=== PATIENT | female | born 1945 | race Caucasian/White ===

== ENCOUNTER 2017-12-10 19:38 | Inpatient (IN) | payer MEDICARE, MEDICAID ==
[2017-12-10 20:00] LABS: Actual Bicarbonate (HCO3a) 19.2 mEq/L (22-26); Base Excess (BEa) -7.6 mEq/L (0 (+/-) 2.5); CO2 Tension 44.3 mmHg (35.0-45.0); Hematocrit-ABG 28.6 % (36.0-47.0); Hemoglobin (Hb) 10.7 g/dL (12.0-16.0); O2 Tension (PaO2) 83.3 mmHg (80.0-100.0); pH, Arterial 7.26 (7.35-7.45)
[2017-12-10 20:02] LABS: Analyzer IN Cardio ER; Calcium, Ionized 1.2 mmol/L (1.12-1.30); Puncture Site RR
[2017-12-10 20:03] LABS: Hemoglobin 9.8 g/dL (12.0-16.0); Mean Corpuscular HGB CONC 32.4 g/dL (32.0-36.0); Mean Corpuscular Volume 92.6 fl (81.0-99.0); Mean Platelet Volume 8.2 fL (7.4-10.4); Platelet Count 136 thou/uL (130-400); Red Blood Cell (RBC) Count 3.25 mill/uL (4.20-5.40); White Blood Cell (WBC) Count 4.6 thou/uL (4.8-10.8)
[2017-12-10 20:04] LABS: Bilirubin Negative (Negative); Blood, Urine Large (Negative); Clarity TURBID (Clear); Glucose, Urine (Dipstick) Negative (Negative); Leukocyte Large (Negative); Nitrite Negative (Negative); Protein, Urine (Dipstick) 100 mg/dL (Neg-Trace); Specific Gravity, Urine 1.013 (1.002-1.036); pH, Urine 7.5 (5.0-9.0)
[2017-12-10 20:06] LABS: Bacteria/HPF 4+ HPF (None Seen)
[2017-12-10 20:08] LABS: Pathc Cast-AUWi Flag 37.29 (0-2.49); Yeast-AUWi Flag 1635.3 (0-25.0)
[2017-12-10 20:08] LABS: INR-International Normal Ratio 1.4; PTT 30.8 SEC (22.9-36.1); Prothrombin Time 17.9 SEC (12.0-14.7)
[2017-12-10 20:14] LABS: Amphetamine Not Detected (NotDetected); Barbiturates Screen Detected (NotDetected); Benzodiazepine Screen Not Detected (NotDetected); Cocaine Metabolite Screen Not Detected (NotDetected); Medtox Control Line Valid? VALID (VALID); Medtox Reader # READER 4; Methadone Not Detected (NotDetected); Methamphetamine Not Detected (NotDetected); Opiate Screen Not Detected (NotDetected); Oxycodone Screen Not Detected (NotDetected); Phencyclidine (PCP) Not Detected (NotDetected); THC/Cannabinoid Screen Not Detected (NotDetected); Tricyclic Screen Not Detected (NotDetected)
[2017-12-10 20:16] LABS: Yeast-All Forms 2+ HPF (None Seen)
[2017-12-10 20:17] LABS: Hyaline Casts/LPF NONE SEEN LPF (0-3 Hyaline); Manual Microscopic Reviewed? No Path Casts Seen; Transitional Epithelial NONE SEEN HPF (0-3)
[2017-12-10 20:20] LABS: Band 18 % (5-11); Hypochromia SLIGHT = 6-15 cells (100X) (0-5/hpf); Lymphocytes 11 % (21-51); MDiff Complete? YES; Metamyelocyte 2 % (0-0); Monocytes 4 % (0-10); Myelocyte 1 % (0-0); Neutrophil 64 % (42-75); PLT Morphology Comment Appears Adequate
[2017-12-10 20:23] LABS: ALT (SGPT) 13 U/L (8-55); AST (SGOT) 42 U/L (5-34); Albumin 2.4 g/dL (3.4-4.8); Alkaline Phosphatase 37 U/L (40-150); Anion Gap 14 mmol/L (10-20); BUN (Urea Nitrogen) 42 mg/dL (9.8-20.1); Bilirubin, Total 0.4 mg/dL (0.2-1.2); Calc. Creatinine Clearance 0 mL/min (70-130); Calcium 7.8 mg/dL (7.8-10.44); Carbon Dioxide 18 mmol/L (23-31); Chloride 116 mmol/L (98-107); Estimated GFR-MDRD 32; Globulin 2.8 g/dL (2.4-3.5); Glucose 90 mg/dL (83-110); Protein, Total 5.2 g/dL (6.0-8.3); Sodium 145 mmol/L (136-145)
[2017-12-10 20:25] LABS: CKMB 6.6 ng/mL (0-6.6)
[2017-12-10 21:09] LABS: Troponin I 0.024 ng/mL (< 0.028)
[2017-12-10] MEDS ORDERED: Cefepime 2 GM/10 ML SYR ONE ×2 (21:16→21:39)
--- NOTE | 2017-12-10 21:32 | CT ---
HEAD CT WITHOUT CONTRAST 12/10/17 COMPARISON: 12/10/17 HISTORY: Altered mental status. TECHNIQUE: Serial axial CT imaging obtained at 5 mm intervals from vertex through skull base without contrast. FINDINGS: There is cerebral volume loss and cerebellar volume loss, stable. Periventricular hypodensity noted, evidence of small vessel disease. No intracranial hemorrhage, midline shift or mass effect. IMPRESSION: Stable volume loss. No intracranial hemorrhage. If there is concern for acute infarction, brain MRI i s recommended. POS: [facility]
--- NOTE | 2017-12-10 21:35 | RAD ---
PORTABLE FRONTAL CHEST RADIOGRAPH 12/10/17 COMPARISON: Prior study on same day. HISTORY: Urosepsis, intubated patient. FINDINGS: Supine imaging limits assessment for pneumothorax and pleural fluid. There is a right sided vascular catheter, distal tip overlying the region of the cavoatrial junction. There is a round calcified lesi on in the left upper quadrant, correlating with a calcified splenic lesion noted on a CT examination of the abdomen performed 12/18/12. Endotracheal tube terminating at the level of the clavicles. There is diffuse increased interstitial density in the perihilar regions and lung bases with dense op acity in the left base and blunting of the left costophrenic angles suggesting left pleural fluid, st able. IMPRESSION: Stable endotracheal tube. New right sided vascular catheter. Increased density in the perihilar regio n and lung bases suggests pulmonary edema, infectious pneumonitis or aspiration. POS: [facility]
--- NOTE | 2017-12-10 22:05 | RAD ---
PORTABLE SUPINE FRONTAL CHEST RADIOGRAPH 12/10/17 at 9:25 p.m. COMPARISON: 12/10/17 at 8:36 p.m. HISTORY: Emergency examination. FINDINGS: Stable endotracheal tube and right sided vascular catheter. Stable nonspecific pleural and parenchyma l opacity in the left lung base. Aeration is improved in the medial right lung base with mild residua l patchy nonspecific parenchymal opacity. IMPRESSION: Mild interval improvement in right basilar aeration. Study appears grossly unchanged otherwise. POS: [facility]
[2017-12-10] MEDS ORDERED: Ondansetron HCl/PF 4 MG/2 ML Vial IVP PRN (23:06)
[2017-12-10 23:08] LABS: Troponin I 0.037 ng/mL (< 0.028)
[2017-12-10] MEDS ORDERED: VANCOMYCIN IVPB SCH (23:28)
[2017-12-10 23:57] VITALS: BMI 22.6
[2017-12-10] MEDS ORDERED: Potassium Chloride 40 MEQ in Sodium Chloride 0.9% 250 ML 250 ML IVPB SCH (23:59)
[2017-12-11] MEDS: Sodium Chloride 0.9% 1,000 ML IV SCH ×2 (00:13→09:58)
--- NOTE | 2017-12-11 00:42 | HP ---
DATE OF ADMISSION: 12/10/2017 CHIEF COMPLAINT: 1. Acute respiratory failure. 2. Acute respiratory failure with low blood pressures. HISTORY OF PRESENT ILLNESS: This is a 72-year-old female. She is a resident of a long-term. The patient had a sudden drop in her blood pressures in 50s/30s and saturations went down and was noted to have urosepsis so long-term called the EMS and when the EMS arrived, the patient was completely hypoxic with saturations of 50%. The patient was intubated by EMS personnel and was started on IV f luids en route to [facility] When patient arrived here, she already received 4 liters of f luids and her blood pressures were 95/57 with a heart rate of 107. The patient was immediately start ed on Levophed drip in this hospital and she is completely intubated and unresponsive and she was sta rted on propofol sedation. The patient had a urinary tract infection with a normal white count, with clear signs of sepsis. She also had a chest x-ray here which was suspicious for a right lower lobe pneumonia, but otherwise no other source of infection could be noted. There is no family member acco mpanying the patient, so I called the number provided, Any Reddoch, the person to be notified, but th ere was no response and the phone was disconnected, the phone number was not valid, so unable to get any history from any of the family members nor any previous records. The patient has been assumed as a full code and been admitted to the ICU at this time. PAST MEDICAL HISTORY: 1. Patient has a history of seizures in the past. 2. Type 2 diabetes mellitus. 3. History of chronic hyponatremia. 4. History of depression. 5. History of recurrent infections. 6. She has contractures, possibly has a history of stroke in the past. 7. History of hypertension. 8. History of dyslipidemia. 9. She has a history of developmental delay and mental retardation. PAST SURGICAL HISTORY: Appendectomy. SOCIAL HISTORY: The patient lives in [facility]. She has a sister, Any Reddoch whom I tried to reach with no response at this time. The patient has otherwise no history of smoking. No history of alcohol, no history of illicit drug use. FAMILY HISTORY: No significant family history could be found on the previous charts and unable to ge t this history at this time because of the mental status. REVIEW OF SYSTEMS: Unable to get any review of systems because the patient is intubated. ALLERGIES: NITROFURANTOIN, SULFA ANTIBIOTICS. HOME MEDICATIONS: No home medications could be found at this time. We will talk to the long-term facility and get home medication list reconciled. PHYSICAL EXAMINATION: VITAL SIGNS: Blood pressures on Levophed drip overnight is 87/58 with a MAP of 70-75. Pulse ox 98% on 100% oxygen on 100% FiO2. Respiratory rate is 18. GENERAL: The patient is intubated currently and sedated. HEENT: Atraumatic, normocephalic. PERRLA. Extraocular movements could not be assessed as the patie nt is sedated. CARDIOVASCULAR: S1, S2 normal. No murmurs, rubs or gallops. LUNGS: Bilateral air entry was equal. Mild crackles were noted in the lower bases. ABDOMEN: Soft, nontender, no guarding, no rebound tenderness. Bowel sounds are normal. MUSCULOSKELETAL: No cough tenderness. No pedal edema. Patient has contractures of all 4 extremitie s. SKIN: No cyanosis, no erythema, no rash, no pallor. NEUROLOGIC: Cranial examination could not be done as the patient is intubated and sedated. PSYCHIATRIC: Cannot be done as the patient is intubated. NECK: Showing no evidence of any JVD. No thyromegaly. LABORATORY DATA: WBC is 4.6, hemoglobin is 9.8, hematocrit is 30.1, platelets are 136. Sodium is 14 5, potassium 3.0, chloride is 116, bicarbonate is 18, BUN is 42, creatinine is 1.58, AST 42, ALT 13. Troponin 0.037. ASSESSMENT AND PLAN: 1. Septic shock. 2. Acute urinary tract infection. 3. Possible right lower lobe pneumonia. 4. Acute hypokalemia. 5. Vgx-QG-vwzxawgtd myocardial infarction. 6. Acute hypoxic respiratory failure. 7. Type 2 diabetes mellitus. 8. Acute kidney injury, on chronic kidney disease stage 4. 9. Anemia of chronic disease. 10. History of previous strokes. PLAN: 1. Plan is to admit this patient to the ICU and continue with the mechanical ventilation at this mundo e. Pulmonary has been consulted from the ER. We will closely follow up with their recommendations. Currently, the plan is to continue the patient on Levophed drip to keep them between 65-70. We will continue with IV fluids at this time at 100 mL an hour. Patient already got 3.5 liters in the ER an d we will continue with the fluid resuscitation and closely monitor the urine output. 2. Patient has evidence of urinary tract infection with the possible pneumonia in the right lung. W e will start with cefepime 2 grams IV b.i.d. with vancomycin 1 gram b.i.d. and along with levofloxaci n to cover pseudomonal infection. We will continue with the blood cultures evaluation and we will re peat blood culture evaluation. 3. Patient has a history of acute kidney injury. We will closely monitor. We will continue the pat ient on IV fluids at this time. Patient has low potassium. We will replace the potassium with potas sium protocol. 4. The patient has type 2 diabetes mellitus. Her blood sugars are well controlled at this time and we will closely monitor. We will get hemoglobin A1c. 5. Patient has history of stroke and has contractures. We will closely monitor. Possibly, this cou ld be another major stroke, but the CT of brain was negative. We will consult Neurology in the [facility]. 6. The patient has elevated troponins, most likely this could be a demand ischemia or possible MS as the patient's troponins were trending up. We will closely monitor and we will get a 2D echo in the morning. At that point, we will consult Cardiology. 7. We will continue with aspirin. We will do a perirectal aspirin today as a CT head was negative. 8. Cannot give beta blockers because of low heart rate. 9. CODE STATUS: FULL CODE as there is no family member available at this time and tried to reach al l the family members and none of the phone numbers on the chart are working at this time. May need t o reconnect with her long-term in the morning to get the code status corrected. 10. DVT prophylaxis with Lovenox 40 mg subcu daily. I spent 75 minutes with this patient of this one hour is the critical care time.
[2017-12-11] MEDS ORDERED: Norepinephrine 8 MG in Sodium Chloride 0.9% 250 ML 250 ML IVPB PRN (00:46)
[2017-12-11] MEDS ORDERED: Dextrose 50% Abboject 50 ML SYRINGE IVP PRN (00:46)
[2017-12-11] MEDS ORDERED: Dextrose 5% in Water 1,000 ML IV PRN (00:46)
[2017-12-11] MEDS: Insulin Regular 300 UNITS/3 ML VIAL SC PRN ×3 (02:36→22:08)
[2017-12-11 02:44] LABS: Troponin I 0.043 ng/mL (< 0.028)
[2017-12-11 06:48] LABS: ALT (SGPT) 13 U/L (8-55); AST (SGOT) 41 U/L (5-34); Albumin 2.3 g/dL (3.4-4.8); Alkaline Phosphatase 40 U/L (40-150); Anion Gap 10 mmol/L (10-20); BUN (Urea Nitrogen) 34 mg/dL (9.8-20.1); Bilirubin, Total 0.3 mg/dL (0.2-1.2); CRP (Inflammatory) 31.72 mg/dL (= or < 0.5); Calc. Creatinine Clearance 42 mL/min (70-130); Calcium 7.8 mg/dL (7.8-10.44); Carbon Dioxide 19 mmol/L (23-31); Chloride 119 mmol/L (98-107); Estimated GFR-MDRD 46; Glucose 88 mg/dL (83-110); Protein, Total 5.3 g/dL (6.0-8.3); Sodium 144 mmol/L (136-145)
[2017-12-11 06:52] LABS: Band 53 % (5-11); Hemoglobin 9.6 g/dL (12.0-16.0); Lymphocytes 13 % (21-51); MDiff Complete? YES; Mean Corpuscular HGB CONC 32.9 g/dL (32.0-36.0); Mean Corpuscular Hemoglobin 29.3 pg (27.0-31.0); Mean Corpuscular Volume 89.1 fl (81.0-99.0); Mean Platelet Volume 7.4 fL (7.4-10.4); Metamyelocyte 2 % (0-0); Monocytes 5 % (0-10); Neutrophil 27 % (42-75); PLT Morphology Comment Appears Adequate; Platelet Count 205 thou/uL (130-400); Red Blood Cell (RBC) Count 3.27 mill/uL (4.20-5.40); Vacuoles SLIGHT; White Blood Cell (WBC) Count 8.7 thou/uL (4.8-10.8)
[2017-12-11 08:02] LABS: Actual Bicarbonate (HCO3a) 18.1 mEq/L (22-26); Base Excess (BEa) -5.7 mEq/L (0 (+/-) 2.5); CO2 Tension 29.6 mmHg (35.0-45.0); O2 Tension (PaO2) 157.2 mmHg (80.0-100.0); pH, Arterial 7.41 (7.35-7.45)
[2017-12-11 08:03] LABS: Calcium, Ionized 1.2 mmol/L (1.12-1.30); Hematocrit-ABG 29.2 % (36.0-47.0); Hemoglobin (Hb) 9.7 g/dL (12.0-16.0); Puncture Site RRA
[2017-12-11] MEDS ORDERED: Prevnar 13-Val Conj/PF 0.5 ML SYRINGE IM ONE (09:00)
[2017-12-11] MEDS ORDERED: FLU VACC TS2017-18 (>65YR) 0.5 ML SYRINGE IM ONE (09:00)
[2017-12-11] MEDS ORDERED: Cefepime 2 GM in Sodium Chloride 0.9% 100 ML IVPB SCH ×2 (09:00→21:00)
[2017-12-11] MEDS ORDERED: Famotidine/PF 20 mg/2ml Vial SLOW IVP SCH (09:00)
[2017-12-11] MEDS ORDERED: Cefepime 2 GM, Syringe 2.5 ML in Sodium Chloride 0.9% 10 ML SLOW IVP SCH (09:00)
--- NOTE | 2017-12-11 09:11 | RAD ---
ABDOMEN 1 VIEW: HISTORY: A 72-year-old female with a history of NG tube placement for position check. FINDINGS: There is marked rotation to the left. There is a large stable intrasplenic calcification ossificatio n noted. NG tube is noted extending into the region of the distal antrum of the stomach. Minimal ga s in nondilated small bowel. IMPRESSION: Nasogastric tube in satisfactory location. Large stable ossification within the spleen. Scattered g as in essentially nondilated small bowel, nonspecific. POS: [facility]
[2017-12-11] MEDS: Aspirin 300 MG Suppository PR SCH (09:50)
[2017-12-11] MEDS: Enoxaparin Sodium 30 MG/0.3 ML SYRINGE SC SCH (09:52)
[2017-12-11] MEDS ORDERED: Famotidine 40 MG/4 ML VIAL SLOW IVP SCH (10:15)
--- NOTE | 2017-12-11 10:55 | PDOC.PN ---
- Subjective Encounter Start Date: 12/11/17 Encounter Start Time: 11:03 Subjective: Remains intubated 2/2 acute hypoxic respiratory failure. -: No acute events overngiht. - Objective Resuscitation Status: Resuscitation Status FULL:Full Resuscitation MAR Reviewed: Yes Vital Signs & Weight: Vital Signs (12 hours) Temp Pulse Resp BP 12/11/17 08:00 100.6 F H 102 H 22 H 12/11/17 07:52 102 H 107/72 12/11/17 07:00 100.6 F H 12/11/17 06:00 16 12/11/17 04:00 16 12/11/17 03:17 112 H 12/11/17 02:00 16 12/11/17 00:17 97 12/11/17 00:00 97.9 F 16 Most Recent Monitor Data Heart Rate from ECG 99 NIBP 122/62 NIBP BP-Mean 84 Respiration from ECG 16 SpO2 100 I&O: 12/10/17 12/11/17 12/12/17 06:59 06:59 06:59 Intake Total 270 250 Output Total 240 140 Balance 30 110 Result Diagrams: 12/11/17 06:10 12/11/17 06:10 Additional Labs: Accuchecks 12/11/17 12/11/17 12/11/17 09:14 06:11 01:59 POC Glucose 71 86 199 H Phys Exam - Physical Examination Constitutional: NAD HEENT: PERRLA, moist MMs, sclera anicteric Neck: no JVD, supple Respiratory: no wheezing, no rales, no rhonchi, clear to auscultation bilateral Cardiovascular: RRR, no significant murmur, no rub Gastrointestinal: soft, non-tender, no distention, positive bowel sounds Musculoskeletal: no edema, pulses present Intubated. Cannot cooperate with exam. Skin: no rash, normal turgor Dx/Plan (1) Septic shock Code(s): A41.9 - SEPSIS, UNSPECIFIED ORGANISM; R65.21 - SEVERE SEPSIS WITH SEPTIC SHOCK Status: Acute Comment: Improving. Remains on pressors. Will continue IV fluids, antibiotics and maintain a MAP >=65. f/u blood cultures ( negative so far). (2) Acute respiratory failure with hypoxia Code(s): J96.01 - ACUTE RESPIRATORY FAILURE WITH HYPOXIA Status: Acute Comment: Continue mechanical ventilation, VAP bundle. PUlmonary on board. Recs appreciated. Daily SBT, CXR and ABG. (3) UTI (urinary tract infection) Status: Acute Qualifiers: Urinary tract infection type: acute cystitis Hematuria presence: without hematuria Qualified Code(s): N30.00 - Acute cystitis without hematuria Comment: Continue broad spectrum antibiotics. f/u urine culture (4) Right lower lobe pneumonia Code(s): J18.1 - LOBAR PNEUMONIA, UNSPECIFIED ORGANISM Status: Acute Qualifiers: Pneumonia type: due to unspecified organism Qualified Code(s): J18.1 - Lobar pneumonia, unspecified organism Comment: continue broad spectrum antibiotics. f/u blood cultures. (5) Acute on chronic renal failure Code(s): N17.9 - ACUTE KIDNEY FAILURE, UNSPECIFIED; N18.9 - CHRONIC KIDNEY DISEASE, UNSPECIFIED Status: Acute Comment: Resolving with hydration. Likely 2/2 hypoperfusion from septic shock. (6) Anemia in chronic kidney disease (CKD) Code(s): N18.9 - CHRONIC KIDNEY DISEASE, UNSPECIFIED; D63.1 - ANEMIA IN CHRONIC KIDNEY DISEASE Status: Acute Qualifiers: Chronic kidney disease stage: stage 3 (moderate) Qualified Code(s): N18.3 - Chronic kidney disease, stage 3 (moderate); D63.1 - Anemia in chronic kidney disease; D63.1 - Anemia in chronic kidney disease Comment: Monitor. (7) Type [address] elevation Code(s): I21.A1 - MYOCARDIAL INFARCTION TYPE 2 Status: Acute Comment: 2/2 demand ischemia from sepsis. Monitor. (8) History of CVA (cerebrovascular accident) Code(s): Z86.73 - PRSNL HX OF TIA (TIA), AND CEREB INFRC W/O RESID DEFICITS Status: Chronic (9) T2DM (type 2 diabetes mellitus) Status: Acute Qualifiers: Diabetes mellitus watermelon harvesting supervisor insulin use: with watermelon harvesting supervisor use Diabetes mellitus complication detail: with chronic kidney disease Chronic kidney disease stage: stage 3 (moderate) Comment: Continue SSI, hypoglycemia protocol and tube feeds. Obtain HbA1c. Finger stick glucose Q6H. (10) Hypokalemia Code(s): E87.6 - HYPOKALEMIA Status: Resolved (11) Seizure disorder Code(s): G40.909 - EPILEPSY, UNSP, NOT INTRACTABLE, WITHOUT STATUS EPILEPTICUS Status: Acute Comment: Continue home medications. - Plan cont current plan of care, bundy catheter, continue antibiotics, PT/OT, respiratory therapy, DVT proph w/lovenox * . Review of Systems - Medications/Allergies Allergies/Adverse Reactions: Allergies Allergy/AdvReac Type Severity Reaction Status Date / Time nitrofurantoin Allergy Verified 12/11/17 00:12 [From Macrobid] Sulfa (Sulfonamide Allergy Verified 12/11/17 00:12 Antibiotics) sulfamethoxazole Allergy Verified 12/11/17 00:12 [From Bactrim] tramadol Allergy Verified 12/11/17 00:12 trimethoprim [From Bactrim] Allergy Verified 12/11/17 00:12 Medications: Current Medications Albuterol/Ipratropium (Duoneb) 3 ml NEB TID-RT [facility] Aspirin (Aspirin) 300 mg NE DAILY [facility] Last Admin: 12/11/17 09:50 Dose: 300 mg Dextrose/Water (Dextrose 50%) 25 gm IVP PRN PRN PRN Reason: HYPOGLYCEMIA PROTOCOL Enoxaparin Sodium (Lovenox) 30 mg SC 0900 [facility] Last Admin: 12/11/17 09:52 Dose: 30 mg Famotidine (Pepcid) 20 mg SLOW IVP Q24HR [facility] Famotidine (Pepcid) 20 mg SLOW IVP NOW [facility] Stop: 12/11/17 12:00 Glucagon (Glucagon) 1 mg IM PRN PRN PRN Reason: HYPOGLYCEMIA PROTOCOL Hydrocortisone Sodium Succinate (Solu-Cortef) 50 mg IVP Q6HR [facility] Stop: 12/18/17 12:01 Vancomycin HCl 1 gm/ Sodium (Chloride) 250 mls @ 166.67 mls/hr IVPB 2100 [facility] Cefepime HCl 2 gm/ Syringe 2.5 (ml/ Sodium Chloride) 12.5 mls @ 150 mls/hr SLOW IVP 2000 [facility] Levofloxacin 750 mg/ Device 150 mls @ 100 mls/hr IVPB Q2D@2300 [facility] Norepinephrine Bitartrate 8 mg (/ Sodium Chloride) 258 mls @ 0 mls/hr IVPB INF PRN; Protocol; Titrate PRN Reason: Blood Pressure Dextrose/Water (D5w) 1,000 mls @ 0 mls/hr IV INF PRN; As Directed PRN Reason: HYPOGLYCEMIA PROTOCOL Ascorbic Acid 1,500 mg/ Sodium (Chloride) 53 mls @ 70.667 mls/hr IVPB Q6HR [facility] Stop: 12/15/17 06:44 Piperacillin Sod/Tazobactam (Sod 3.375 gm/ Sodium Chloride) 100 mls @ 200 mls/ hr IVPB Q6HR [facility] Thiamine HCl 200 mg/ Sodium (Chloride) 52 mls @ 100 mls/hr IVPB Q12HR [facility] Stop: 12/14/17 21:32 Last Admin: 12/11/17 09:52 Dose: 52 mls Insulin Human Regular (Humulin R) 0 units SC .MILD SLIDING PRN; Protocol PRN Reason: MILD SLIDING SCALE Last Admin: 12/11/17 02:36 Dose: 2 units Miscellaneous Medication (Pharmacy To Dose) 1 each IVPB .VANCOMYCIN [facility] Ondansetron HCl (Zofran) 4 mg IVP Q6H PRN PRN Reason: Nausea/Vomiting
[2017-12-11] MEDS: Hydrocortisone Sod Succ/PF 100 mg/2 ml Vial IVP SCH ×3 (12:10→23:31)
[2017-12-11] MEDS: Piperacillin/Tazobactam 3.375 GM in Sodium Chloride 0.9% 100 ML IVPB SCH ×3 (12:16→23:37)
--- NOTE | 2017-12-11 19:31 | CON ---
DATE OF CONSULTATION: 12/11/2017 Maggie Willis is mentally challenged 72-year-old female from [place], who was transferred here w ith hypertension, shock with presumed urosepsis. Nurses have tried multiple times to contact family members, none available at this time. Once again, we will try to get additional information. She presented to [place] ER with urosepsis, hypertension, halfway patient found unresponsiv e. All information obtained from talking to the ER doctor last night. Blood pressure was low and sats were in the 70s. She was intubated, given 4 liters of fluid. PAST MEDICAL HISTORY: From the medical records includes a history of depression and history of menta l retardation. MEDICATIONS: List of medicines includes lisinopril, aspirin, BuSpar, phenobarbital, Depakote, Colace , trazodone, Lantus. The halfway records from [place] states that she has a diagnosis of moderate intelligent dis ability. Insomnia, seizures, muscle weakness, chronic renal failure, chronic pain, dysphagia, unsteady gait, m uscle wasting, cognitive-communication deficit. Diabetes, hyperlipidemia, hyponatremia, major depres milton. There is a list of medicine as outlined. We are unable to see any other information at this time. O nce again, we will notify and contact family members. ALLERGIES: She has allergy to SULFA, apparently MACROBID. REVIEW OF SYSTEMS: Unobtainable. PHYSICAL EXAMINATION: VITAL SIGNS: She is on Levophed 2 mcg, blood pressure 110/60, pulse 102, SATs 100%; temperature 100. GENERAL: She is clearly mentally challenged. CHEST: No wheezing, no crackle. CARDIAC: Normal S1 and S2. ABDOMEN: Soft. No masses. LABORATORY DATA: White count 8,000, H and H 9 and 20, platelet count 205, 53 segs, 27 bands. Electr olytes are normal. Creatinine is 1.6. TSH, cortisol level was 24, slightly decreased, may have rela tive adrenal insufficiency. Thyroid function was normal. Chest x-ray is clear. Blood gases obtained. She has adequate oxygenation. IMPRESSION: 1. Probably urosepsis, awaiting cultures. 2. Mental retardation. 3. Seizure disorders. 4. Apparently dysphagia. PLAN: Until we get additional information from family members, we are stuck with the problem per the records from [place] that reveal she has got a chronic dysphagia, chronic dementia, mental yovany rdation, lipidemia, diabetes, unsteady gait, recurrent urinary tract infection. We will cover for urosepsis, pressors, antibiotics, steroids. We will follow. Hopefully, try and wean as soon as possible. Await input from family as they arrive. This is a 45-minute critical care time exclusively spent at the bedside.
[2017-12-11] MEDS: Cefepime 2 GM, Syringe 2.5 ML in Sodium Chloride 0.9% 10 ML SLOW IVP SCH (20:29)
[2017-12-11] MEDS ORDERED: Vancomycin HCl 1 GM in Premix Bag 1 BAG IVPB SCH (21:00)
[2017-12-11] MEDS ORDERED: Vancomycin HCl 1 GM in Sodium Chloride 0.9% 250 ML 250 ML IVPB SCH (21:00)
[2017-12-12] MEDS: Insulin Regular 300 UNITS/3 ML VIAL SC PRN ×4 (05:07→22:12)
[2017-12-12] MEDS: Hydrocortisone Sod Succ/PF 100 mg/2 ml Vial IVP SCH ×3 (05:08→17:26)
[2017-12-12] MEDS: Piperacillin/Tazobactam 3.375 GM in Sodium Chloride 0.9% 100 ML IVPB SCH ×3 (05:58→17:26)
[2017-12-12 06:05] LABS: Anion Gap 10 mmol/L (10-20); BUN (Urea Nitrogen) 30 mg/dL (9.8-20.1); Calc. Creatinine Clearance 46 mL/min (70-130); Calcium 8.1 mg/dL (7.8-10.44); Carbon Dioxide 21 mmol/L (23-31); Chloride 118 mmol/L (98-107); Estimated GFR-MDRD 52; Glucose 218 mg/dL (83-110); Potassium 3.6 mmol/L (3.5-5.1); Sodium 145 mmol/L (136-145)
[2017-12-12 06:15] LABS: Hemoglobin A1c 5.3 % (4.0-6.0)
[2017-12-12 06:16] LABS: Band 30 % (5-11); Hemoglobin 8.7 g/dL (12.0-16.0); Lymphocytes 12 % (21-51); MDiff Complete? YES; Mean Corpuscular HGB CONC 33.6 g/dL (32.0-36.0); Mean Corpuscular Hemoglobin 30.4 pg (27.0-31.0); Mean Corpuscular Volume 90.6 fl (81.0-99.0); Mean Platelet Volume 8.3 fL (7.4-10.4); Monocytes 4 % (0-10); Myelocyte 2 % (0-0); Neutrophil 52 % (42-75); Platelet Count 172 thou/uL (130-400); Red Blood Cell (RBC) Count 2.87 mill/uL (4.20-5.40); White Blood Cell (WBC) Count 5.5 thou/uL (4.8-10.8)
[2017-12-12 07:21] LABS: ALV-art Gradient 90.475 (0-20); Actual Bicarbonate (HCO3a) 18.2 mEq/L (22-26); Base Excess (BEa) -5.1 mEq/L (0 (+/-) 2.5); CO2 Tension 27.3 mmHg (35.0-45.0); Calcium, Ionized 1.2 mmol/L (1.12-1.30); Hematocrit-ABG 22.1 % (36.0-47.0); Hemoglobin (Hb) 8.1 g/dL (12.0-16.0); O2 Tension (PaO2) 89.3 mmHg (80.0-100.0); Puncture Site RRA; pH, Arterial 7.44 (7.35-7.45)
--- NOTE | 2017-12-12 08:30 | PRG ---
DATE OF SERVICE: 12/12/2017 This morning the patient appears to be in no distress. PHYSICAL EXAMINATION: VITAL SIGNS: Blood pressure 132/75, sats 99, respiration is 18. I's and O's have been 4092 in, 109 out. GENERAL: She is mentally challenged. Unable to get any responsive though appears to be in no acute distress. CHEST: Chest reveals decreased breath sounds, minimal rhonchi. CARDIAC: Normal S1, S2, no gallops. ABDOMEN: Abdomen is soft. LABORATORY DATA: White count 5000, H&H 8 and 26, platelet count 72, pO2 is 89, pCO2 77.44, 16, 30%. Creatinine is normal. BUN is slightly elevated. Azotemia has improved. IMPRESSION: 1. Urinary tract infection, sepsis. 2. Hypertension. 3. Proteus resolved. PLAN: She is on Maxipime and Zosyn which are adequate. She is intubated on the vent. I am going to plan to wean and extubate. This is a one-half critical care time. I will follow.
[2017-12-12] MEDS ORDERED: Famotidine 40 MG/4 ML VIAL SLOW IVP SCH (09:00)
--- NOTE | 2017-12-12 09:13 | RAD ---
SINGLE VIEW OF THE CHEST: COMPARISON: 12/10/17. HISTORY: Ventilated patient with respiratory failure. FINDINGS: A single view of the chest shows a normal size cardiomediastinal silhouette. The lines and tubes are unchanged in position. There is no evidence of consolidation, mass, or pleural effusion. IMPRESSION: Stable exam. POS: [facility]
[2017-12-12] MEDS: Aspirin 300 MG Suppository PR SCH (09:54)
[2017-12-12] MEDS: Enoxaparin Sodium 30 MG/0.3 ML SYRINGE SC SCH (09:54)
--- NOTE | 2017-12-12 13:24 | PDOC.PN ---
- Subjective Encounter Start Date: 12/12/17 Encounter Start Time: 13:38 Subjective: Mostly non-verbal at baseline but seems to be back at reported baseline -: Extubated earlier today -: No acute events overnight. - Objective Resuscitation Status: Resuscitation Status FULL:Full Resuscitation MAR Reviewed: Yes Vital Signs & Weight: Vital Signs (12 hours) Temp Pulse Resp BP Pulse Ox 12/12/17 08:20 98.4 F 95 20 94 L 12/12/17 06:20 95 132/75 12/12/17 06:19 78 19 99 12/12/17 06:00 16 12/12/17 04:00 16 12/12/17 02:00 16 12/12/17 01:53 75 Weight Admit Weight 132 lb 4.438 oz Weight 132 lb 4.438 oz Most Recent Monitor Data Heart Rate from ECG 94 NIBP 140/77 NIBP BP-Mean 98 Respiration from ECG 31 SpO2 93 I&O: 12/11/17 12/12/17 12/13/17 06:59 06:59 06:59 Intake Total 270 4092.3 260 Output Total 240 1010 325 Balance 30 3082.3 -65 Result Diagrams: 12/12/17 05:00 12/12/17 05:00 Additional Labs: Accuchecks 12/12/17 12/12/17 12/11/17 11:14 05:08 22:09 POC Glucose 237 H 249 H 267 H 12/11/17 16:04 POC Glucose 192 H Phys Exam - Physical Examination Constitutional: NAD HEENT: PERRLA, moist MMs, sclera anicteric Neck: no JVD, supple, full ROM Respiratory: no wheezing, no rales, no rhonchi, clear to auscultation bilateral Cardiovascular: RRR, no significant murmur, no rub Gastrointestinal: soft, non-tender, no distention, positive bowel sounds Musculoskeletal: no edema, pulses present Neurological: moves all 4 limbs Unable to cooperate w exam 2/2 intellectual disabilities Deviation from normal: Alert. Able to say "yes, no" to some questions. Skin: no rash, normal turgor Dx/Plan (1) UTI (urinary tract infection) Status: Acute Qualifiers: Urinary tract infection type: acute cystitis Hematuria presence: without hematuria Qualified Code(s): N30.00 - Acute cystitis without hematuria Comment: Continue broad spectrum antibiotics w cepepime and Zosyn. Culture grew Proteus and E. Coli. (2) Septic shock Code(s): A41.9 - SEPSIS, UNSPECIFIED ORGANISM; R65.21 - SEVERE SEPSIS WITH SEPTIC SHOCK Status: Resolved Comment: Resolved. BP stable. (3) Acute respiratory failure with hypoxia Code(s): J96.01 - ACUTE RESPIRATORY FAILURE WITH HYPOXIA Status: Resolved Comment: Extubated. (4) Right lower lobe pneumonia Code(s): J18.1 - LOBAR PNEUMONIA, UNSPECIFIED ORGANISM Status: Acute Qualifiers: Pneumonia type: due to unspecified organism Qualified Code(s): J18.1 - Lobar pneumonia, unspecified organism Comment: continue broad spectrum antibiotics. f/u blood cultures. (5) Acute on chronic renal failure Code(s): N17.9 - ACUTE KIDNEY FAILURE, UNSPECIFIED; N18.9 - CHRONIC KIDNEY DISEASE, UNSPECIFIED Status: Acute Qualifiers: Chronic kidney disease stage: stage 3 (moderate) Comment: Resolving with hydration. Likely 2/2 hypoperfusion from septic shock. (6) Anemia in chronic kidney disease (CKD) Code(s): N18.9 - CHRONIC KIDNEY DISEASE, UNSPECIFIED; D63.1 - ANEMIA IN CHRONIC KIDNEY DISEASE Status: Acute Qualifiers: Chronic kidney disease stage: stage 3 (moderate) Qualified Code(s): N18.3 - Chronic kidney disease, stage 3 (moderate); D63.1 - Anemia in chronic kidney disease; D63.1 - Anemia in chronic kidney disease Comment: Monitor. (7) Type [address] elevation Code(s): I21.A1 - MYOCARDIAL INFARCTION TYPE 2 Status: Acute Comment: 2/2 demand ischemia from sepsis. Monitor. (8) History of CVA (cerebrovascular accident) Code(s): Z86.73 - PRSNL HX OF TIA (TIA), AND CEREB INFRC W/O RESID DEFICITS Status: Chronic (9) T2DM (type 2 diabetes mellitus) Status: Acute Qualifiers: Diabetes mellitus regional intermodal truck driver insulin use: with fdc use Diabetes mellitus complication detail: with chronic kidney disease Chronic kidney disease stage: stage 3 (moderate) Comment: Continue SSI, hypoglycemia protocol and tube feeds. Obtain HbA1c. Finger stick glucose Q6H. (10) Hypokalemia Code(s): E87.6 - HYPOKALEMIA Status: Resolved (11) Seizure disorder Code(s): G40.909 - EPILEPSY, UNSP, NOT INTRACTABLE, WITHOUT STATUS EPILEPTICUS Status: Acute Comment: Continue home medications. - Plan cont current plan of care, bundy catheter, continue antibiotics, DVT proph w/ lovenox * . Review of Systems - Medications/Allergies Allergies/Adverse Reactions: Allergies Allergy/AdvReac Type Severity Reaction Status Date / Time nitrofurantoin Allergy Verified 12/11/17 00:12 [From Macrobid] Sulfa (Sulfonamide Allergy Verified 12/11/17 00:12 Antibiotics) sulfamethoxazole Allergy Verified 12/11/17 00:12 [From Bactrim] tramadol Allergy Verified 12/11/17 00:12 trimethoprim [From Bactrim] Allergy Verified 12/11/17 00:12 Medications: Current Medications Albuterol/Ipratropium (Duoneb) 3 ml NEB TID-RT [facility] Last Admin: 12/12/17 06:19 Dose: 3 ml Aspirin (Aspirin) 300 mg ND DAILY [facility] Last Admin: 12/12/17 09:54 Dose: 300 mg Dextrose/Water (Dextrose 50%) 25 gm IVP PRN PRN PRN Reason: HYPOGLYCEMIA PROTOCOL Enoxaparin Sodium (Lovenox) 30 mg SC 0900 [facility] Last Admin: 12/12/17 09:54 Dose: 30 mg Famotidine (Pepcid) 20 mg SLOW IVP Q24HR [facility] Last Admin: 12/12/17 09:56 Dose: 20 mg Glucagon (Glucagon) 1 mg IM PRN PRN PRN Reason: HYPOGLYCEMIA PROTOCOL Hydrocortisone Sodium Succinate (Solu-Cortef) 50 mg IVP Q6HR [facility] Stop: 12/18/17 12:01 Last Admin: 12/12/17 11:01 Dose: 50 mg Cefepime HCl 2 gm/ Syringe 2.5 (ml/ Sodium Chloride) 12.5 mls @ 150 mls/hr SLOW IVP 2000 [facility] Last Admin: 12/11/17 20:29 Dose: 12.5 mls Levofloxacin 750 mg/ Device 150 mls @ 100 mls/hr IVPB Q2D@2300 [facility] Norepinephrine Bitartrate 8 mg (/ Sodium Chloride) 258 mls @ 0 mls/hr IVPB INF PRN; Protocol; Titrate PRN Reason: Blood Pressure Dextrose/Water (D5w) 1,000 mls @ 0 mls/hr IV INF PRN; As Directed PRN Reason: HYPOGLYCEMIA PROTOCOL Ascorbic Acid 1,500 mg/ Sodium (Chloride) 53 mls @ 70.667 mls/hr IVPB Q6HR [facility] Stop: 12/15/17 06:44 Last Admin: 12/12/17 11:00 Dose: 53 mls Piperacillin Sod/Tazobactam (Sod 3.375 gm/ Sodium Chloride) 100 mls @ 200 mls/ hr IVPB Q6HR [facility] Last Admin: 12/12/17 11:01 Dose: 100 mls Thiamine HCl 200 mg/ Sodium (Chloride) 52 mls @ 100 mls/hr IVPB Q12HR [facility] Stop: 12/14/17 21:32 Last Admin: 12/12/17 10:58 Dose: 52 mls Insulin Human Regular (Humulin R) 0 units SC .MILD SLIDING PRN; Protocol PRN Reason: MILD SLIDING SCALE Last Admin: 12/12/17 11:14 Dose: 3 units Ondansetron HCl (Zofran) 4 mg IVP Q6H PRN PRN Reason: Nausea/Vomiting
[2017-12-12] MEDS: Cefepime 2 GM, Syringe 2.5 ML in Sodium Chloride 0.9% 10 ML SLOW IVP SCH (19:46)
[2017-12-13] MEDS: Hydrocortisone Sod Succ/PF 100 mg/2 ml Vial IVP SCH ×2 (00:12→06:15)
[2017-12-13] MEDS: Piperacillin/Tazobactam 3.375 GM in Sodium Chloride 0.9% 100 ML IVPB SCH ×4 (00:12→18:25)
[2017-12-13 04:57] LABS: Anion Gap 10 mmol/L (10-20); BUN (Urea Nitrogen) 26 mg/dL (9.8-20.1); Calc. Creatinine Clearance 46 mL/min (70-130); Calcium 8.7 mg/dL (7.8-10.44); Carbon Dioxide 26 mmol/L (23-31); Chloride 114 mmol/L (98-107); Estimated GFR-MDRD 52; Glucose 219 mg/dL (83-110); Potassium 3.2 mmol/L (3.5-5.1); Sodium 147 mmol/L (136-145)
[2017-12-13 05:17] LABS: Band 5 % (5-11); Hemoglobin 8.7 g/dL (12.0-16.0); Lymphocytes 10 % (21-51); MDiff Complete? YES; Mean Corpuscular HGB CONC 33.8 g/dL (32.0-36.0); Mean Corpuscular Hemoglobin 30.1 pg (27.0-31.0); Mean Corpuscular Volume 89.1 fl (81.0-99.0); Mean Platelet Volume 7.9 fL (7.4-10.4); Monocytes 2 % (0-10); Myelocyte 3 % (0-0); Neutrophil 80 % (42-75); Platelet Count 245 thou/uL (130-400); Red Blood Cell (RBC) Count 2.89 mill/uL (4.20-5.40); White Blood Cell (WBC) Count 9.3 thou/uL (4.8-10.8)
[2017-12-13] MEDS: Enoxaparin Sodium 30 MG/0.3 ML SYRINGE SC SCH (08:38)
[2017-12-13] MEDS: Famotidine 20 MG TAB PER TUBE SCH (08:39)
[2017-12-13] MEDS ORDERED: Aspirin 325 MG TAB PER TUBE SCH (09:00)
--- NOTE | 2017-12-13 09:03 | RAD ---
PORTABLE AP CHEST RADIOGRAPH: Date: 12-13-17 History: On ventilator. Follow up evaluation. Comparison: 12-12-17 FINDINGS: The endotracheal tube has been removed. Nasogastric tube and right internal jugular vein central veno us catheter remain in place. There is increased interstitial and patchy parenchymal opacities at the medial right lung base which may be related to developing pneumonia or aspiration pneumonitis. Minima l patchy density is seen at the left lung base which could be related atelectasis or pneumonitis. Car diac silhouette and pulmonary vasculature are within normal limits. Stable rounded calcified lesion i n the left upper quadrant is again present. No other interval change. IMPRESSION: 1. Bibasilar parenchymal opacities which may be related to bibasilar pneumonia or aspiration pneumoni tis. This could be related to atelectasis. Follow up to resolution is recommended. 2. Interval removal of endotracheal tube. POS: MICHAEL
[2017-12-13] MEDS: Potassium Chloride 40 MEQ in Sodium Chloride 0.9% 250 ML 250 ML IVPB SCH ×2 (09:28→18:13)
[2017-12-13] MEDS: Insulin Regular 300 UNITS/3 ML VIAL SC PRN (11:35)
--- NOTE | 2017-12-13 13:19 | PDOC.PN ---
- Subjective Encounter Start Date: 12/13/17 Encounter Start Time: 13:22 Subjective: More alert today. Answering simple questions appropriately. -: No acte events overnight - Objective Resuscitation Status: Resuscitation Status FULL:Full Resuscitation MAR Reviewed: Yes Vital Signs & Weight: Vital Signs (12 hours) Temp Pulse Resp Pulse Ox 12/13/17 08:00 97.9 F 92 20 98 12/13/17 06:48 87 18 91 L 12/13/17 04:00 97.7 F Weight Admit Weight 132 lb 4.438 oz Weight 132 lb 4.438 oz Most Recent Monitor Data Heart Rate from ECG 90 NIBP 132/66 NIBP BP-Mean 109 Respiration from ECG 28 SpO2 92 I&O: 12/12/17 12/13/17 12/14/17 06:59 06:59 06:59 Intake Total 4092.3 1745 Output Total 1010 2285 325 Balance 3082.3 -540 -325 Result Diagrams: 12/13/17 04:29 12/13/17 04:29 Additional Labs: Accuchecks 12/13/17 12/13/17 12/12/17 11:18 04:24 22:12 POC Glucose 218 H 228 H 212 H 12/12/17 16:41 POC Glucose 258 H Phys Exam - Physical Examination Constitutional: NAD HEENT: PERRLA, moist MMs, sclera anicteric Neck: no JVD, supple, full ROM Respiratory: no wheezing, no rales, no rhonchi, clear to auscultation bilateral Cardiovascular: RRR, no significant murmur, no rub Gastrointestinal: soft, non-tender, no distention, positive bowel sounds Musculoskeletal: no edema, pulses present Awake, oriented to person only. Unable to cooperate w full neuro exam. Skin: no rash, normal turgor Dx/Plan (1) Right lower lobe pneumonia Code(s): J18.1 - LOBAR PNEUMONIA, UNSPECIFIED ORGANISM Status: Acute Qualifiers: Pneumonia type: due to unspecified organism Qualified Code(s): J18.1 - Lobar pneumonia, unspecified organism Comment: Patient continues to improve. Cultures negative to date. Will continue broad spectrum antibiotics. f/u final blood cultures. (2) UTI (urinary tract infection) Status: Acute Qualifiers: Urinary tract infection type: acute cystitis Hematuria presence: without hematuria Qualified Code(s): N30.00 - Acute cystitis without hematuria Comment: Continue broad spectrum antibiotics w cepepime and Zosyn. Culture grew Proteus and E. Coli. (3) Septic shock Code(s): A41.9 - SEPSIS, UNSPECIFIED ORGANISM; R65.21 - SEVERE SEPSIS WITH SEPTIC SHOCK Status: Resolved Comment: Resolved. BP stable. (4) Acute respiratory failure with hypoxia Code(s): J96.01 - ACUTE RESPIRATORY FAILURE WITH HYPOXIA Status: Resolved Comment: Extubated. (5) Acute on chronic renal failure Code(s): N17.9 - ACUTE KIDNEY FAILURE, UNSPECIFIED; N18.9 - CHRONIC KIDNEY DISEASE, UNSPECIFIED Status: Acute Qualifiers: Chronic kidney disease stage: stage 3 (moderate) Comment: Resolving with hydration. Likely 2/2 hypoperfusion from septic shock. (6) Anemia in chronic kidney disease (CKD) Code(s): N18.9 - CHRONIC KIDNEY DISEASE, UNSPECIFIED; D63.1 - ANEMIA IN CHRONIC KIDNEY DISEASE Status: Acute Qualifiers: Chronic kidney disease stage: stage 3 (moderate) Qualified Code(s): N18.3 - Chronic kidney disease, stage 3 (moderate); D63.1 - Anemia in chronic kidney disease; D63.1 - Anemia in chronic kidney disease Comment: Monitor. (7) Type [address] elevation Code(s): I21.A1 - MYOCARDIAL INFARCTION TYPE 2 Status: Resolved Comment: 2/ 2 demand ischemia from sepsis. Monitor. (8) History of CVA (cerebrovascular accident) Code(s): Z86.73 - PRSNL HX OF TIA (TIA), AND CEREB INFRC W/O RESID DEFICITS Status: Chronic (9) T2DM (type 2 diabetes mellitus) Status: Acute Qualifiers: Diabetes mellitus senior care insulin use: with pmo business analyst use Diabetes mellitus complication detail: with chronic kidney disease Chronic kidney disease stage: stage 3 (moderate) Comment: Continue SSI, hypoglycemia protocol and tube feeds. Obtain HbA1c. Finger stick glucose Q6H. (10) Hypokalemia Code(s): E87.6 - HYPOKALEMIA Status: Resolved (11) Seizure disorder Code(s): G40.909 - EPILEPSY, UNSP, NOT INTRACTABLE, WITHOUT STATUS EPILEPTICUS Status: Acute Comment: Continue home medications. (12) Dysphagia Code(s): R13.10 - DYSPHAGIA, UNSPECIFIED Status: Acute Comment: Likely from septic shock. More awake so STRUCTURAL DESIGN ENGINEER will re-evaluate. - Plan cont current plan of care, continue antibiotics, DVT proph w/lovenox * . Review of Systems - Medications/Allergies Allergies/Adverse Reactions: Allergies Allergy/AdvReac Type Severity Reaction Status Date / Time nitrofurantoin Allergy Verified 12/11/17 00:12 [From Macrobid] Sulfa (Sulfonamide Allergy Verified 12/11/17 00:12 Antibiotics) sulfamethoxazole Allergy Verified 12/11/17 00:12 [From Bactrim] tramadol Allergy Verified 12/11/17 00:12 trimethoprim [From Bactrim] Allergy Verified 12/11/17 00:12 Medications: Current Medications Albuterol/Ipratropium (Duoneb) 3 ml NEB TID-RT [facility] Last Admin: 12/13/17 06:48 Dose: 3 ml Aspirin (Aspirin) 325 mg PER TUBE DAILY [facility] Dextrose/Water (Dextrose 50%) 25 gm IVP PRN PRN PRN Reason: HYPOGLYCEMIA PROTOCOL Enoxaparin Sodium (Lovenox) 30 mg SC 0900 [facility] Last Admin: 12/13/17 08:38 Dose: 30 mg Famotidine (Pepcid) 20 mg PER TUBE 0900 [facility] Last Admin: 12/13/17 08:39 Dose: 20 mg Glucagon (Glucagon) 1 mg IM PRN PRN PRN Reason: HYPOGLYCEMIA PROTOCOL Cefepime HCl 2 gm/ Syringe 2.5 (ml/ Sodium Chloride) 12.5 mls @ 150 mls/hr SLOW IVP 2000 [facility] Last Admin: 12/12/17 19:46 Dose: 12.5 mls Dextrose/Water (D5w) 1,000 mls @ 0 mls/hr IV INF PRN; As Directed PRN Reason: HYPOGLYCEMIA PROTOCOL Piperacillin Sod/Tazobactam (Sod 3.375 gm/ Sodium Chloride) 100 mls @ 200 mls/ hr IVPB Q6HR [facility] Last Admin: 12/13/17 11:35 Dose: 100 mls Potassium Chloride 40 meq/ (Sodium Chloride) 270 mls @ 67.5 mls/hr IVPB 0900, 1700 [facility] Stop: 12/13/17 21:00 Last Admin: 12/13/17 09:28 Dose: 270 mls Insulin Human Regular (Humulin R) 0 units SC .MILD SLIDING PRN; Protocol PRN Reason: MILD SLIDING SCALE Last Admin: 12/13/17 11:35 Dose: 3 units Ondansetron HCl (Zofran) 4 mg IVP Q6H PRN PRN Reason: Nausea/Vomiting
--- NOTE | 2017-12-13 14:30 | PRG ---
DATE OF SERVICE: 12/13/2017 This morning she is moaning and groaning, but appears to be in no distress. PHYSICAL EXAMINATION: VITAL SIGNS: Sats are 91% on 2 liters, temperature 98, blood pressure of 108/ 75. I's and O's 1745 in, 2285 out. CHEST: Chest reveals bilateral rhonchi. CARDIAC: Normal S1, S2, no gallops. ABDOMEN: Soft. NEURO: Neurologically mentally retarded. LABORATORY: White count 9000, H&H 8 and 25, platelet count normal. Electrolytes are normal k is_ 3.2. Urine is growing Proteus and E. coli probably chronic colonization. IMPRESSION: 1. Respiratory failure. 2. Urosepsis, 3. Mental retardation. PLAN: I am going to deescalate antibiotics. She is going to be transferred out of the ICU. It is unclear whether she has any kind of physical therapy in the prison. She needs a swallow study to see if she can swallow. Otherwise, she may benefit from a PEG. REYNA
[2017-12-13] MEDS: Cefepime 2 GM, Syringe 2.5 ML in Sodium Chloride 0.9% 10 ML SLOW IVP SCH (19:43)
[2017-12-14] MEDS: Piperacillin/Tazobactam 3.375 GM in Sodium Chloride 0.9% 100 ML IVPB SCH ×2 (00:30→05:02)
[2017-12-14 05:33] LABS: Anion Gap 13 mmol/L (10-20); BUN (Urea Nitrogen) 23 mg/dL (9.8-20.1); Calc. Creatinine Clearance 46 mL/min (70-130); Calcium 8.7 mg/dL (7.8-10.44); Carbon Dioxide 25 mmol/L (23-31); Chloride 111 mmol/L (98-107); Estimated GFR-MDRD 52; Glucose 224 mg/dL (83-110); Potassium 3.7 mmol/L (3.5-5.1); Sodium 145 mmol/L (136-145)
[2017-12-14 05:53] LABS: Band 8 % (5-11); Eosinophils 1 % (0-10); Hemoglobin 9.2 g/dL (12.0-16.0); Lymphocytes 21 % (21-51); MDiff Complete? YES; Mean Corpuscular HGB CONC 33.9 g/dL (32.0-36.0); Mean Corpuscular Hemoglobin 29.2 pg (27.0-31.0); Mean Platelet Volume 7.2 fL (7.4-10.4); Monocytes 6 % (0-10); Myelocyte 2 % (0-0); Neutrophil 62 % (42-75); Platelet Count 312 thou/uL (130-400); RBC Distribution Width 13.3 % (11.5-14.5); Red Blood Cell (RBC) Count 3.15 mill/uL (4.20-5.40); White Blood Cell (WBC) Count 11.8 thou/uL (4.8-10.8)
[2017-12-14] MEDS: Famotidine 20 MG TAB PER TUBE SCH (09:10)
[2017-12-14] MEDS: Enoxaparin Sodium 30 MG/0.3 ML SYRINGE SC SCH (09:10)
[2017-12-14] MEDS: Aspirin 325 MG TAB PER TUBE SCH (09:10)
--- NOTE | 2017-12-14 10:36 | PDOC.PN ---
- Subjective Encounter Start Date: 12/14/17 Encounter Start Time: 10:41 Subjective: No new complaints -: No acute events overnight. - Objective Resuscitation Status: Resuscitation Status FULL:Full Resuscitation MAR Reviewed: Yes Vital Signs & Weight: Vital Signs (12 hours) Temp Pulse Resp BP Pulse Ox 12/14/17 07:44 99.7 F H 100 18 111/64 90 L 12/14/17 07:12 100 18 12/14/17 06:12 99.1 F 88 20 125/77 92 L 12/14/17 00:00 98.5 F 90 22 H 128/73 93 L Weight Admit Weight 132 lb 4.438 oz Weight 132 lb 4.438 oz Most Recent Monitor Data Heart Rate from ECG 90 NIBP 137/74 NIBP BP-Mean 111 Respiration from ECG 27 SpO2 96 I&O: 12/13/17 12/14/17 12/15/17 06:59 06:59 06:59 Intake Total 1745 1025 Output Total 2285 2760 Balance -540 -1736 Result Diagrams: 12/14/17 04:19 12/14/17 04:19 Additional Labs: Accuchecks 12/14/17 12/14/17 12/13/17 05:54 00:56 11:18 POC Glucose 214 H 222 H 218 H Phys Exam - Physical Examination Constitutional: NAD HEENT: PERRLA Neck: supple, full ROM Respiratory: no rales, clear to auscultation bilateral Cardiovascular: RRR, no significant murmur, no rub Gastrointestinal: soft, non-tender, no distention, positive bowel sounds Musculoskeletal: pulses present, edema present (minimal b/l lower extremities) Responds to simple questions. Unable to cooperate w full exam. Skin: no rash, normal turgor Dx/Plan (1) T2DM (type 2 diabetes mellitus) Status: Chronic Qualifiers: Diabetes mellitus superintendent terminal insulin use: with superintendent terminal use Diabetes mellitus complication detail: with chronic kidney disease Chronic kidney disease stage: stage 3 (moderate) Comment: Continue SSI, hypoglycemia protocol and tube feeds. HbA1c 5.3%. Finger stick glucose Q6H. (2) Right lower lobe pneumonia Code(s): J18.1 - LOBAR PNEUMONIA, UNSPECIFIED ORGANISM Status: Acute Qualifiers: Pneumonia type: due to unspecified organism Qualified Code(s): J18.1 - Lobar pneumonia, unspecified organism Comment: Patient continues to improve. Cultures negative to date. Will continue broad spectrum antibiotics and wean off oxygen. f/u final blood cultures. (3) UTI (urinary tract infection) Status: Acute Qualifiers: Urinary tract infection type: acute cystitis Hematuria presence: without hematuria Qualified Code(s): N30.00 - Acute cystitis without hematuria Comment: Continue broad spectrum antibiotics w cepepime and Zosyn. Culture grew Proteus and E. Coli. (4) Septic shock Code(s): A41.9 - SEPSIS, UNSPECIFIED ORGANISM; R65.21 - SEVERE SEPSIS WITH SEPTIC SHOCK Status: Resolved Comment: Resolved. BP stable. (5) Acute respiratory failure with hypoxia Code(s): J96.01 - ACUTE RESPIRATORY FAILURE WITH HYPOXIA Status: Resolved Comment: Extubated. (6) Acute on chronic renal failure Code(s): N17.9 - ACUTE KIDNEY FAILURE, UNSPECIFIED; N18.9 - CHRONIC KIDNEY DISEASE, UNSPECIFIED Status: Resolved Qualifiers: Chronic kidney disease stage: stage 3 (moderate) Comment: Resolved with hydration. Likely 2/2 hypoperfusion from septic shock. (7) Anemia in chronic kidney disease (CKD) Code(s): N18.9 - CHRONIC KIDNEY DISEASE, UNSPECIFIED; D63.1 - ANEMIA IN CHRONIC KIDNEY DISEASE Status: Acute Qualifiers: Chronic kidney disease stage: stage 3 (moderate) Qualified Code(s): N18.3 - Chronic kidney disease, stage 3 (moderate); D63.1 - Anemia in chronic kidney disease; D63.1 - Anemia in chronic kidney disease Comment: Monitor. (8) Type [address] elevation Code(s): I21.A1 - MYOCARDIAL INFARCTION TYPE 2 Status: Resolved Comment: 2/ 2 demand ischemia from sepsis. Monitor. (9) History of CVA (cerebrovascular accident) Code(s): Z86.73 - PRSNL HX OF TIA (TIA), AND CEREB INFRC W/O RESID DEFICITS Status: Chronic (10) Hypokalemia Code(s): E87.6 - HYPOKALEMIA Status: Resolved (11) Seizure disorder Code(s): G40.909 - EPILEPSY, UNSP, NOT INTRACTABLE, WITHOUT STATUS EPILEPTICUS Status: Chronic Comment: Continue home medications. (12) Dysphagia Code(s): R13.10 - DYSPHAGIA, UNSPECIFIED Status: Acute Comment: Likely from septic shock. 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 - Plan cont current plan of care, continue antibiotics, PT/OT, speech therapy, DVT proph w/lovenox Discharge pending speech pathology evaluation. * . Review of Systems - Medications/Allergies Allergies/Adverse Reactions: Allergies Allergy/AdvReac Type Severity Reaction Status Date / Time nitrofurantoin Allergy Verified 12/11/17 00:12 [From Macrobid] Sulfa (Sulfonamide Allergy Verified 12/11/17 00:12 Antibiotics) sulfamethoxazole Allergy Verified 12/11/17 00:12 [From Bactrim] tramadol Allergy Verified 12/11/17 00:12 trimethoprim [From Bactrim] Allergy Verified 12/11/17 00:12 Medications: Current Medications Albuterol/Ipratropium (Duoneb) 3 ml NEB TID-RT [facility] Last Admin: 12/14/17 07:12 Dose: 3 ml Aspirin (Aspirin) 325 mg PER TUBE DAILY [facility] Last Admin: 12/14/17 09:10 Dose: 325 mg Cefdinir (Omnicef) 300 mg PO BID [facility] Dextrose/Water (Dextrose 50%) 25 gm IVP PRN PRN PRN Reason: HYPOGLYCEMIA PROTOCOL Enoxaparin Sodium (Lovenox) 30 mg SC 0900 [facility] Last Admin: 12/14/17 09:10 Dose: 30 mg Famotidine (Pepcid) 20 mg PER TUBE 0900 [facility] Last Admin: 12/14/17 09:10 Dose: 20 mg Glucagon (Glucagon) 1 mg IM PRN PRN PRN Reason: HYPOGLYCEMIA PROTOCOL Dextrose/Water (D5w) 1,000 mls @ 0 mls/hr IV INF PRN; As Directed PRN Reason: HYPOGLYCEMIA PROTOCOL Insulin Human Regular (Humulin R) 0 units SC .MILD SLIDING PRN; Protocol PRN Reason: MILD SLIDING SCALE Last Admin: 12/13/17 11:35 Dose: 3 units Ondansetron HCl (Zofran) 4 mg IVP Q6H PRN PRN Reason: Nausea/Vomiting
--- NOTE | 2017-12-14 10:53 | PRG ---
DATE OF SERVICE: 12/14/2017 This morning still encephalopathic, mentally retarded patient. PHYSICAL EXAMINATION: VITAL SIGNS: Sats 90% on 2 liters, temperature is 99, blood pressure 140/64. CHEST: Chest revealed decreased breath sounds, no wheezing. CARDIAC: Normal S1, S2. ABDOMEN: Soft, no masses. LABORATORY: White count 11,000, H&H is 9 and 27, platelet count normal. Electrolytes are normal. IMPRESSION: 1. Urinary tract infection. 2. Sepsis. 3. Hypotension. 4. Respiratory failure, improved. 5. Severe mental retardation. PLAN: The patient continues to have a problem with dysphagia. I suggest getting a PEG. I will discuss with nurses or family members input. I will follow.
[2017-12-14] MEDS: Albuterol Sulfate 2.5 mg/3 ml Neb NEB SCH ×2 (12:55→19:58)
[2017-12-14] MEDS: Insulin Regular 300 UNITS/3 ML VIAL SC PRN ×2 (18:26→21:18)
[2017-12-14] MEDS: Cefdinir 300 MG CAP PO SCH (20:22)
[2017-12-15] MEDS: Insulin Regular 300 UNITS/3 ML VIAL SC PRN ×3 (05:32→21:03)
[2017-12-15] MEDS: Albuterol Sulfate 2.5 mg/3 ml Neb NEB SCH ×3 (07:01→19:58)
[2017-12-15] MEDS: Enoxaparin Sodium 30 MG/0.3 ML SYRINGE SC SCH (10:23)
[2017-12-15] MEDS: Aspirin 325 MG TAB PER TUBE SCH (10:23)
[2017-12-15] MEDS: Cefdinir 300 MG CAP PO SCH ×2 (10:23→21:03)
[2017-12-15] MEDS: Famotidine 20 MG TAB PER TUBE SCH (10:24)
[2017-12-15 11:10] LABS: Hemoglobin 8.4 g/dL (12.0-16.0); Mean Corpuscular HGB CONC 33.3 g/dL (32.0-36.0); Mean Corpuscular Volume 87.2 fl (81.0-99.0); Mean Platelet Volume 6.9 fL (7.4-10.4); Platelet Count 347 thou/uL (130-400); RBC Distribution Width 13.3 % (11.5-14.5); Red Blood Cell (RBC) Count 2.89 mill/uL (4.20-5.40); White Blood Cell (WBC) Count 15.5 thou/uL (4.8-10.8)
[2017-12-15 11:16] LABS: Anion Gap 10 mmol/L (10-20); BUN (Urea Nitrogen) 21 mg/dL (9.8-20.1); Calc. Creatinine Clearance 57 mL/min (70-130); Calcium 8.2 mg/dL (7.8-10.44); Carbon Dioxide 31 mmol/L (23-31); Chloride 104 mmol/L (98-107); Estimated GFR-MDRD 66; Glucose 343 mg/dL (83-110); Potassium 3.7 mmol/L (3.5-5.1); Sodium 141 mmol/L (136-145)
--- NOTE | 2017-12-15 11:20 | PDOC.PN ---
- Subjective Encounter Start Date: 12/15/17 Encounter Start Time: 11:27 Subjective: No new complaints -: No acute events overnight. - Objective Resuscitation Status: Resuscitation Status FULL:Full Resuscitation MAR Reviewed: Yes Vital Signs & Weight: Vital Signs (12 hours) Temp Pulse Resp BP Pulse Ox 12/15/17 07:25 98.4 F 97 20 135/79 99 12/15/17 07:00 80 16 12/15/17 04:39 99.2 F 92 20 150/90 H 97 12/15/17 04:00 99.2 F 89 20 150/90 H 99 Weight Admit Weight 132 lb 4.438 oz Weight 132 lb 4.438 oz Most Recent Monitor Data Heart Rate from ECG 90 NIBP 137/74 NIBP BP-Mean 111 Respiration from ECG 27 SpO2 96 I&O: 12/14/17 12/15/17 12/16/17 06:59 06:59 06:59 Intake Total 1025 80 Output Total 2760 1325 Balance -1735 -5504 Result Diagrams: 12/15/17 10:53 12/14/17 04:19 Additional Labs: Accuchecks 12/15/17 12/14/17 12/14/17 05:09 20:38 16:57 POC Glucose 265 H 287 H 308 H 12/14/17 11:20 POC Glucose 245 H Phys Exam - Physical Examination Constitutional: NAD HEENT: PERRLA, moist MMs, sclera anicteric Neck: no JVD, supple, full ROM Respiratory: no wheezing, no rales, no rhonchi, clear to auscultation bilateral Cardiovascular: RRR, no significant murmur, no rub Gastrointestinal: soft, non-tender, no distention, positive bowel sounds Musculoskeletal: no edema, pulses present Neurological: non-focal Psychiatric: normal affect Deviation from normal: Alert. Able to answer simple questions Skin: no rash, normal turgor Dx/Plan (1) Dysphagia Code(s): R13.10 - DYSPHAGIA, UNSPECIFIED Status: Acute Qualifiers: Dysphagia type: oropharyngeal phase Qualified Code(s): R13.12 - Dysphagia, oropharyngeal phase Comment: high risk for aspiration, per UX CONSULTANT. Palliative care spoje to family and PCP, Dr Orr- family still undecided if they would pursue PEG placement. Therefore, we will hold on for now. (2) T2DM (type 2 diabetes mellitus) Status: Chronic Qualifiers: Diabetes mellitus detention insulin use: with detention use Diabetes mellitus complication detail: with chronic kidney disease Chronic kidney disease stage: stage 3 (moderate) Comment: Not at goal. Will resume long acting insulin, continue SSI, hypoglycemia protocol and tube feeds. HbA1c 5.3%. Finger stick glucose Q6H. (3) Right lower lobe pneumonia Code(s): J18.1 - LOBAR PNEUMONIA, UNSPECIFIED ORGANISM Status: Acute Qualifiers: Pneumonia type: due to unspecified organism Qualified Code(s): J18.1 - Lobar pneumonia, unspecified organism Comment: Patient continues to improve. Cultures negative to date. (4) UTI (urinary tract infection) Status: Acute Qualifiers: Urinary tract infection type: acute cystitis Hematuria presence: without hematuria Qualified Code(s): N30.00 - Acute cystitis without hematuria Comment: Culture grew Proteus and E. Coli, sensitive to cefepime- will continue. (5) Septic shock Code(s): A41.9 - SEPSIS, UNSPECIFIED ORGANISM; R65.21 - SEVERE SEPSIS WITH SEPTIC SHOCK Status: Resolved Comment: Resolved. BP stable. (6) Acute respiratory failure with hypoxia Code(s): J96.01 - ACUTE RESPIRATORY FAILURE WITH HYPOXIA Status: Resolved Comment: Extubated. (7) Acute on chronic renal failure Code(s): N17.9 - ACUTE KIDNEY FAILURE, UNSPECIFIED; N18.9 - CHRONIC KIDNEY DISEASE, UNSPECIFIED Status: Resolved Qualifiers: Chronic kidney disease stage: stage 3 (moderate) Comment: Resolved with hydration. Likely 2/2 hypoperfusion from septic shock. (8) Anemia in chronic kidney disease (CKD) Code(s): N18.9 - CHRONIC KIDNEY DISEASE, UNSPECIFIED; D63.1 - ANEMIA IN CHRONIC KIDNEY DISEASE Status: Chronic Qualifiers: Chronic kidney disease stage: stage 3 (moderate) Qualified Code(s): N18.3 - Chronic kidney disease, stage 3 (moderate); D63.1 - Anemia in chronic kidney disease; D63.1 - Anemia in chronic kidney disease Comment: Monitor. (9) Type [address] elevation Code(s): I21.A1 - MYOCARDIAL INFARCTION TYPE 2 Status: Resolved Comment: 2/ 2 demand ischemia from sepsis. Monitor. (10) History of CVA (cerebrovascular accident) Code(s): Z86.73 - PRSNL HX OF TIA (TIA), AND CEREB INFRC W/O RESID DEFICITS Status: Chronic (11) Seizure disorder Code(s): G40.909 - EPILEPSY, UNSP, NOT INTRACTABLE, WITHOUT STATUS EPILEPTICUS Status: Chronic Comment: Continue home medications. - Plan cont current plan of care, plan discussed w/ family, social group worker, respiratory therapy, DVT proph w/lovenox F/u with family regarding PEG placement. * . Review of Systems - Medications/Allergies Allergies/Adverse Reactions: Allergies Allergy/AdvReac Type Severity Reaction Status Date / Time nitrofurantoin Allergy Verified 12/11/17 00:12 [From Macrobid] Sulfa (Sulfonamide Allergy Verified 12/11/17 00:12 Antibiotics) sulfamethoxazole Allergy Verified 12/11/17 00:12 [From Bactrim] tramadol Allergy Verified 12/11/17 00:12 trimethoprim [From Bactrim] Allergy Verified 12/11/17 00:12 Medications: Current Medications Albuterol Sulfate (Ventolin) 2.5 mg NEB [id number] [facility] Last Admin: 12/15/17 07:01 Dose: Not Given Albuterol/Ipratropium (Duoneb) 3 ml NEB TID-RT [facility] Last Admin: 12/15/17 07:00 Dose: 3 ml Aspirin (Aspirin) 325 mg PER TUBE DAILY [facility] Last Admin: 12/15/17 10:23 Dose: 325 mg Cefdinir (Omnicef) 300 mg PO BID [facility] Last Admin: 12/15/17 10:23 Dose: 300 mg Dextrose/Water (Dextrose 50%) 25 gm IVP PRN PRN PRN Reason: HYPOGLYCEMIA PROTOCOL Enoxaparin Sodium (Lovenox) 30 mg SC 0900 [facility] Last Admin: 12/15/17 10:23 Dose: 30 mg Famotidine (Pepcid) 20 mg PER TUBE 0900 [facility] Last Admin: 12/15/17 10:24 Dose: 20 mg Glucagon (Glucagon) 1 mg IM PRN PRN PRN Reason: HYPOGLYCEMIA PROTOCOL Dextrose/Water (D5w) 1,000 mls @ 0 mls/hr IV INF PRN; As Directed PRN Reason: HYPOGLYCEMIA PROTOCOL Insulin Human Regular (Humulin R) 0 units SC .MILD SLIDING PRN; Protocol PRN Reason: MILD SLIDING SCALE Last Admin: 12/15/17 05:32 Dose: 4 units Ondansetron HCl (Zofran) 4 mg IVP Q6H PRN PRN Reason: Nausea/Vomiting
[2017-12-15 11:36] LABS: Band 11 % (5-11); Eosinophils 1 % (0-10); Hypochromia SLIGHT = 6-15 cells (100X) (0-5/hpf); Lymphocytes 8 % (21-51); MDiff Complete? YES; Metamyelocyte 7 % (0-0); Monocytes 2 % (0-10); Myelocyte 4 % (0-0); Neutrophil 66 % (42-75); Polychromasia SLIGHT = 2-3 cells (100X) (0-2/hpf); Reactive Lymphocytes 1 % (0-10); Reflex for Review?? YES
--- NOTE | 2017-12-15 13:35 | PRG ---
DATE OF SERVICE: 12/14/2017 SUBJECTIVE: The patient this morning is awake, alert, and responsive. OBJECTIVE: VITAL SIGNS: Blood pressure 121/79, satting 97% on room air, respiratory rate 18. GENERAL: She appears to be in no respiratory distress. CHEST: Decreased breath sounds, no wheezing. CARDIAC: Normal S1, S2, no gallops. ABDOMEN: Soft. No masses. ASSESSMENT AND PLAN: 1. Urinary tract infection, gram negative. 2. Dysphagia with mental retardation. Suggest putting a PEG, transfer to the [facility] will follow at a distance. Call if needed.
[2017-12-16] MEDS: Insulin Regular 300 UNITS/3 ML VIAL SC PRN (05:19)
[2017-12-16 05:37] LABS: Anion Gap 12 mmol/L (10-20); BUN (Urea Nitrogen) 22 mg/dL (9.8-20.1); Calc. Creatinine Clearance 61 mL/min (70-130); Calcium 8.4 mg/dL (7.8-10.44); Carbon Dioxide 30 mmol/L (23-31); Chloride 104 mmol/L (98-107); Estimated GFR-MDRD 72; Glucose 274 mg/dL (83-110); Potassium 4.2 mmol/L (3.5-5.1); Sodium 142 mmol/L (136-145)
[2017-12-16 05:40] LABS: Band 12 % (5-11); Eosinophils 1 % (0-10); Hemoglobin 8.6 g/dL (12.0-16.0); Lymphocytes 19 % (21-51); MDiff Complete? YES; Mean Corpuscular HGB CONC 33.1 g/dL (32.0-36.0); Mean Corpuscular Hemoglobin 28.6 pg (27.0-31.0); Mean Corpuscular Volume 86.4 fl (81.0-99.0); Mean Platelet Volume 6.7 fL (7.4-10.4); Metamyelocyte 4 % (0-0); Monocytes 2 % (0-10); Myelocyte 4 % (0-0); Neutrophil 58 % (42-75); PLT Morphology Comment Appears Adequate; Platelet Count 374 thou/uL (130-400); RBC Distribution Width 13.3 % (11.5-14.5); Red Blood Cell (RBC) Count 2.99 mill/uL (4.20-5.40); White Blood Cell (WBC) Count 14.3 thou/uL (4.8-10.8)
[2017-12-16] MEDS: Albuterol Sulfate 2.5 mg/3 ml Neb NEB SCH ×3 (07:11→18:49)
[2017-12-16] MEDS: Aspirin 325 MG TAB PER TUBE SCH (08:27)
[2017-12-16] MEDS: Famotidine 20 MG TAB PER TUBE SCH (08:27)
[2017-12-16] MEDS: Cefdinir 300 MG CAP PO SCH ×2 (08:27→21:59)
[2017-12-16] MEDS: Enoxaparin Sodium 30 MG/0.3 ML SYRINGE SC SCH (08:27)
[2017-12-16] MEDS ORDERED: INSULIN GLARGINE HUM REC ANLOG 5 UNIT SQ SCH (09:00)
[2017-12-16] MEDS ORDERED: Insulin Detemir 100 UNITS/ML 5 UNITS in Pre-Filled Syringe 1 EACH SC SCH (09:00)
[2017-12-16] MEDS: Insulin Detemir 100 UNITS/ML 5 UNITS in Pre-Filled Syringe 1 EACH SC SCH ×2 (11:28→22:04)
--- NOTE | 2017-12-16 11:55 | PDOC.PN ---
- Subjective Encounter Start Date: 12/17/17 Encounter Start Time: 19:49 Subjective: No acute events overnight. - Objective Resuscitation Status: Resuscitation Status FULL:Full Resuscitation MAR Reviewed: Yes Vital Signs & Weight: Vital Signs (12 hours) Temp Pulse Resp BP Pulse Ox 12/16/17 08:16 99.2 F 97 16 118/53 L 98 12/16/17 08:00 99.2 F 97 16 99 12/16/17 07:11 88 16 97 12/16/17 04:00 98.2 F Weight Admit Weight 132 lb 4.438 oz Weight 132 lb 4.438 oz Most Recent Monitor Data Heart Rate from ECG 90 NIBP 137/74 NIBP BP-Mean 111 Respiration from ECG 27 SpO2 96 I&O: 12/15/17 12/16/17 12/17/17 06:59 06:59 06:59 Intake Total 80 120 40 Output Total 1325 250 Balance -1245 -130 40 Result Diagrams: 12/16/17 04:34 12/16/17 04:34 Additional Labs: Accuchecks 12/16/17 12/15/17 12/15/17 04:58 20:04 16:34 POC Glucose 273 H 283 H 286 H Dx/Plan (1) Dysphagia Code(s): R13.10 - DYSPHAGIA, UNSPECIFIED Status: Acute Qualifiers: Dysphagia type: oropharyngeal phase Qualified Code(s): R13.12 - Dysphagia, oropharyngeal phase Comment: High risk for aspiration. Palliative care spoke to family and PCP, Dr Orr- family undecided about PEG placement. Therefore, PEG on hold until family discussion held. Multiple attempts to reach family members unsuccessful. (2) Right lower lobe pneumonia Code(s): J18.1 - LOBAR PNEUMONIA, UNSPECIFIED ORGANISM Status: Acute Qualifiers: Pneumonia type: aspiration pneumonia Aspiration pneumonia type: due to regurgitated food Qualified Code(s): J69.0 - Pneumonitis due to inhalation of food and vomit Comment: Patient continues to improve. Cultures negative to date. Repeat CXR (3) T2DM (type 2 diabetes mellitus) Status: Chronic Qualifiers: Diabetes mellitus nursing home insulin use: with nursing home use Diabetes mellitus complication detail: with chronic kidney disease Chronic kidney disease stage: stage 3 (moderate) Comment: Improving. Continue long acting insulin, continue SSI, hypoglycemia protocol and tube feeds. HbA1c 5.3%. Finger stick glucose Q6H. (4) UTI (urinary tract infection) Status: Resolved Qualifiers: Urinary tract infection type: acute cystitis Hematuria presence: without hematuria Qualified Code(s): N30.00 - Acute cystitis without hematuria Comment: Culture grew Proteus and E. Coli, sensitive to cefepime- will continue. (5) Septic shock Code(s): A41.9 - SEPSIS, UNSPECIFIED ORGANISM; R65.21 - SEVERE SEPSIS WITH SEPTIC SHOCK Status: Resolved Comment: Resolved. BP stable. (6) Acute respiratory failure with hypoxia Code(s): J96.01 - ACUTE RESPIRATORY FAILURE WITH HYPOXIA Status: Resolved Comment: Extubated. (7) Acute on chronic renal failure Code(s): N17.9 - ACUTE KIDNEY FAILURE, UNSPECIFIED; N18.9 - CHRONIC KIDNEY DISEASE, UNSPECIFIED Status: Resolved Qualifiers: Chronic kidney disease stage: stage 3 (moderate) Comment: Resolved with hydration. Likely 2/2 hypoperfusion from septic shock. (8) Anemia in chronic kidney disease (CKD) Code(s): N18.9 - CHRONIC KIDNEY DISEASE, UNSPECIFIED; D63.1 - ANEMIA IN CHRONIC KIDNEY DISEASE Status: Chronic Qualifiers: Chronic kidney disease stage: stage 3 (moderate) Qualified Code(s): N18.3 - Chronic kidney disease, stage 3 (moderate); D63.1 - Anemia in chronic kidney disease; D63.1 - Anemia in chronic kidney disease Comment: Monitor. (9) Type [address] elevation Code(s): I21.A1 - MYOCARDIAL INFARCTION TYPE 2 Status: Resolved Comment: 2/ 2 demand ischemia from sepsis. Monitor. (10) History of CVA (cerebrovascular accident) Code(s): Z86.73 - PRSNL HX OF TIA (TIA), AND CEREB INFRC W/O RESID DEFICITS Status: Chronic (11) Seizure disorder Code(s): G40.909 - EPILEPSY, UNSP, NOT INTRACTABLE, WITHOUT STATUS EPILEPTICUS Status: Chronic Comment: Continue home medications. - Plan * . Review of Systems - Medications/Allergies Allergies/Adverse Reactions: Allergies Allergy/AdvReac Type Severity Reaction Status Date / Time nitrofurantoin Allergy Verified 12/11/17 00:12 [From Macrobid] Sulfa (Sulfonamide Allergy Verified 12/11/17 00:12 Antibiotics) sulfamethoxazole Allergy Verified 12/11/17 00:12 [From Bactrim] tramadol Allergy Verified 12/11/17 00:12 trimethoprim [From Bactrim] Allergy Verified 12/11/17 00:12 Medications: Current Medications Albuterol Sulfate (Ventolin) 2.5 mg NEB [id number] [facility] Last Admin: 12/16/17 07:11 Dose: 2.5 mg Aspirin (Aspirin) 325 mg PER TUBE DAILY [facility] Last Admin: 12/16/17 08:27 Dose: 325 mg Cefdinir (Omnicef) 300 mg PO BID [facility] Last Admin: 12/16/17 08:27 Dose: 300 mg Dextrose/Water (Dextrose 50%) 25 gm IVP PRN PRN PRN Reason: HYPOGLYCEMIA PROTOCOL Enoxaparin Sodium (Lovenox) 30 mg SC 0900 [facility] Last Admin: 12/16/17 08:27 Dose: 30 mg Famotidine (Pepcid) 20 mg PER TUBE 0900 [facility] Last Admin: 12/16/17 08:27 Dose: 20 mg Glucagon (Glucagon) 1 mg IM PRN PRN PRN Reason: HYPOGLYCEMIA PROTOCOL Dextrose/Water (D5w) 1,000 mls @ 0 mls/hr IV INF PRN; As Directed PRN Reason: HYPOGLYCEMIA PROTOCOL Insulin Detemir 5 units/ (Miscellaneous Medication) 0.05 mls @ 0 mls/hr SC Q12H [facility] PRN Reason: As Directed Last Admin: 12/16/17 11:28 Dose: 0.05 mls Insulin Human Regular (Humulin R) 0 units SC .MILD SLIDING PRN; Protocol PRN Reason: MILD SLIDING SCALE Last Admin: 12/16/17 05:19 Dose: 4 units Ondansetron HCl (Zofran) 4 mg IVP Q6H PRN PRN Reason: Nausea/Vomiting
[2017-12-17] MEDS: Albuterol Sulfate 2.5 mg/3 ml Neb NEB SCH ×3 (07:35→18:50)
[2017-12-17] MEDS: Enoxaparin Sodium 30 MG/0.3 ML SYRINGE SC SCH (08:11)
[2017-12-17] MEDS: Famotidine 20 MG TAB PER TUBE SCH (08:11)
[2017-12-17] MEDS: Aspirin 325 MG TAB PER TUBE SCH (08:11)
[2017-12-17] MEDS: Cefdinir 300 MG CAP PO SCH ×2 (08:11→22:01)
[2017-12-17] MEDS: Insulin Detemir 100 UNITS/ML 5 UNITS in Pre-Filled Syringe 1 EACH SC SCH ×2 (12:24→23:30)
[2017-12-17] MEDS: Insulin Regular 300 UNITS/3 ML VIAL SC PRN ×2 (12:25→17:17)
--- NOTE | 2017-12-17 15:20 | PDOC.PN ---
- Subjective Encounter Start Date: 12/17/17 Encounter Start Time: 15:22 Subjective: Stable. No complaints. No acute events overnight. - Objective Resuscitation Status: Resuscitation Status FULL:Full Resuscitation MAR Reviewed: Yes Vital Signs & Weight: Vital Signs (12 hours) Temp Pulse Resp BP Pulse Ox 12/17/17 13:54 88 16 93 L 12/17/17 08:19 99.0 F 82 20 162/82 H 100 12/17/17 08:00 99.0 F 82 20 100 12/17/17 07:35 82 15 99 Weight Admit Weight 132 lb 4.438 oz Weight 132 lb 4.438 oz Most Recent Monitor Data Heart Rate from ECG 90 NIBP 137/74 NIBP BP-Mean 111 Respiration from ECG 27 SpO2 96 I&O: 12/16/17 12/17/17 12/18/17 06:59 06:59 06:59 Intake Total 120 515 Output Total 250 1550 Balance -130 -1035 Result Diagrams: 12/16/17 04:34 12/16/17 04:34 Additional Labs: Accuchecks 12/17/17 12/17/17 12/16/17 11:15 05:13 19:54 POC Glucose 173 H 122 H 164 H 12/16/17 16:43 POC Glucose 171 H Phys Exam - Physical Examination Constitutional: NAD HEENT: PERRLA, moist MMs, sclera anicteric Neck: no JVD, supple, full ROM Respiratory: no wheezing, no rhonchi, clear to auscultation bilateral Cardiovascular: RRR, no significant murmur, no rub Gastrointestinal: soft, non-tender, no distention, positive bowel sounds Musculoskeletal: pulses present, edema present Unable to cooperate 2/2 intellectual disability. Answering simple questions Psychiatric: normal affect Dx/Plan (1) Dysphagia Code(s): R13.10 - DYSPHAGIA, UNSPECIFIED Status: Acute Qualifiers: Dysphagia type: oropharyngeal phase Qualified Code(s): R13.12 - Dysphagia, oropharyngeal phase Comment: High risk for aspiration. Palliative care spoke to family and PCP, Dr Orr- family undecided about PEG placement. Therefore, PEG on hold until family discussion held. Multiple attempts to reach family members unsuccessful. (2) Right lower lobe pneumonia Code(s): J18.1 - LOBAR PNEUMONIA, UNSPECIFIED ORGANISM Status: Acute Qualifiers: Pneumonia type: aspiration pneumonia Aspiration pneumonia type: due to regurgitated food Qualified Code(s): J69.0 - Pneumonitis due to inhalation of food and vomit Comment: Patient continues to improve. Cultures negative to date. Repeat CXR (3) T2DM (type 2 diabetes mellitus) Status: Chronic Qualifiers: Diabetes mellitus intermodal customer service insulin use: with long-term use Diabetes mellitus complication detail: with chronic kidney disease Chronic kidney disease stage: stage 3 (moderate) Comment: Improving. Continue long acting insulin, continue SSI, hypoglycemia protocol and tube feeds. HbA1c 5.3%. Finger stick glucose Q6H. (4) UTI (urinary tract infection) Status: Resolved Qualifiers: Urinary tract infection type: acute cystitis Hematuria presence: without hematuria Qualified Code(s): N30.00 - Acute cystitis without hematuria Comment: Culture grew Proteus and E. Coli, sensitive to cefepime- will continue. (5) Anemia in chronic kidney disease (CKD) Code(s): N18.9 - CHRONIC KIDNEY DISEASE, UNSPECIFIED; D63.1 - ANEMIA IN CHRONIC KIDNEY DISEASE Status: Chronic Qualifiers: Chronic kidney disease stage: stage 3 (moderate) Qualified Code(s): N18.3 - Chronic kidney disease, stage 3 (moderate); D63.1 - Anemia in chronic kidney disease; D63.1 - Anemia in chronic kidney disease Comment: Monitor. (6) Septic shock Code(s): A41.9 - SEPSIS, UNSPECIFIED ORGANISM; R65.21 - SEVERE SEPSIS WITH SEPTIC SHOCK Status: Resolved Comment: Resolved. BP stable. (7) Acute respiratory failure with hypoxia Code(s): J96.01 - ACUTE RESPIRATORY FAILURE WITH HYPOXIA Status: Resolved Comment: Extubated. (8) Acute on chronic renal failure Code(s): N17.9 - ACUTE KIDNEY FAILURE, UNSPECIFIED; N18.9 - CHRONIC KIDNEY DISEASE, UNSPECIFIED Status: Resolved Qualifiers: Chronic kidney disease stage: stage 3 (moderate) Comment: Resolved with hydration. Likely 2/2 hypoperfusion from septic shock. (9) Type [address] elevation Code(s): I21.A1 - MYOCARDIAL INFARCTION TYPE 2 Status: Resolved Comment: 2/ 2 demand ischemia from sepsis. Monitor. (10) History of CVA (cerebrovascular accident) Code(s): Z86.73 - PRSNL HX OF TIA (TIA), AND CEREB INFRC W/O RESID DEFICITS Status: Chronic (11) Seizure disorder Code(s): G40.909 - EPILEPSY, UNSP, NOT INTRACTABLE, WITHOUT STATUS EPILEPTICUS Status: Chronic Comment: Continue home medications. - Plan cont current plan of care, child protective services social worker, respiratory therapy, DVT proph w/ lovenox * . Review of Systems - Medications/Allergies Allergies/Adverse Reactions: Allergies Allergy/AdvReac Type Severity Reaction Status Date / Time nitrofurantoin Allergy Verified 12/11/17 00:12 [From Macrobid] Sulfa (Sulfonamide Allergy Verified 12/11/17 00:12 Antibiotics) sulfamethoxazole Allergy Verified 12/11/17 00:12 [From Bactrim] tramadol Allergy Verified 12/11/17 00:12 trimethoprim [From Bactrim] Allergy Verified 12/11/17 00:12 Medications: Current Medications Albuterol Sulfate (Ventolin) 2.5 mg NEB [id number] [facility] Last Admin: 12/17/17 13:54 Dose: 2.5 mg Aspirin (Aspirin) 325 mg PER TUBE DAILY [facility] Last Admin: 12/17/17 08:11 Dose: 325 mg Cefdinir (Omnicef) 300 mg PO BID [facility] Last Admin: 12/17/17 08:11 Dose: 300 mg Dextrose/Water (Dextrose 50%) 25 gm IVP PRN PRN PRN Reason: HYPOGLYCEMIA PROTOCOL Enoxaparin Sodium (Lovenox) 30 mg SC 0900 [facility] Last Admin: 12/17/17 08:11 Dose: 30 mg Famotidine (Pepcid) 20 mg PER TUBE 0900 [facility] Last Admin: 12/17/17 08:11 Dose: 20 mg Glucagon (Glucagon) 1 mg IM PRN PRN PRN Reason: HYPOGLYCEMIA PROTOCOL Dextrose/Water (D5w) 1,000 mls @ 0 mls/hr IV INF PRN; As Directed PRN Reason: HYPOGLYCEMIA PROTOCOL Insulin Detemir 5 units/ (Miscellaneous Medication) 0.05 mls @ 0 mls/hr SC Q12H [facility] PRN Reason: As Directed Last Admin: 12/17/17 12:24 Dose: 0.05 mls Insulin Human Regular (Humulin R) 0 units SC .MILD SLIDING PRN; Protocol PRN Reason: MILD SLIDING SCALE Last Admin: 12/17/17 12:25 Dose: 2 units Ondansetron HCl (Zofran) 4 mg IVP Q6H PRN PRN Reason: Nausea/Vomiting
[2017-12-17] MEDS ORDERED: Divalproex Sodium 125 mg Sprinkle Capsule PO SCH (16:45)
[2017-12-17] MEDS: Divalproex Sodium 125 mg Sprinkle Capsule PO SCH (22:02)
[2017-12-18] MEDS: Albuterol Sulfate 2.5 mg/3 ml Neb NEB SCH ×3 (05:49→19:12)
[2017-12-18 08:06] LABS: Hemoglobin 8.4 g/dL (12.0-16.0); Mean Corpuscular Hemoglobin 29.4 pg (27.0-31.0); Mean Corpuscular Volume 86.4 fl (81.0-99.0); Mean Platelet Volume 5.8 fL (7.4-10.4); Platelet Count 456 thou/uL (130-400); RBC Distribution Width 13.9 % (11.5-14.5); Red Blood Cell (RBC) Count 2.86 mill/uL (4.20-5.40); White Blood Cell (WBC) Count 10.2 thou/uL (4.8-10.8)
--- NOTE | 2017-12-18 08:15 | RAD ---
PORTABLE CHEST: Date: 12/18/17 PROVIDED CLINICAL HISTORY: Pneumonia. FINDINGS: Comparison with 12/13/17. Cardiac and mediastinal silhouette is unchanged in appearance. Right-sided central line and enteric c atheter are again noted in similar position. Prominence of the pulmonary vasculature is noted. There is persistent perihilar air space disease, more conspicuous right of midline. There is no pleural flu id or pneumothorax apparent. IMPRESSION: Persistent bilateral air space disease, which may reflect pneumonia or edema. Follow-up is eduardo d. POS: MICHAEL
[2017-12-18] MEDS: Aspirin 325 MG TAB PER TUBE SCH (08:18)
[2017-12-18] MEDS: Famotidine 20 MG TAB PER TUBE SCH (08:18)
[2017-12-18] MEDS: PHENobarbital 32.4 MG TAB PO SCH (08:18)
[2017-12-18] MEDS: Divalproex Sodium 125 mg Sprinkle Capsule PO SCH ×3 (08:18→21:55)
[2017-12-18] MEDS: Cefdinir 300 MG CAP PO SCH ×2 (08:18→21:55)
[2017-12-18] MEDS: Enoxaparin Sodium 30 MG/0.3 ML SYRINGE SC SCH (08:18)
[2017-12-18 08:23] LABS: Anion Gap 11 mmol/L (10-20); BUN (Urea Nitrogen) 21 mg/dL (9.8-20.1); Calc. Creatinine Clearance 59 mL/min (70-130); Calcium 8.6 mg/dL (7.8-10.44); Carbon Dioxide 29 mmol/L (23-31); Chloride 99 mmol/L (98-107); Estimated GFR-MDRD 70; Glucose 251 mg/dL (83-110); Potassium 4.7 mmol/L (3.5-5.1); Sodium 134 mmol/L (136-145)
[2017-12-18] MEDS: Insulin Detemir 100 UNITS/ML 5 UNITS in Pre-Filled Syringe 1 EACH SC SCH (09:47)
[2017-12-18] MEDS ORDERED: Sodium Bicarbonate Tab 325 MG TAB PER TUBE PRN (11:05)
[2017-12-18] MEDS ORDERED: Pancrelipase DR 12000 1 CAP FS PRN (11:05)
--- NOTE | 2017-12-18 12:35 | PDOC.PN ---
- Subjective Encounter Start Date: 12/18/17 Encounter Start Time: 12:45 Subjective: Responding to simple questions -: No acute events overnight. - Objective Resuscitation Status: Resuscitation Status FULL:Full Resuscitation MAR Reviewed: Yes Vital Signs & Weight: Vital Signs (12 hours) Temp Pulse Resp BP Pulse Ox 12/18/17 11:28 79 14 98 12/18/17 08:00 98.8 F 82 18 120/74 97 12/18/17 05:49 80 16 99 Weight Admit Weight 132 lb 4.438 oz Weight 132 lb 4.438 oz Most Recent Monitor Data Heart Rate from ECG 90 NIBP 137/74 NIBP BP-Mean 111 Respiration from ECG 27 SpO2 96 I&O: 12/17/17 12/18/17 12/19/17 06:59 06:59 06:59 Intake Total 515 80 80 Output Total 1550 250 Balance -1035 -170 80 Result Diagrams: 12/18/17 07:59 12/18/17 07:59 Additional Labs: Accuchecks 12/18/17 12/18/17 12/17/17 10:59 04:56 20:18 POC Glucose 241 H 249 H 175 H 12/17/17 17:07 POC Glucose 195 H Phys Exam - Physical Examination Constitutional: NAD HEENT: PERRLA, moist MMs, sclera anicteric Neck: no JVD, supple, full ROM Respiratory: no wheezing, no rales, no rhonchi, clear to auscultation bilateral Cardiovascular: RRR, no significant murmur, no rub Gastrointestinal: soft, non-tender, no distention, positive bowel sounds Musculoskeletal: no edema, pulses present Unable to cooperate Skin: no rash, normal turgor Dx/Plan (1) T2DM (type 2 diabetes mellitus) Status: Chronic Qualifiers: Diabetes mellitus termite control service representative insulin use: with assisted use Diabetes mellitus complication detail: with chronic kidney disease Chronic kidney disease stage: stage 3 (moderate) Comment: Fair control. Continue long acting insulin, SSI, hypoglycemia protocol and tube feeds. HbA1c 5.3%. Finger stick glucose Q6H. (2) Dysphagia Code(s): R13.10 - DYSPHAGIA, UNSPECIFIED Status: Acute Qualifiers: Dysphagia type: oropharyngeal phase Qualified Code(s): R13.12 - Dysphagia, oropharyngeal phase Comment: High risk for aspiration. Palliative care spoke to family and PCP, Dr Orr- family undecided about PEG placement. Therefore, PEG on hold until family discussion held. Multiple attempts to reach family members unsuccessful. (3) Right lower lobe pneumonia Code(s): J18.1 - LOBAR PNEUMONIA, UNSPECIFIED ORGANISM Status: Acute Qualifiers: Pneumonia type: aspiration pneumonia Aspiration pneumonia type: due to regurgitated food Qualified Code(s): J69.0 - Pneumonitis due to inhalation of food and vomit Comment: Stable. Doing well on room air. Cultures negative to date. (4) UTI (urinary tract infection) Status: Resolved Qualifiers: Urinary tract infection type: acute cystitis Hematuria presence: without hematuria Qualified Code(s): N30.00 - Acute cystitis without hematuria Comment: Culture grew Proteus and E. Coli, sensitive to cefepime- now on Omnicef. (5) Anemia in chronic kidney disease (CKD) Code(s): N18.9 - CHRONIC KIDNEY DISEASE, UNSPECIFIED; D63.1 - ANEMIA IN CHRONIC KIDNEY DISEASE Status: Chronic Qualifiers: Chronic kidney disease stage: stage 3 (moderate) Qualified Code(s): N18.3 - Chronic kidney disease, stage 3 (moderate); D63.1 - Anemia in chronic kidney disease; D63.1 - Anemia in chronic kidney disease Comment: Hemoglobin stable. Monitor. (6) Septic shock Code(s): A41.9 - SEPSIS, UNSPECIFIED ORGANISM; R65.21 - SEVERE SEPSIS WITH SEPTIC SHOCK Status: Resolved Comment: Resolved. BP stable. (7) Acute respiratory failure with hypoxia Code(s): J96.01 - ACUTE RESPIRATORY FAILURE WITH HYPOXIA Status: Resolved Comment: Extubated. (8) Acute on chronic renal failure Code(s): N17.9 - ACUTE KIDNEY FAILURE, UNSPECIFIED; N18.9 - CHRONIC KIDNEY DISEASE, UNSPECIFIED Status: Resolved Qualifiers: Chronic kidney disease stage: stage 3 (moderate) Comment: Resolved with hydration. Likely 2/2 hypoperfusion from septic shock. (9) Type [address] elevation Code(s): I21.A1 - MYOCARDIAL INFARCTION TYPE 2 Status: Resolved Comment: 2/ 2 demand ischemia from sepsis. Monitor. (10) History of CVA (cerebrovascular accident) Code(s): Z86.73 - PRSNL HX OF TIA (TIA), AND CEREB INFRC W/O RESID DEFICITS Status: Chronic (11) Seizure disorder Code(s): G40.909 - EPILEPSY, UNSP, NOT INTRACTABLE, WITHOUT STATUS EPILEPTICUS Status: Chronic Comment: Continue home medications. (12) Developmental delay, severe Code(s): R62.50 - UNSP LACK OF EXPECTED NORMAL PHYSIOL DEV IN CHILDHOOD Status : Acute - Plan * . Review of Systems - Medications/Allergies Allergies/Adverse Reactions: Allergies Allergy/AdvReac Type Severity Reaction Status Date / Time nitrofurantoin Allergy Verified 12/11/17 00:12 [From Macrobid] Sulfa (Sulfonamide Allergy Verified 12/11/17 00:12 Antibiotics) sulfamethoxazole Allergy Verified 12/11/17 00:12 [From Bactrim] tramadol Allergy Verified 12/11/17 00:12 trimethoprim [From Bactrim] Allergy Verified 12/11/17 00:12 Medications: Current Medications Albuterol Sulfate (Ventolin) 2.5 mg NEB [id number] [facility] Last Admin: 12/18/17 11:28 Dose: 2.5 mg Lipase/Protease/Amylase ([place] Smalls [id number]) 1 cap FS .PER PROTOCOL PRN PRN Reason: TUBE OCCLUSION PROTOCOL Aspirin (Aspirin) 325 mg PER TUBE DAILY [facility] Last Admin: 12/18/17 08:18 Dose: 325 mg Cefdinir (Omnicef) 300 mg PO BID [facility] Last Admin: 12/18/17 08:18 Dose: 300 mg Dextrose/Water (Dextrose 50%) 25 gm IVP PRN PRN PRN Reason: HYPOGLYCEMIA PROTOCOL Divalproex Sodium (Depakote Sprinkle) 500 mg PO 0900,1300 [facility] Last Admin: 12/18/17 08:18 Dose: 500 mg Divalproex Sodium (Depakote Sprinkle) 250 mg PO HS [facility] Last Admin: 12/17/17 22:02 Dose: 250 mg Enoxaparin Sodium (Lovenox) 30 mg SC 0900 [facility] Last Admin: 12/18/17 08:18 Dose: 30 mg Famotidine (Pepcid) 20 mg PER TUBE 0900 [facility] Last Admin: 12/18/17 08:18 Dose: 20 mg Glucagon (Glucagon) 1 mg IM PRN PRN PRN Reason: HYPOGLYCEMIA PROTOCOL Dextrose/Water (D5w) 1,000 mls @ 0 mls/hr IV INF PRN; As Directed PRN Reason: HYPOGLYCEMIA PROTOCOL Insulin Detemir 10 units/ (Miscellaneous Medication) 0.1 mls @ 0 mls/hr SC 1000 ,2200 [facility] PRN Reason: As Directed Insulin Human Regular (Humulin R) 0 units SC .MILD SLIDING PRN; Protocol PRN Reason: MILD SLIDING SCALE Last Admin: 12/17/17 17:17 Dose: 2 units Ondansetron HCl (Zofran) 4 mg IVP Q6H PRN PRN Reason: Nausea/Vomiting Phenobarbital (Phenobarbital) 97.2 mg PO DAILY [facility] Last Admin: 12/18/17 08:18 Dose: 97.2 mg Sodium Bicarbonate (Bicarbonate, Sodium) 650 mg PER TUBE .PER PROTOCOL PRN PRN Reason: ENTERAL TUBE OCCLUSION
[2017-12-18] MEDS: Insulin Regular 300 UNITS/3 ML VIAL SC PRN (12:36)
[2017-12-18] MEDS: Insulin Detemir 100 UNITS/ML 10 UNITS in Pre-Filled Syringe 1 EACH SC SCH (22:13)
[2017-12-19] MEDS: Albuterol Sulfate 2.5 mg/3 ml Neb NEB SCH ×2 (07:23→13:35)
[2017-12-19] MEDS: Famotidine 20 MG TAB PER TUBE SCH (09:12)
[2017-12-19] MEDS: Aspirin 325 MG TAB PER TUBE SCH (09:12)
[2017-12-19] MEDS: Cefdinir 300 MG CAP PO SCH (09:12)
[2017-12-19] MEDS: Divalproex Sodium 125 mg Sprinkle Capsule PO SCH ×2 (09:12→13:41)
[2017-12-19] MEDS: Enoxaparin Sodium 30 MG/0.3 ML SYRINGE SC SCH (09:14)
[2017-12-19] MEDS: PHENobarbital 32.4 MG TAB PO SCH (10:00)
[2017-12-19] MEDS: Insulin Detemir 100 UNITS/ML 10 UNITS in Pre-Filled Syringe 1 EACH SC SCH (10:02)
--- NOTE | 2017-12-19 11:10 | PDOC.PN ---
- Subjective Encounter Start Date: 12/19/17 Encounter Start Time: 11:16 Subjective: No acute events overnight. - Objective Resuscitation Status: Resuscitation Status FULL:Full Resuscitation MAR Reviewed: Yes Vital Signs & Weight: Vital Signs (12 hours) Temp Pulse Resp BP Pulse Ox 12/19/17 08:00 98.2 F 93 16 93 L 12/19/17 07:45 98.2 F 93 16 141/84 H 93 L 12/19/17 07:24 97 12/19/17 07:23 93 20 97 Weight Admit Weight 132 lb 4.438 oz Weight 132 lb 4.438 oz Most Recent Monitor Data Heart Rate from ECG 90 NIBP 137/74 NIBP BP-Mean 111 Respiration from ECG 27 SpO2 96 I&O: 12/18/17 12/19/17 12/20/17 06:59 06:59 06:59 Intake Total 80 160 40 Output Total 250 650 650 Balance -170 -490 -610 Result Diagrams: 12/18/17 07:59 12/18/17 07:59 Additional Labs: Accuchecks 12/19/17 12/19/17 12/18/17 04:09 00:08 20:51 POC Glucose 243 H 176 H 154 H 12/18/17 12/18/17 16:43 10:59 POC Glucose 111 H 241 H Phys Exam - Physical Examination Constitutional: NAD HEENT: PERRLA, moist MMs, sclera anicteric Neck: no JVD, supple, full ROM Respiratory: no wheezing, no rales, no rhonchi, clear to auscultation bilateral Cardiovascular: RRR, no significant murmur, no rub Gastrointestinal: soft, non-tender, no distention, positive bowel sounds Neurological: non-focal Unable to cooperate w exam Skin: no rash, normal turgor Dx/Plan (1) T2DM (type 2 diabetes mellitus) Status: Chronic Qualifiers: Diabetes mellitus group home insulin use: with watermaster use Diabetes mellitus complication detail: with chronic kidney disease Chronic kidney disease stage: stage 3 (moderate) Comment: Achieving fair control. Continue long acting insulin, SSI, hypoglycemia protocol and tube feeds. HbA1c 5.3%. Finger stick glucose checks Q6H. (2) Dysphagia Code(s): R13.10 - DYSPHAGIA, UNSPECIFIED Status: Acute Qualifiers: Dysphagia type: oropharyngeal phase Qualified Code(s): R13.12 - Dysphagia, oropharyngeal phase Comment: High risk for aspiration. Palliative care spoke to family and PCP, Dr Orr- family undecided about PEG placement. Therefore, PEG on hold until family discussion held. Multiple attempts to reach family members unsuccessful. (3) Right lower lobe pneumonia Code(s): J18.1 - LOBAR PNEUMONIA, UNSPECIFIED ORGANISM Status: Acute Qualifiers: Pneumonia type: aspiration pneumonia Aspiration pneumonia type: due to regurgitated food Qualified Code(s): J69.0 - Pneumonitis due to inhalation of food and vomit Comment: Resolved. Doing well on room air. Blood Cultures negative. On PO Omnicef. (4) UTI (urinary tract infection) Status: Resolved Qualifiers: Urinary tract infection type: acute cystitis Hematuria presence: without hematuria Qualified Code(s): N30.00 - Acute cystitis without hematuria Comment: Culture grew Proteus and E. Coli, sensitive to cefepime- now on Omnicef. (5) Anemia in chronic kidney disease (CKD) Code(s): N18.9 - CHRONIC KIDNEY DISEASE, UNSPECIFIED; D63.1 - ANEMIA IN CHRONIC KIDNEY DISEASE Status: Chronic Qualifiers: Chronic kidney disease stage: stage 3 (moderate) Qualified Code(s): N18.3 - Chronic kidney disease, stage 3 (moderate); D63.1 - Anemia in chronic kidney disease; D63.1 - Anemia in chronic kidney disease Comment: Hemoglobin stable. Monitor. (6) Septic shock Code(s): A41.9 - SEPSIS, UNSPECIFIED ORGANISM; R65.21 - SEVERE SEPSIS WITH SEPTIC SHOCK Status: Resolved Comment: Resolved. BP stable. (7) History of CVA (cerebrovascular accident) Code(s): Z86.73 - PRSNL HX OF TIA (TIA), AND CEREB INFRC W/O RESID DEFICITS Status: Chronic (8) Seizure disorder Code(s): G40.909 - EPILEPSY, UNSP, NOT INTRACTABLE, WITHOUT STATUS EPILEPTICUS Status: Chronic Comment: Continue home medications. (9) Developmental delay, severe Code(s): R62.50 - UNSP LACK OF EXPECTED NORMAL PHYSIOL DEV IN CHILDHOOD Status : Acute (10) Type [address] elevation Code(s): I21.A1 - MYOCARDIAL INFARCTION TYPE 2 Status: Resolved Comment: 2/ 2 demand ischemia from sepsis. Monitor. (11) Acute on chronic renal failure Code(s): N17.9 - ACUTE KIDNEY FAILURE, UNSPECIFIED; N18.9 - CHRONIC KIDNEY DISEASE, UNSPECIFIED Status: Resolved Qualifiers: Chronic kidney disease stage: stage 3 (moderate) Comment: Resolved with hydration. Likely 2/2 hypoperfusion from septic shock. (12) Acute respiratory failure with hypoxia Code(s): J96.01 - ACUTE RESPIRATORY FAILURE WITH HYPOXIA Status: Resolved Comment: Extubated. - Plan * . Review of Systems - Medications/Allergies Allergies/Adverse Reactions: Allergies Allergy/AdvReac Type Severity Reaction Status Date / Time nitrofurantoin Allergy Verified 12/11/17 00:12 [From Macrobid] Sulfa (Sulfonamide Allergy Verified 12/11/17 00:12 Antibiotics) sulfamethoxazole Allergy Verified 12/11/17 00:12 [From Bactrim] tramadol Allergy Verified 12/11/17 00:12 trimethoprim [From Bactrim] Allergy Verified 12/11/17 00:12 Medications: Current Medications Albuterol Sulfate (Ventolin) 2.5 mg NEB [id number] [facility] Last Admin: 12/19/17 07:23 Dose: 2.5 mg Lipase/Protease/Amylase ([place] Smalls [id number]) 1 cap FS .PER PROTOCOL PRN PRN Reason: TUBE OCCLUSION PROTOCOL Aspirin (Aspirin) 325 mg PER TUBE DAILY [facility] Last Admin: 12/19/17 09:12 Dose: 325 mg Cefdinir (Omnicef) 300 mg PO BID [facility] Last Admin: 12/19/17 09:12 Dose: 300 mg Dextrose/Water (Dextrose 50%) 25 gm IVP PRN PRN PRN Reason: HYPOGLYCEMIA PROTOCOL Divalproex Sodium (Depakote Sprinkle) 500 mg PO 0900,1300 [facility] Last Admin: 12/19/17 09:12 Dose: 500 mg Divalproex Sodium (Depakote Sprinkle) 250 mg PO HS [facility] Last Admin: 12/18/17 21:55 Dose: 250 mg Enoxaparin Sodium (Lovenox) 30 mg SC 0900 [facility] Last Admin: 12/19/17 09:14 Dose: 30 mg Famotidine (Pepcid) 20 mg PER TUBE 0900 [facility] Last Admin: 12/19/17 09:12 Dose: 20 mg Glucagon (Glucagon) 1 mg IM PRN PRN PRN Reason: HYPOGLYCEMIA PROTOCOL Dextrose/Water (D5w) 1,000 mls @ 0 mls/hr IV INF PRN; As Directed PRN Reason: HYPOGLYCEMIA PROTOCOL Insulin Detemir 10 units/ (Miscellaneous Medication) 0.1 mls @ 0 mls/hr SC 1000 ,2200 [facility] PRN Reason: As Directed Last Admin: 12/19/17 10:02 Dose: 0.1 mls Insulin Human Regular (Humulin R) 0 units SC .MILD SLIDING PRN; Protocol PRN Reason: MILD SLIDING SCALE Last Admin: 12/18/17 12:36 Dose: 3 units Ondansetron HCl (Zofran) 4 mg IVP Q6H PRN PRN Reason: Nausea/Vomiting Phenobarbital (Phenobarbital) 97.2 mg PO DAILY [facility] Last Admin: 12/19/17 10:00 Dose: 97.2 mg Sodium Bicarbonate (Bicarbonate, Sodium) 650 mg PER TUBE .PER PROTOCOL PRN PRN Reason: ENTERAL TUBE OCCLUSION
[2017-12-19] MEDS: Insulin Regular 300 UNITS/3 ML VIAL SC PRN (12:02)
[2017-12-19 18:25] VITALS: BP 96/60; TEMP 99.8
--- NOTE | 2017-12-20 10:47 | DIS ---
DATE OF ADMISSION: 12/10/2017 DATE OF DISCHARGE: 12/19/2017 DISCHARGE DIAGNOSES: Septic shock, right lower lobe pneumonia, urinary tract infection, hypokalemia, [id number] myocardial infarction, type 2 diabetes mellitus, acute on chronic kidney disease, a cute hypoxic respiratory failure, anemia of chronic disease, history of previous strokes, history of seizure disorder, developmental delay. HISTORY OF PRESENT ILLNESS/HOSPITAL COURSE: Ms. Maggie Willis is a 72-year-old female, who resides in a [facility] and was brought to the emergency room due to a sudden drop in her blood pressure to the 50s/30s and hypoxia. She was noted to have urosepsis and the [facility] called EMS. When EMS arrived, the patient was hypoxic with saturations to 50%. She was then intubated in the field and s tarted on IV fluids en route to [facility]. When she got to the emergency room, she had rec eived about 4 liters of fluid with blood pressure improving to 95/57 with heart rate of 107. She was immediately started on Levophed with improvement in her blood pressure. Urinalysis was abnormal. A chest x-ray also was suspicious for right lower lobe pneumonia, but no other source of infection was detected. Due to the non-availability of family members present, she was made FULL CODE and admitte d to the hospital where she received IV fluids, broad-spectrum antibiotics with subsequent improvemen t in her mental status and vital signs. She was eventually extubated and placed on nasal cannula oxy gen and eventually transitioned to room air. Her medical conditions managed. She was found to have dysphagia and failed speech language pathology evaluation. She was, therefore, made n.p.o. Multiple attempts were made to reach her family for several days regarding the possibility of the PEG tube pl acement in conjunction with her primary care physician, Dr. Jewell. Eventually, the family was r eached and they decided to not go ahead with a PEG tube placement and the patient was admitted to [facility]. Her pneumonia was completely treated and the patient remained asymptomatic and her mental stat us seemed to improve back to her baseline. She was able to answer simple questions. DISCHARGE MEDICATIONS: Trazodone 50 mg at bedtime, docusate 100 mg daily, Depakote 500 mg orally twi ce a day, phenobarbital 97.2 mg daily, multivitamin 1 tablet daily, lisinopril 25 mg daily, fenofibra te 145 mg daily, aspirin 81 mg daily, buspirone 5 mg 3 times a day, insulin glargine 5 units daily, i nsulin aspart as needed. PHYSICAL EXAMINATION: CONSTITUTIONAL/VITAL SIGNS: At discharge, temperature 98.2 degrees Fahrenheit, pulse 90, respiratory rate 16, oxygen saturation 93% on room air, blood pressure 141/81. GENERAL: Not in acute distress. HEENT: PERRLA. Moist mucous membranes, not pale, anicteric. NECK: No JVD, supple. RESPIRATORY: No wheezes, rales, or rhonchi. Clear breath sounds. CARDIOVASCULAR: Regular rate and rhythm. No murmurs, rubs, or gallops. S1, S2 only. GASTROINTESTINAL: Soft, nontender, nondistended, positive bowel sounds. NEUROLOGICAL: Nonfocal. She is unable to cooperate with exam. SKIN: No rash. Normal turgor. MUSCULOSKELETAL: No edema. LABORATORY DATA: WBC 10.2, hemoglobin 8.4, platelet count 456. Chemistry: Sodium 134, potassium 4. 7, chloride 99, carbon dioxide 29, anion gap 11, BUN 21, creatinine 0.8, glucose 251, calcium 8.6. IMAGING: Brain CT showed stable volume loss, no intracranial hemorrhage. Abdomen x-ray: Nasogastri c tube in satisfactory location, large stable ossification within the spleen, scattered gas in essent ially nondilated small bowel, nonspecific. Chest x-ray, last done on 12/18/2017, showed persistent b ilateral airspace disease, which may reflect pneumonia or edema. CONSULTATIONS: Pulmonology CONDITION AT DISCHARGE: Stable and improved. PROCEDURES: None. DIET: Diabetic. The patient is about to eat as she wants with the risk of aspiration accepted. CARE GOALS: The patient discharged to hospice. ACTIVITY: As tolerated. Discharge time 65 minutes including chart review and documentation.
== END 2017-12-19 18:00 | disposition hospice, inpatient (51) | DRG 871 ==
LOC: ERS 19:38 → CCU 21:53 → T4-A 12-13 17:39
PROVIDERS: ADMIT Family Medicine; ATTEND Family Medicine
PROC: 5A1945Z Respiratory Ventilation, 24-96 Consecutive Hours (ICD-10-PCS; principal; 2017-12-10)
PROC: 02HV33Z Insertion of Infusion Device into Superior Vena Cava, Percutaneous Approach (ICD-10-PCS; 2017-12-10)
DX: A41.9 Sepsis, unspecified organism (principal); R65.21 Severe sepsis with septic shock; J96.01 Acute respiratory failure with hypoxia; I21.A1 Myocardial infarction type 2; G93.41 Metabolic encephalopathy; J18.9 Pneumonia, unspecified organism; N17.9 Acute kidney failure, unspecified; N18.3 Chronic kidney disease, stage 3 (moderate); E87.2 Acidosis; N30.00 Acute cystitis without hematuria; R13.12 Dysphagia, oropharyngeal phase; E11.22 Type 2 diabetes mellitus with diabetic chronic kidney disease; E87.6 Hypokalemia; G40.909 Epilepsy, unspecified, not intractable, without status epilepticus; R62.50 Unspecified lack of expected normal physiological development in childhood; F32.9 Major depressive disorder, single episode, unspecified; F71 Moderate intellectual disabilities; E78.5 Hyperlipidemia, unspecified; Z51.5 Encounter for palliative care; D63.1 Anemia in chronic kidney disease; Z86.73 Personal history of transient ischemic attack (TIA), and cerebral infarction without residual deficits; Z79.4 Long term (current) use of insulin; I10 Essential (primary) hypertension; M24.50 Contracture, unspecified joint
CPT/HCPCS: 36415; 36416; 36556; 70450; 71045; 74018; 80048; 80053; 80306; 81015; 82140; 82533; 82805; 83036; 83605; 84443; 84484; 85025; 85027; 85060; 86140; 87077; 87086; 87186; 87804; 90471; 90670; 90682; 93005; 93306; 94002; 94003; 94640; 96365; 96366; 96368; 96375; G0008; G0009; G8996-GN-CM; G8997-GN-CL; J0692; J1650; J1720; J1815; J1956; J2543; J3370; J3411; J3480; J7050; J7611; J7620; P9045; Q2036; S0028

== ENCOUNTER 2018-01-21 09:38 | Inpatient (IN) | payer MEDICARE, MEDICAID ==
[2018-01-21] MEDS ORDERED: Sodium Chloride 0.9% 100 ML ONE (10:29)
[2018-01-21] MEDS ORDERED: cefTRIAXone\\ROCEPHIN 2 GM VIAL ONE (10:29)
[2018-01-21 10:44] LABS: #Eosinphils 0.3 thou/uL (0.0-0.7); #Lymphocytes 0.8 thou/uL (1.20-3.40); #Monocytes 0.1 thou/uL (0.11-0.59); #Neutrophils 7.3 thou/uL (1.40-6.50); %Basophils 0.2 % (0.0-1.0); %Eosinophils 3.7 % (0.0-10.0); %Lymphocytes 9.8 % (21.0-51.0); %Monocytes 0.5 % (0.0-10.0); %Neutrophils 85.8 % (42.0-75.0); Hemoglobin 10.2 g/dL (12.0-16.0); Mean Corpuscular HGB CONC 32.8 g/dL (32.0-36.0); Mean Corpuscular Hemoglobin 27.5 pg (27.0-31.0); Mean Corpuscular Volume 83.8 fl (81.0-99.0); Mean Platelet Volume 6.4 fL (7.4-10.4); Platelet Count 425 thou/uL (130-400); RBC Distribution Width 14.6 % (11.5-14.5); Red Blood Cell (RBC) Count 3.71 mill/uL (4.20-5.40); White Blood Cell (WBC) Count 8.5 thou/uL (4.8-10.8)
[2018-01-21 10:56] LABS: Lactic Acid 1.8 mmol/L (0.5-2.2)
[2018-01-21] MEDS ORDERED: Prevnar 13-Val Conj/PF 0.5 ML SYRINGE IM ONE (15:00)
[2018-01-21] MEDS ORDERED: Acetaminophen 325 MG TAB PO PRN (16:18)
[2018-01-21] MEDS ORDERED: Dextrose 50% Abboject 50 ML SYRINGE SLOW IVP PRN (16:18)
[2018-01-21] MEDS ORDERED: Dextrose 5% in Water 1,000 ML IV PRN (16:18)
[2018-01-21] MEDS ORDERED: HumaLOG 300 UNITS/3 ML VIAL SC PRN (16:18)
[2018-01-21] MEDS ORDERED: Enoxaparin Sodium 30 MG/0.3 ML SYRINGE SC SCH (16:30)
[2018-01-21] MEDS: Sodium Chloride 0.9% 1,000 ML IV SCH (16:44)
[2018-01-21] MEDS: Cefepime 1 GM, Admixture Fee 1 EACH in Sodium Chloride 0.9% 10 ML SLOW IVP SCH (20:44)
[2018-01-21] MEDS: Famotidine 40 MG/4 ML VIAL SLOW IVP SCH (20:44)
[2018-01-21] MEDS: Divalproex Sodium 125 mg Sprinkle Capsule PO SCH ×2 (20:56→21:02)
[2018-01-21] MEDS: busPIRone HCl 5 MG TAB PO SCH ×2 (20:57→21:01)
[2018-01-21] MEDS ORDERED: Cefepime 1 GM in Sodium Chloride 0.9% 100 ML IVPB SCH (21:00)
[2018-01-22] MEDS: Sodium Chloride 0.9% 1,000 ML IV SCH ×3 (02:31→20:27)
[2018-01-22 05:22] LABS: Hemoglobin 5.8 g/dL (12.0-16.0); Mean Corpuscular HGB CONC 33.4 g/dL (32.0-36.0); Mean Corpuscular Hemoglobin 27.9 pg (27.0-31.0); Mean Corpuscular Volume 83.3 fl (81.0-99.0); Mean Platelet Volume 5.9 fL (7.4-10.4); Platelet Count 404 thou/uL (130-400); RBC Distribution Width 14.7 % (11.5-14.5); Red Blood Cell (RBC) Count 2.09 mill/uL (4.20-5.40); White Blood Cell (WBC) Count 7.2 thou/uL (4.8-10.8)
[2018-01-22 05:28] LABS: Anion Gap 4 mmol/L (10-20); BUN (Urea Nitrogen) 40 mg/dL (9.8-20.1); Calc. Creatinine Clearance 56 mL/min (70-130); Calcium 7.7 mg/dL (7.8-10.44); Carbon Dioxide 27 mmol/L (23-31); Chloride 114 mmol/L (98-107); Estimated GFR-MDRD 76; Glucose 171 mg/dL (83-110); Magnesium 1.7 mg/dL (1.6-2.6); Potassium 4.1 mmol/L (3.5-5.1); Sodium 141 mmol/L (136-145)
[2018-01-22 05:41] LABS: #Eosinphils 0.1 thou/uL (0.0-0.7); #Lymphocytes 2.5 thou/uL (1.20-3.40); #Monocytes 0.7 thou/uL (0.11-0.59); #Neutrophils 3.9 thou/uL (1.40-6.50); %Basophils 0.4 % (0.0-1.0); %Eosinophils 1.8 % (0.0-10.0); %Monocytes 9.1 % (0.0-10.0); %Neutrophils 53.7 % (42.0-75.0); Band 7 % (5-11); Lymphocytes 30 % (21-51); MDiff Complete? YES; Monocytes 6 % (0-10); Neutrophil 57 % (42-75)
[2018-01-22 07:03] LABS: Hemoglobin 5.9 g/dL (12.0-16.0)
[2018-01-22 07:13] LABS: #Basophils 0.1 thou/uL (0.0-0.2); #Eosinphils 0.1 thou/uL (0.0-0.7); #Lymphocytes 2.4 thou/uL (1.20-3.40); #Monocytes 0.5 thou/uL (0.11-0.59); #Neutrophils 3.8 thou/uL (1.40-6.50); %Basophils 0.8 % (0.0-1.0); %Eosinophils 1.6 % (0.0-10.0); %Lymphocytes 34.3 % (21.0-51.0); %Monocytes 7.6 % (0.0-10.0); %Neutrophils 55.7 % (42.0-75.0); Mean Corpuscular HGB CONC 33.4 g/dL (32.0-36.0); Mean Platelet Volume 5.9 fL (7.4-10.4); Platelet Count 407 thou/uL (130-400); RBC Distribution Width 15.1 % (11.5-14.5); Red Blood Cell (RBC) Count 2.11 mill/uL (4.20-5.40); White Blood Cell (WBC) Count 6.9 thou/uL (4.8-10.8)
[2018-01-22] MEDS: busPIRone HCl 5 MG TAB PO SCH ×3 (08:06→20:29)
[2018-01-22] MEDS: Divalproex Sodium 125 mg Sprinkle Capsule PO SCH ×3 (08:06→20:29)
[2018-01-22] MEDS: Docusate 100 MG CAP PO SCH (08:06)
[2018-01-22] MEDS: PHENobarbital 32.4 MG TAB PO SCH (08:07)
[2018-01-22] MEDS ORDERED: Aspirin 81 mg Enteric Coated Tablet PO SCH (09:00)
[2018-01-22] MEDS: Cefepime 1 GM, Admixture Fee 1 EACH in Sodium Chloride 0.9% 10 ML SLOW IVP SCH ×2 (09:47→20:28)
[2018-01-22] MEDS: Famotidine 40 MG/4 ML VIAL SLOW IVP SCH (09:48)
[2018-01-22] MEDS: Pantoprazole 80 MG in Sodium Chloride 0.9% 100 ML IVPB SCH ×2 (12:15→20:27)
--- NOTE | 2018-01-22 14:13 | PDOC.PN ---
- Subjective Encounter Start Date: 01/22/18 Encounter Start Time: 10:40 Pt more awake, agitated, removes leads. Pt had hard BM on admit, today first thing and then again 2 hours later to large dark red bloody BMs. H/H this AM down form 10 to 6 again, 2 units ordered , GI consult requested,. Dr Lyons to do a rpid prep and colonoscopy today, will trnafuse and keep 2 units ahead crossmatched. No fevers, MS slightly better. fmaily contacted regarding blood consent, but have bene unable to reach regarding endoscopy. - Objective Resuscitation Status: Resuscitation Status FULL:Full Resuscitation MAR Reviewed: Yes Vital Signs & Weight: Vital Signs (12 hours) Temp Pulse Pulse Resp BP BP Pulse Ox 01/22/18 12:58 98.9 F 94 16 136/71 01/22/18 12:47 98.7 F 96 16 136/71 97 01/22/18 10:31 98.9 F 103 H 19 112/65 97 01/22/18 10:16 99 F 94 16 116/59 L 97 01/22/18 08:41 98.9 F 103 H 19 112/65 97 01/22/18 07:33 98.4 F 98 16 98 01/22/18 07:00 98.4 F 98 20 114/56 L 96 Weight Weight 116 lb 3.2 oz I&O: 01/21/18 01/22/18 01/23/18 06:59 06:59 06:59 Intake Total 1400 350 Output Total 1950 Balance -550 350 Result Diagrams: 01/22/18 06:42 01/22/18 04:47 Additional Labs: Accuchecks 01/22/18 01/21/18 01/21/18 10:49 20:58 16:45 POC Glucose 147 H 194 H 213 H EKG Reviewed by me: Yes Phys Exam - Physical Examination Constitutional: NAD HEENT: PERRLA, moist MMs, sclera anicteric, oral pharynx no lesions teeth in poor repair Neck: no nodes, no JVD, supple, full ROM Respiratory: no wheezing, no rales, no rhonchi, clear to auscultation bilateral Cardiovascular: RRR, no significant murmur, no rub Gastrointestinal: soft, non-tender, no distention, positive bowel sounds Musculoskeletal: no edema, pulses present Neurological: moves all 4 limbs Lymphatic: no nodes Deviation from normal: mentally handicapped, does not follow commands, does not answer questions Skin: no rash, normal turgor, cap refill <2 seconds Deviation from normal: pale Dx/Plan - Plan cont current plan of care, continue antibiotics, social media intern, DVT proph w/ SCDs * . follow up on GI findings
--- NOTE | 2018-01-22 14:44 | RAD ---
KUB: Date: 01-22-18 Provided Clinical History: Abdominal pain. FINDINGS: Comparison 12-11-17. The abdominal bowel gas pattern is nonspecific. Coarse calcification of the left upper quadrant is ag ain noted. Enteric catheter is seen, the tip of which projects in the left upper quadrant. IMPRESSION: As above. POS: MICHAEL
[2018-01-22] MEDS ORDERED: Succinylcholine Chloride 20 MG/ML 10 ml SYRINGE FS ONE (16:53)
[2018-01-22] MEDS ORDERED: Lidocaine 1% PF 5 ML VIAL ONE (16:53)
[2018-01-22] MEDS ORDERED: PROPOFOL 200 MG/20 ML VIAL ONE (16:53)
[2018-01-22] MEDS ORDERED: PHENYLEPHRINE-NS 100 MCG/ML 10 ML SYRINGE ONE (16:53)
[2018-01-22 17:04] LABS: Hemoglobin 11.9 g/dL (12.0-16.0)
[2018-01-22] MEDS ORDERED: Midazolam HCl 2 mg/2 ml Vial ONE (17:43)
[2018-01-22] MEDS ORDERED: Fentanyl 100 MCG/2 ML VIAL ONE (17:43)
[2018-01-22] MEDS ORDERED: GoLYTELY 4,000 ml Bottle PO SCH (18:00)
[2018-01-22] MEDS ORDERED: Promethazine HCl 25 MG/ML VIAL ONE (19:29)
--- NOTE | 2018-01-22 19:40 | OP ---
DATE OF PROCEDURE: 01/22/2018 PROCEDURE: Esophagogastroduodenoscopy with control of hemorrhage, colonoscopy (diagnostic). INDICATION FOR PROCEDURE: Hematochezia or anemia. DESCRIPTION OF PROCEDURE: After the risks and benefits were explained to the patient's surrogate inc luding risks of bleeding, infection, perforation, reactions to anesthesia and/or pain, informed conse nt was obtained. The patient was then taken to the endoscopy suite where general anesthesia was admi nistered via anesthesia support with endotracheal tube intubation. After adequate sedation was achie nino and patient was on mechanical ventilation, the standard gastroscope was then introduced into the mouth with intubation of the esophagus, stomach and proximal small intestine with the findings listed below. After completion of this particular portion of the procedure, the bed was rotated 180 degree s in preparation for colonoscopy. After external rectal examination, the standard colonoscope was in troduced into the rectum and advanced to the terminal ileum with careful examination of the mucosa up on withdrawal. The quality of the prep was excellent. The patient tolerated the procedure well with no immediate perioperative complications. EGD FINDINGS: Normal appearing mucosa was seen in the proximal, mid and distal esophagus. There was no evidence of erosions, ulcerations, mass lesions or active/recent bleeding. STOMACH: Normal appearing mucosa was seen in the gastric cardia, body, and incisura. A 2-3 mm red s pot was seen in the gastric fundus consistent with NG tube suction site; however, two ulcerations wer e seen in the gastric antrum measuring approximately 2-3 mm and 4-5 mm in diameter. The larger ulcer ation was clean based, but did have a red spot in the center of it with a possible visible vessel. G iven the high likelihood of this being a sign of GI bleeding, this ulceration was intervened upon wit h bipolar cautery with good hemostasis achieved afterwards. No bleeding was noted during this portio n of the examination. No further erosions, mass, lesions or active/recent bleeding was seen during t his portion of the examination. DUODENUM: Normal appearing mucosa was seen in both the duodenal bulb and second portion of the duode num. There was no evidence of erosions, ulcerations, mass lesions or active/recent bleeding. IMPRESSION: 1. Two ulcerations are seen in the gastric antrum with the larger being clean based, but with a visi ble vessel in the center of it intervened upon with bipolar cautery with good hemostasis achieved (th is is the most likely source of patient's recent gastrointestinal bleed: 2. Otherwise normal upper endoscopy. COLONOSCOPY FINDINGS: DIGITAL RECTAL EXAMINATION: External examination was normal. COLON FINDINGS: Normal appearing mucosa was seen in the terminal ileum and within the cecum and the appendiceal orifice. Normal appearing mucosa was also seen in the ascending, transverse, descending, sigmoid colon, and rectum. There was no evidence of erosions, ulcerations, mass, lesions or active/ recent bleeding seen within the colon except for a small amount of dark black-colored stool within th e rectum. There were no abnormalities seen on rectal retroflexion. IMPRESSION: Normal colonoscopy with no blood seen within the terminal ileum. RECOMMENDATIONS: 1. Would continue to trend hemoglobin and hematocrit and transfuse as necessary to maintain hemoglob in and hematocrit of 7/21. 2. Continue to monitor clinically for signs of active gastrointestinal bleeding. 3. Would continue the patient in Intermediate Care Unit for closer monitoring given active recent bl eeding. 4. Would keep patient on PPI drip for the next 24 hours, then transfer patient to PPI 40 mg twice da samson. 5. Patient will need to be monitored for at least the next 48 hours given increased risk of rebleedi ng during this time. 6. We would also place the patient on clear liquid diet. 7. Would avoid any NSAIDs.
--- NOTE | 2018-01-22 19:52 | RAD ---
ABDOMEN ONE VIEW: FINDINGS/IMPRESSION: Comparison is made with exam of 11:17 a.m. from the same date. The tip of the nasogastric tube is in the gastric fundus. Calcification in the left upper quadrant is again seen. The bowel gas pattern is unremarkable. POS: IGNACIO
[2018-01-22 20:13] LABS: Hemoglobin 12.4 g/dL (12.0-16.0); Platelet Count 356 thou/uL (130-400)
--- NOTE | 2018-01-22 22:52 | CON ---
DATE OF CONSULTATION: 01/22/2018 REASON FOR CONSULTATION: Hematochezia. CONSULTING PHYSICIAN: Dr. Levi King. HISTORY OF PRESENT ILLNESS: The patient is a 72-year-old female with past medical history of anemia of chronic kidney disease; chronic kidney disease, stage 3; cerebrovascular accident; diabetes; seizu res; anxiety; depression; and severe intellectual/developmental delay; presenting with complaints of hematochezia. The patient was noted to have decreased blood pressure and change in mental status per family and brought to the ER at an outside institution. Routine labs at that institution noted that she had a significant anemia and was transferred to [facility] for evaluation. Prior to tr elisabet, she was infused with approximately 2 units of PRBCs. Upon arriving at [facility], s he was noted to have mild hypotension and mild tachycardia that resolved during the initial hours. R epeat H&H revealed that her anemia had much improved when compared to the previous reported hemoglobi n and hematocrit from the outside ER. However, this morning, she had the occurrence of 2 large gross ly bloody bowel movements that were reflected in a significant drop in her hemoglobin and hematocrit. This was coupled with mild tachycardia, but no changes in blood pressure. After confirmation that the current hemoglobin and hematocrit were not part of lab error, she was transfused with approximate ly 2 additional units of PRBCs and consultation of GI for evaluation. Upon conversing with the patient, she has limited responses and understanding of her current clinical status. No meaningful answers regarding her clinical history were obtained. REVIEW OF SYSTEMS: Could not obtain a review of systems due to patient's severe intellectual disabil ity. PAST MEDICAL HISTORY: As per HPI. PAST SURGICAL HISTORY: Unknown. FAMILY HISTORY: Unknown. SOCIAL HISTORY: No evidence of tobacco, alcohol or illicit drug use in the chart. OUTPATIENT MEDICATIONS: Reviewed. ALLERGIES: NITROFURANTOIN, SULFA, SULFAMETHOXAZOLE, TRAMADOL, and TRIMETHOPRIM. PHYSICAL EXAMINATION: VITAL SIGNS: Temperature 98.9, pulse 96, blood pressure 136/71, respiratory rate 16, satting 100% on room air. GENERAL: The patient is lying in bed, in no acute distress, alert and oriented x0. NECK: Supple. No JVD noted. CARDIOVASCULAR: Regular rate and rhythm with slightly tachycardic rate. RESPIRATORY: Clear to auscultation bilaterally with no discernible wheezes or rales. ABDOMEN: Normoactive bowel sounds, soft, nontender, nondistended. EXTREMITIES: No cyanosis, clubbing or edema with mild cachexia in appearance. LABORATORY DATA: CBC with a white blood cell count of 6.9, hemoglobin 5.9, hematocrit 17.7, platelet s 407. Chemistry with a sodium of 141, potassium 4.1, chloride 114, CO2 of 27, BUN 40, creatinine 0. 75, glucose 171. IMAGING DATA: Abdominal x-ray obtained on 01/22/2018 shows placement of a NG tube with the enteric c atheter projecting in the left upper quadrant. ASSESSMENT AND PLAN: The patient is a 72-year-old female with past medical history of anemia; chroni c kidney disease, stage 3; cerebrovascular accident; diabetes; seizures; anxiety; depression; and sev ere intellectual disability; presenting with hypotension, tachycardia, and hematochezia, concerning f or overt GI bleeding. GI bleeding: The patient presented to the outside ER with hypotension and tachycardia and weakness, which was a change from her baseline with significant drop in her H&H noted on labs. She was transfu sed 2 units of PRBCs and transferred to [facility] for evaluation. While here, she had two grossly bloody bowel movements that were accompanied by a significant drop in her H&H, concerning for active gastrointestinal bleeding. At this point in time given the tachycardia and hypotension assoc iated with the decrease in her H&H, a brisk upper gastrointestinal bleed cannot be ruled out at this time. I would recommend endoscopic evaluation for GI bleeding. RECOMMENDATIONS: 1. Please make the patient n.p.o. in preparation for procedures. 2. We would place NG tube for the purposes of rapidly prepping the patient for colonoscopy. 3. We would plan for both EGD and colonoscopy given the possibility of both an upper and lower GI bl eeding source. 4. We would place patient on pantoprazole drip for possible upper gastrointestinal bleeding source. 5. Continue to trend H&H and transfuse as necessary to maintain an H&H of 7/21. 6. Continue to monitor clinically for any signs of active gastrointestinal bleeding. We will continue to monitor. Please call with any questions. The note was entered after the procedu re was performed due to the dictation system being down.
[2018-01-23 04:01] LABS: Hemoglobin 10.4 g/dL (12.0-16.0)
[2018-01-23 04:45] LABS: Anion Gap 10 mmol/L (10-20); BUN (Urea Nitrogen) 21 mg/dL (9.8-20.1); Calc. Creatinine Clearance 62 mL/min (70-130); Calcium 7.7 mg/dL (7.8-10.44); Carbon Dioxide 22 mmol/L (23-31); Chloride 109 mmol/L (98-107); Estimated GFR-MDRD 85; Glucose 98 mg/dL (83-110); Magnesium 1.5 mg/dL (1.6-2.6); Potassium 3.5 mmol/L (3.5-5.1); Sodium 137 mmol/L (136-145)
[2018-01-23 04:58] LABS: Phosphorus 1.9 mg/dL (2.3-4.7)
[2018-01-23] MEDS ORDERED: Potassium Phosphate 9 MMOL in Sodium Chloride 0.9% 100 ML IVPB PRN (05:38)
[2018-01-23] MEDS ORDERED: Potassium Chloride 40 MEQ in Sodium Chloride 0.9% 250 ML 250 ML IVPB PRN (05:38)
[2018-01-23] MEDS ORDERED: Potassium Chloride 20 MEQ TAB PO PRN (05:38)
[2018-01-23] MEDS ORDERED: Magnesium 2 GM/NS 0.9% 100 ML 2 GM in Premix Bag 1 BAG IVPB PRN (05:38)
[2018-01-23] MEDS ORDERED: CCU ELECTROLYTE REPLACEMENT PROTOCOL FS PRN (05:38)
[2018-01-23] MEDS ORDERED: Magnesium Oxide 400 MG TAB PO PRN ×2 (05:38)
[2018-01-23] MEDS ORDERED: Potassium Phosphate 15 MMOL in Sodium Chloride 0.9% 250 ML 250 ML IV PRN (05:38)
[2018-01-23] MEDS ORDERED: Potassium Phosphate 12 MMOL in Sodium Chloride 0.9% 250 ML 250 ML IV PRN (05:38)
[2018-01-23] MEDS ORDERED: Potassium Chloride 40 MEQ in Premix Bag 1 BAG IVPB PRN (05:38)
[2018-01-23] MEDS: Pantoprazole 80 MG in Sodium Chloride 0.9% 100 ML IVPB SCH (06:32)
--- NOTE | 2018-01-23 06:42 | HP ---
DATE OF ADMISSION: 01/21/2018 TIME OF SERVICE: 1500 hours. PRIMARY CARE PHYSICIAN: Rachana Fenton M.D. CHIEF COMPLAINT: Altered mental status. HISTORY OF PRESENT ILLNESS: Mr. Willis is a 72-year-old female with history of seizure disorder, mental handicap, CKD 3, hyperlipidemia, diabetes, hypertension, who is a resident of a long-term care facility in [place]. The patient was noted to not be acting like herself today, her blood pressure that was low and was sent to the emergency department for evaluation. In the [place] ER, she has been had a blood pressure of 83/56, pulse rate was 105 and lab workup showed abnormal urine and a hemoglobin of 6.1. She was typed and crossed 2 units of blood, she was given IV fluids, and initiated on dopamine drip and transferred here. Here on arrival, blood pressure was normalized, dopamine drip was tapered off. Labs showed her hemoglobin to be at 10.1. We were subsequently called for admission. The patient has been mentally handicapped and unable to give any history. The entire history is taken from the chart. She has a family member who came up when she first arrived, we gave her about 5 minutes the most and then very difficult to get hold of her telephone. She received a dose of vancomycin and ceftriaxone for abnormal urine and then placed in IMCU due to her sepsis. PAST MEDICAL HISTORY: 1. History of seizure disorder. 2. Chronic kidney disease stage 3. 3. Hyperlipidemia. 4. Diabetes mellitus type 2, insulin-dependent. 5. Hypertension. 6. Mental retardation. 7. Dysphagia. 8. Anxiety. 9. Depression. 10. Anemia of renal disease. PAST SURGICAL HISTORY: Unknown. HOME MEDICATIONS: 1. Lantus 5 units subcu daily. 2. Depakote 500 mg p.o. q.a.m. and q. noon and 250 mg p.o. at bedtime. 3. Colace 100 mg daily. 4. Aspirin 81 mg daily. 5. NovoLog sliding scale. 6. Lisinopril 5 mg daily. 7. Buspirone 5 mg p.o. t.i.d. 8. Multivitamin daily. 9. Fenofibrate 145 mg daily. 10. Phenobarbital 97.2 mg daily. 11. Trazodone 50 mg p.o. at bedtime. ALLERGIES: 1. NITROFURANTOIN. 2. SULFA. 3. TRIMETHOPRIM. 4. TRAMADOL. FAMILY HISTORY: Unknown. SOCIAL HISTORY: Negative for alcohol, tobacco or drugs. She is a long-term care facility and severe developmental delay. REVIEW OF SYSTEMS: Not obtainable due to patient's mental status. PHYSICAL EXAMINATION: VITAL SIGNS: Temperature 97.3, pulse 87, blood pressure 138/66, respiratory rate 16, and 98% on room air. GENERAL: The patient is awake and in no acute distress. She is barely communicative. She is somewhat agitated and messing with her telemetry monitoring device. HEENT: She is normocephalic. Pupils equal, round, and reactive to light bilaterally, there is no evidence of trauma. Teeth are in poor repair. Mucous membranes are dry. NECK: Supple. There is no lymphadenopathy, JVD or thyromegaly. She has normal carotid upstrokes. I do not appreciate bruits. LUNGS: Clear to auscultation. There is adequate air movement. Symmetric chest excursion. There are no wheezes, rales or rhonchi. There is no prolonged expiratory phase. CARDIOVASCULAR: She has normal cardiac and regular. Normal S1 and S2. She has a 2-3/6 holosystolic murmur best over the apex. ABDOMEN: Soft. It is diffusely tender mildly. There is no rebound, rigidity or guarding. She is not tympanitic and not distended. EXTREMITIES: No cyanosis, no clubbing, and no edema. SKIN: Pale. It is warm. Capillary refill is around 3-4 seconds. She has no other rashes or lesions. NEUROLOGIC: Not testable. She is moving all 4 of her extremities equally. Strength appears to be normal. MUSCULOSKELETAL: Normal to inspection. Large joints appear normal without any evidence of inflammation, no palpable effusions. LABORATORY EVALUATION: Sodium 141, potassium 4.5, chloride 106, bicarb 25, BUN 23, creatinine 0.85, calcium of 8.3, and glucose of 179. Liver functions are completely within normal limits. Albumin level was 2.6. Her CBC showed a white count of 8.5, hemoglobin is 10.2 up from 6.1 earlier today, hematocrit of 31.1. Platelets are 425,000. Her white count is in normal differential. Urinalysis showed a small leukocyte esterase, positive nitrite, greater than 50 white blood cells, 4+ bacteria, and 4-6 squamous epithelial cells. Her lactic acid initially was 1.9, repeat 1.8. BNP was 831. CK 12, CK-MB 0.7, troponin I undetectable less than 0.010. INR 1.2. RADIOGRAPHIC STUDIES: None. ASSESSMENT AND PLAN: 1. Urinary tract infection: The patient had a reactive urinalysis. We will start her on cefepime and follow up on the cultures. 2. Sepsis: The patient initially presented with altered mental status, hypotension, normal white blood cell count. She did not meet full criteria for sepsis, but more systemic inflammatory response syndrome. This is present on admission. She has been adequately fluid resuscitated. 3. Anemia: Cause unknown. Normally, she was around 8.0 to 8.5. She was 6.1 earlier, received 2 units, which should raise her hemoglobin to somewhere around 8 to 8.5. She is currently at 10.2. We will keep an eye on her blood count in the p.m. and the morning. She has no signs of active gastrointestinal blood loss. She had hard-formed stool on initial presentation. 4. Seizure disorder, on Depakote, we will continue. 5. Chronic kidney disease stage 3: Creatinine is stable. 6. Dyslipidemia. 7. Diabetes mellitus type 2. Hold her Lantus for the time being and continue NovoLog sliding scale. 8. Hypertension: Currently hypotensive. We will hold lisinopril for now. We will watch her creatinine. 9. Dysphagia. We will continue her home diet. REYNA
--- NOTE | 2018-01-23 09:18 | PRG ---
DATE OF SERVICE: 01/23/2018 This is a mentally challenged patient who was admitted for hypertension, anemia. Recurrent urinary tract infection. She was apparently placed on pressors. Clearly are unable to get any history at this stage from the patient. PHYSICAL EXAMINATION: VITAL SIGNS: This morning blood pressure is 108/49, sats 100% on room air, 16, temperature 98, pulse 75. CHEST: Chest reveals no wheezing or crackles. CARDIAC: Normal S1, S2, no gallops. ABDOMEN: Soft. No mass. LABORATORY: H&H is 10 and 30, platelet count 356. Electrolytes are normal. Urine is growing E. col i. IMPRESSION: 1. Recurrent urinary tract infection. 2. Gastrointestinal bleed. PLAN: Continue antibiotics. Endoscopy performed by GI. I will follow while in the [facility]. It appears her hypertension has improved.
[2018-01-23] MEDS: Cefepime 1 GM, Admixture Fee 1 EACH in Sodium Chloride 0.9% 10 ML SLOW IVP SCH ×2 (09:19→20:41)
[2018-01-23] MEDS: Sodium Chloride 0.9% 1,000 ML IV SCH ×2 (09:20→20:29)
[2018-01-23] MEDS: PHENobarbital 32.4 MG TAB PO SCH (09:22)
[2018-01-23] MEDS: busPIRone HCl 5 MG TAB PO SCH ×3 (09:22→20:29)
[2018-01-23] MEDS: Docusate 100 MG CAP PO SCH (09:22)
[2018-01-23] MEDS: Divalproex Sodium 125 mg Sprinkle Capsule PO SCH ×3 (09:22→20:30)
[2018-01-23 09:30] LABS: Hemoglobin 10.7 g/dL (12.0-16.0)
--- NOTE | 2018-01-23 12:20 | PQF ---
BENY KENNEYD JOSE [id number] [facility]-B04 [id number] CLINICAL DOCUMENTATION IMPROVEMENT CLARIFICATION FORM: ICD-10 Updated PLEASE DO AN ADDENDUM TO THE PROGRESS NOTE WITH ANY DOCUMENTATION UPDATES OR ADDITIONS AND CARRY THROUGH TO DC SUMMARY. THANK YOU. DATE: 01-23-18 ATTN: DR. SUNNY NEWBERRY Please exercise your independent, professional judgment in responding to the clarification form. Clinical indicators are provided on the bottom of this form for your review Please check appropriate box(s): [ ] Hemiplegia Specify: [ ] Non dominant side [ ] Dominant side Status: [ ] Complete [ ] Incomplete [ ] Functional Quadriplegia - Severe Mental Retardation [ ] Weakness (please specify anatomical area) Specify: [ ] Non dominant side [ ] Dominant side [ ] Other diagnosis [ ] Unable to determine CLINICAL INDICATORS - SIGNS / SYMPTOMS / LABS H&P: BARELY COMMUNICATIVE MOVES ALL 4 EXTREMITIES - STRENGTH APPEARS TO BE NORMAL NURSING ASSESSMENT 4-: AROUSABLE TO NAME; MUMBLING BEDBOUND PER SKILLED NURSING W/ MAXIMUM ASSISTANCE NURSING ASSESSMENT 4-: CONTRACTED - BED ALARM ACTIVATED INDWELLING MERIDA CATHETER - INCONTINENT TOTAL PU STAGE 1 SACROCOCCYGEAL ORIENTATION/ COGNITION - UNABLE TO COMPREHEND RISK FACTORS H&P: SEVERE MENTAL HANDICAP; LONG-TERM CARE FACILITIY SEIZURE DISORDER TREATMENT: NURSING ASSESSMENT: TOTAL CARE POSITION AND TURN Q2HRS FAILED BEDSIDE SWALLOW STUDY - PENDING ST CONSULT THANK YOU, MIYA (This form is maintained as a part of the permanent medical record) 2014 [employer], [employer]. All Rights Reserved Miya Wise RN, BS [email or web address] Cell [facility]
--- NOTE | 2018-01-23 12:22 | PQF ---
BENY KENNEDYSUNNY [id number] [facility]- B04 [id number] CLINICAL DOCUMENTATION IMPROVEMENT CLARIFICATION FORM: ICD-10 Updated PLEASE DO AN ADDENDUM TO THE PROGRESS NOTE WITH ANY DOCUMENTATION UPDATES OR ADDITIONS AND CARRY THROUGH TO DC SUMMARY. THANK YOU. DATE: 01-23-18 ATTN: DR. NEWBERRY Please exercise your independent, professional judgment in responding to the clarification form. Clinical indicators are provided on the bottom of this form for your review Please check appropriate box(s): [ ] Encephalopathy: Type: [ ] Acute [ ] Subacute [ ] Chronic Etiology: [ ] Metabolic [ ] Septic [ ] Transient Alteration of Awareness [ ] Other diagnosis [ ] Unable to determine For continuity of documentation, please document condition throughout progress notes and discharge summary. Thank You. CLINICAL INDICATORS - SIGNS / SYMPTOMS / LABS ER DX: ANEMIA; UTI; SEPSIS ER: PULSE 90 - 117; TEMP 100.2 RECTAL; CONFUSED - RESPONSIVE TO PAINFUL STIMULI ; GCS 11 (2/4/5); URINARY CATH PRESENT; H&P: PT WAS NOTED TO NOT BE ACTING LIKE HERSELF TODAY SEPSIS MENTAL HANDICAP; LONG-TERM CARE FACILITY BP [place]: 83/56; PULSE 105; RISK FACTORS H&P: SEPSIS / UTI HYPOTENSION 83/56 ANEMIA SEVERE MENTAL RETARDATION TREATMENTS: H&P: IMCU MONITORING 2 UNITS PRBC IN [place] ER IVF DOPAMINE DRIP TAPERED OFF AT [facility] 01-22 2 UNITS PRBC MAR: MAXIPIME 01-21 TO 01-23 NURSING ASSESSMENT: BED ALARM ACTIVATED THANK YOU, MIYA (This form is maintained as a part of the permanent medical record) 2015 [employer], [employer]. All Rights Reserved Miya Wise RN, BS [email or web address] Cell [facility]
--- NOTE | 2018-01-23 12:34 | PQF ---
BENY KENNEDYSUNNY [id number] [facility]- B04 [id number] CLINICAL DOCUMENTATION IMPROVEMENT CLARIFICATION FORM: ICD-10 Updated PLEASE DO AN ADDENDUM TO THE PROGRESS NOTE WITH ANY DOCUMENTATION UPDATES OR ADDITIONS AND CARRY THROUGH TO DC SUMMARY. THANK YOU. DATE: 01-23-18 ATTN: DR. NEWBERRY Please exercise your independent, professional judgment in responding to the clarification form. Clinical indicators are provided on the bottom of this form for your review Please check appropriate box(s): [ ] Acute blood loss anemia [ ] Anemia: [ ] Chronic Anemia: [ ] Blood loss [ ] Other [ ] Anemia of Chronic Disease (please specify) [ ] Other diagnosis [ ] Unable to determine In addition, please specify: Present on Admission (POA): [ ] Yes [ ] No [ ] Unable to determine For continuity of documentation, please document condition throughout progress notes and discharge summary. Thank You. CLINICAL INDICATORS - SIGNS / SYMPTOMS / LABS ER DX: ANEMIA; UTI; SEPSIS ER: PULSE 90-117 BP 135/84; 137/101; 110/98 TRANSFER FOR ANEMIA/HYPOTENSION - ON DOPAMINE DRIP H&P: [place] ER BP 83/56; PULSE 105; HEMOGLOBIN 6.1 -29 PN WALKER: LARGE DARK RED BLOODY BM LABS: Hgb Hct 01-21 10.2 31.1 01-22 5.8 17.4 01-22 5.9 17.7 RISK FACTORS H&P: SEPSIS / UTI HYPOTENSION 83/56 ANEMIA GI OP NOTE: EGD - TWO ULCERATION IN GASTRIC ANTRUM - LARGER ONE W/ RED SPOT IN CENTER W/ POSSIBLE VISIBLE VESSEL - BIPOLAR CAUTERY PERFORMED TREATMENTS: H&P: IMCU MONITORING 2 UNITS PRBC IN [facility] IVF DOPAMINE DRIP TAPERED OFF AT [facility] 01-22 2 UNITS PRBC MAR: MAXIPIME 01-21 TO 01-23 EGD/COLONOSCOPY: TWO ULCERATION IN GASTRIC ANTRUM - LARGER ONE W/ RED SPOT IN CNETER W/ POSSIBLE VISIBLE VESSEL - BIPOLAR CAUTERY PERFORMED THANK YOU, MIYA (This form is maintained as a part of the permanent medical record) 2015 [employer], [employer]. All Rights Reserved Miya Wise RN, BS [email or web address] Cell [facility]
--- NOTE | 2018-01-23 16:53 | PDOC.PN ---
- Subjective Encounter Start Date: 01/23/18 Encounter Start Time: 16:52 Limited subjective assessment due to severe intellectual retardation. Per nurse , no evidence of bleeding. - Objective Resuscitation Status: Resuscitation Status FULL:Full Resuscitation Vital Signs & Weight: Vital Signs (12 hours) Temp Pulse Pulse Resp BP BP BP 01/23/18 16:00 98.6 F 86 16 142/82 H 01/23/18 10:53 98.2 F 81 16 101/48 L 01/23/18 09:53 85 97/54 L 121/62 01/23/18 08:00 98.6 F 75 16 01/23/18 07:30 98.6 F 75 16 108/49 L 01/23/18 05:24 Pulse Ox 01/23/18 16:00 01/23/18 10:53 99 01/23/18 09:53 01/23/18 08:00 98 01/23/18 07:30 100 01/23/18 05:24 97 Weight Weight 118 lb 9 oz I&O: 01/22/18 01/23/18 01/24/18 06:59 06:59 06:59 Intake Total 1400 3720 Output Total 1950 2975 Balance -550 745 Result Diagrams: 01/23/18 09:18 01/23/18 03:15 Additional Labs: Accuchecks 01/23/18 01/23/18 01/22/18 10:27 06:52 21:51 POC Glucose 137 H 114 H 115 H Radiology Reviewed by me: Yes EKG Reviewed by me: Yes Phys Exam - Physical Examination Mild distress HEENT: PERRLA, moist MMs Poor dentition Neck: no nodes, no JVD, supple, full ROM Respiratory: no wheezing, no rales, no rhonchi, clear to auscultation bilateral Cardiovascular: RRR, no significant murmur, no rub Gastrointestinal: soft, non-tender, no distention, positive bowel sounds Musculoskeletal: no edema, pulses present General contracture of the limbs. Answers yes and no to my questions only. Deviation from normal: Intellectual retardation Skin: cap refill <2 seconds Deviation from normal: General pallor Dx/Plan (1) Upper GI bleed Code(s): K92.2 - GASTROINTESTINAL HEMORRHAGE, UNSPECIFIED Status: Acute Plan: Due to gastric ulcers (2) that were cauterized. No more evidence of bleeding. GI follows (2) Acute blood loss anemia Code(s): D62 - ACUTE POSTHEMORRHAGIC ANEMIA Status: Resolved (3) Sepsis Code(s): A41.9 - SEPSIS, UNSPECIFIED ORGANISM Status: Ruled-out Plan: No criteria for sepsis (4) Functional quadriplegia Code(s): R53.2 - FUNCTIONAL QUADRIPLEGIA Status: Chronic (5) Developmental delay, severe Code(s): R62.50 - UNSP LACK OF EXPECTED NORMAL PHYSIOL DEV IN CHILDHOOD Status : Chronic Plan: At baseline (6) UTI (urinary tract infection) Status: Acute Qualifiers: Urinary tract infection type: acute cystitis Hematuria presence: without hematuria Qualified Code(s): N30.00 - Acute cystitis without hematuria Plan: Continue current ABx Comment: Culture grew Proteus and E. Coli, sensitive to cefepime- now on Omnicef. (7) Encephalopathy Code(s): G93.40 - ENCEPHALOPATHY, UNSPECIFIED Status: Ruled-out Plan: Chronic severe intellectual retardation at baseline (8) Seizure disorder Code(s): G40.909 - EPILEPSY, UNSP, NOT INTRACTABLE, WITHOUT STATUS EPILEPTICUS Status: Chronic Comment: Continue home medications. - Plan cont current plan of care Code; full Core; PPI, SCDs Disp; telemetry prog; guarded clinical status; guarded Expected discharge; to be determined Total time spent; 34 minutes
--- NOTE | 2018-01-23 20:19 | CON ---
DATE OF CONSULTATION: 01/22/2018 SERVICE: Pulmonary Medicine. REASON FOR CONSULT: Acute blood loss anemia. HISTORY OF PRESENT ILLNESS: The patient is a 72-year-old white female, who is part of a retirement. She has got severe mental retardation. Either way, she started having bloody bowel movements. She was brought to the Emergency Department. Originally, her hemoglobin was initially stable and appropriate responded to the blood but then she started having perfuse bowel movements overnight. Her hemoglobin dropped off insignificant fashion down to 5 this morning. She cannot provide any additional elements of the history. So far, she has not had any hemodynamic instability. PAST MEDICAL HISTORY: 1. Seizure disorder. 2. Chronic kidney disease, stage III. 3. Dyslipidemia. 4. Type 2 diabetes mellitus. 5. Hypertension. 6. Mental retardation. 7. Oropharyngeal dysphagia. PAST SURGICAL HISTORY: Unknown. SOCIAL HISTORY: Unknown. She does live in a retirement. FAMILY HISTORY: Noncontributory. ALLERGIES: BACTRIM, MACROBID, SULFA, TRAMADOL. MEDICATIONS: List of her inpatient medications were reviewed. Multiple updates were made. REVIEW OF SYSTEMS: This cannot be obtained because of the patient's static encephalopathy. PHYSICAL EXAMINATION: VITAL SIGNS: Afebrile, pulse 103, blood pressure 140/80, respirations 16, saturation 100% on room air. GENERAL: The patient is awake and alert. She does not appear to be any distress. HEENT: Normocephalic, atraumatic. Sclerae white. Conjunctiva white. Oral and nasal mucosa is moist. LUNGS: Decent air entry without prolonged expiratory phase, wheezing, rhonchi, or crackles. HEART: Normal rate, regular. ABDOMEN: Soft, nontender, nondistended. Bowel sounds are positive. MUSCULOSKELETAL: No cyanosis or clubbing. There is no pitting in the bilateral lower extremities. NEUROLOGIC: Grossly nonfocal. LABORATORY DATA: WBC 6.9, hemoglobin 5.9, platelets 407,000. Creatinine 0.75. BUN is 40. Basic metabolic profile is otherwise unremarkable. Magnesium 1.7. IMAGING: KUB demonstrates nonspecific bowel gas pattern. Coarse calcification in the left upper quadrant is noted. Enteric catheter is in good location. ASSESSMENT: 1. Acute blood loss anemia. 2. Gastrointestinal bleed. 3. Mental retardation. PLAN: She has already gotten transfuse 2 units of blood. We will repeat hemoglobin. We will try to keep her above 7. She is being prepped for endoscopy this afternoon, will be under general anesthesia. Depending on what he finds, she may come out intubated. I will check a phosphorus and INR tomorrow morning. 70 minutes have been devoted to this patient in various activities. I personally reviewed all imaging studies and laboratory data noted within this document. For fifty percent of this time, I was interacting with the patient at the bedside or coordinating care with the care team. For the remainder of the time I was immediately available to the patient in the hospital unit. REYNA
--- NOTE | 2018-01-24 00:03 | PRG ---
DATE OF SERVICE: 01/23/2018 REASON FOR CONSULTATION: Hematochezia. SUBJECTIVE: The patient is doing well overnight with no acute events or problems per nursing staff. Per nursing staff, she also has not had any further bowel movements or bloody bowel movements for th at matter. With her current intellectual disability, she is unable to provide any meaningful respons es upon interview today, instead perseverating about how she would like a drink of water. OBJECTIVE: VITAL SIGNS: Temperature 97.9, pulse 92, blood pressure 129/64, respiratory rate 18, satting 95% on room air. GENERAL: The patient is lying in bed in no acute distress, only alert, but not oriented at all. CARDIOVASCULAR: Regular rate and rhythm. RESPIRATORY: Clear to auscultation bilaterally. ABDOMEN: Normoactive bowel sounds. Soft, nontender, nondistended. EXTREMITIES: No cyanosis, clubbing, or edema. LABORATORY DATA: Repeat CBC this morning with a hemoglobin of 10.4 and a hematocrit of 30. Chemistr y with a glucose of 114. IMAGING DATA: No current GI imaging is available for review. ASSESSMENT AND PLAN: The patient is a 72-year-old female with a past medical history of anemia; a p mechanic elizabeth kidney disease, stage 3; cerebrovascular accident; diabetes; seizures; anxiety; depression; and s evere intellectual disability presenting with hematochezia. Hematochezia. The patient initially presented to an outside ER with hypotension and tachycardia with a significant drop in her H&H from baseline. She was then transfused 2 units and transferred to [facility] for evaluation. While in the intermediate care unit, she was noted to have two larg e grossly bloody bowel movements, also with a concomitant drop in her H&H, concerning for active aramis rointestinal bleeding. She underwent both EGD and colonoscopy on 12/22/2017 with relatively normal c olonoscopic findings, but the finding of a small ulceration within the gastric antrum with a red spot /visible vessel seen concerning for possible GI bleeding source. This site was intervened upon with bipolar cautery with good hemostasis achieved. Post-procedure, she has not had any further episodes of hematochezia or melena with stabilization in her H&H, indicating probable response to treatment. However, risk of repeat bleed from this site remains highest within the first 48-72 hours after inter vention and will require a little bit more monitoring for now. RECOMMENDATIONS: 1. Can advance the patient's diet as tolerated. 2. We would continue to trend H&H and transfuse as necessary to maintain an H&H of 7/. 3. Continue to monitor for signs of active gastrointestinal bleeding. 4. Can transfer the patient to pantoprazole 40 mg twice daily from the pantoprazole drip. We will n eed continued monitoring in an inpatient setting for at least the next 24 hours. We will continue to monitor. Please call with any questions.
[2018-01-24 05:36] LABS: Hemoglobin 10.6 g/dL (12.0-16.0); Mean Corpuscular HGB CONC 33.2 g/dL (32.0-36.0); Mean Corpuscular Hemoglobin 28.2 pg (27.0-31.0); Mean Corpuscular Volume 84.9 fl (81.0-99.0); Platelet Count 347 thou/uL (130-400); RBC Distribution Width 15.3 % (11.5-14.5); Red Blood Cell (RBC) Count 3.75 mill/uL (4.20-5.40); White Blood Cell (WBC) Count 7.8 thou/uL (4.8-10.8)
[2018-01-24] MEDS: Sodium Chloride 0.9% 1,000 ML IV SCH ×3 (05:52→20:20)
[2018-01-24 06:18] LABS: Anion Gap 10 mmol/L (10-20); BUN (Urea Nitrogen) 14 mg/dL (9.8-20.1); Calc. Creatinine Clearance 66 mL/min (70-130); Calcium 7.9 mg/dL (7.8-10.44); Carbon Dioxide 22 mmol/L (23-31); Chloride 107 mmol/L (98-107); Estimated GFR-MDRD 88; Glucose 131 mg/dL (83-110); Magnesium 1.6 mg/dL (1.6-2.6); Phosphorus 2.5 mg/dL (2.3-4.7); Potassium 3.7 mmol/L (3.5-5.1); Sodium 135 mmol/L (136-145)
[2018-01-24] MEDS: Cefepime 1 GM, Admixture Fee 1 EACH in Sodium Chloride 0.9% 10 ML SLOW IVP SCH (09:28)
[2018-01-24] MEDS: PHENobarbital 32.4 MG TAB PO SCH (09:28)
[2018-01-24] MEDS: Pantoprazole 40 MG VIAL IVP SCH ×2 (09:28→20:17)
[2018-01-24] MEDS: busPIRone HCl 5 MG TAB PO SCH ×3 (09:29→20:16)
[2018-01-24] MEDS: Docusate 100 MG CAP PO SCH (09:29)
[2018-01-24] MEDS: Divalproex Sodium 125 mg Sprinkle Capsule PO SCH ×3 (09:30→20:21)
[2018-01-24 10:12] LABS: INR-International Normal Ratio 1.3; Prothrombin Time 15.9 SEC (12.0-14.7)
--- NOTE | 2018-01-24 15:15 | PDOC.PN ---
- Subjective Encounter Start Date: 01/24/18 Encounter Start Time: 15:18 Subjective: No acute events overnight -: EGD revealed 2 gastric ulcers. Have been cauterized. -: Hemoglobin has remained stable. - Objective Resuscitation Status: Resuscitation Status FULL:Full Resuscitation MAR Reviewed: Yes Vital Signs & Weight: Vital Signs (12 hours) Temp Pulse Resp BP BP BP Pulse Ox 01/24/18 15:07 97.0 F L 17 153/84 H 93 L 01/24/18 11:11 97.0 F L 80 16 131/64 98 01/24/18 08:45 154/69 H 159/87 H 01/24/18 08:00 97.0 F L 80 16 01/24/18 07:15 97.3 F L 88 18 136/78 93 L 01/24/18 04:00 98.9 F 86 16 109/84 Weight Weight 119 lb I&O: 01/23/18 01/24/18 01/25/18 06:59 06:59 06:59 Intake Total 3720 2670 Output Total 2975 2650 Balance 745 20 Result Diagrams: 01/24/18 04:53 01/24/18 04:53 Additional Labs: Accuchecks 01/24/18 01/23/18 01/23/18 06:01 20:52 17:38 POC Glucose 134 H 162 H 136 H Phys Exam - Physical Examination Constitutional: NAD HEENT: PERRLA, moist MMs, sclera anicteric, oral pharynx no lesions Neck: no JVD, supple, full ROM Respiratory: no wheezing, no rales, no rhonchi, clear to auscultation bilateral Cardiovascular: RRR, no significant murmur, no rub Gastrointestinal: soft, non-tender, no distention, positive bowel sounds Musculoskeletal: no edema, pulses present Unable to cooperate w exam 2/2 developmental delay Skin: no rash, normal turgor Dx/Plan (1) Upper GI bleed Code(s): K92.2 - GASTROINTESTINAL HEMORRHAGE, UNSPECIFIED Status: Acute Comment: 2/2 two Gastric Ulcers. Cauterized. Hb stable s/p transfusion w 2 units PRBC. (2) Functional quadriplegia Code(s): R53.2 - FUNCTIONAL QUADRIPLEGIA Status: Chronic (3) Developmental delay, severe Code(s): R62.50 - UNSP LACK OF EXPECTED NORMAL PHYSIOL DEV IN CHILDHOOD Status : Chronic (4) Seizure disorder Code(s): G40.909 - EPILEPSY, UNSP, NOT INTRACTABLE, WITHOUT STATUS EPILEPTICUS Status: Chronic Comment: Continue home medications. - Plan cont current plan of care, continue antibiotics, social media job titles, DVT proph w/ SCDs Transfer to medical floor -: Likely discharge tomorrow. * . Review of Systems - Medications/Allergies Allergies/Adverse Reactions: Allergies Allergy/AdvReac Type Severity Reaction Status Date / Time nitrofurantoin Allergy Verified 01/21/18 12:38 [From Macrobid] Sulfa (Sulfonamide Allergy Verified 01/21/18 12:38 Antibiotics) sulfamethoxazole Allergy Verified 01/21/18 12:38 [From Bactrim] tramadol Allergy Verified 01/21/18 12:38 trimethoprim [From Bactrim] Allergy Verified 01/21/18 12:38 Medications: Current Medications Acetaminophen (Tylenol) 650 mg PO Q4H PRN PRN Reason: Headache/Fever or Pain Buspirone HCl (Buspar) 5 mg PO TID [facility] Last Admin: 01/24/18 09:29 Dose: 5 mg Cefdinir (Omnicef) 300 mg PO BID [facility] Dextrose/Water (Dextrose 50%) 25 gm SLOW IVP PRN PRN PRN Reason: Hypoglycemia Divalproex Sodium (Depakote Sprinkle) 250 mg PO HS [facility] Last Admin: 01/23/18 20:30 Dose: 250 mg Divalproex Sodium (Depakote Sprinkle) 500 mg PO 09,13 [facility] Last Admin: 01/23/18 14:48 Dose: Not Given Docusate Sodium (Colace) 100 mg PO DAILY [facility] Last Admin: 01/24/18 09:29 Dose: 100 mg Glucagon (Glucagon) 1 mg IM PRN PRN PRN Reason: Hypoglycemia Dextrose/Water (D5w) 1,000 mls @ 0 mls/hr IV .Q0M PRN; As Directed PRN Reason: Hypoglycemia Sodium Chloride (Normal Saline 0.9%) 1,000 mls @ 100 mls/hr IV .Q10H [facility] Last Admin: 01/24/18 05:52 Dose: 1,000 mls Potassium Chloride 40 meq/ (Sodium Chloride) 270 mls @ 135 mls/hr IVPB ASDIR PRN PRN Reason: FOR SERUM K+ 2.5 - 3.5 Potassium Chloride 40 meq/ (Device) 100 mls @ 50 mls/hr IVPB ASDIR PRN PRN Reason: FOR SERUM K+ 2.5 - 3.5 Magnesium Sulfate 1 gm/ Sodium (Chloride) 102 mls @ 102 mls/hr IV PRN PRN PRN Reason: MAG LEVEL 1.4 - 2.0 Last Admin: 01/23/18 06:33 Dose: 102 mls Magnesium Sulfate 2 gm/ Device 100 mls @ 100 mls/hr IVPB ASDIR PRN PRN Reason: MAGNESIUM < 1.4 Potassium Phosphate 9 mmol/ (Sodium Chloride) 103 mls @ 25.75 mls/hr IVPB ASDIR PRN PRN Reason: Phosphate 1.0-1.8 Last Admin: 01/23/18 06:36 Dose: 103 mls Potassium Phosphate 12 mmol/ (Sodium Chloride) 254 mls @ 63.5 mls/hr IV ASDIR PRN PRN Reason: Serum phosphate 0.5-0.9 Potassium Phosphate 15 mmol/ (Sodium Chloride) 255 mls @ 63.75 mls/hr IV ASDIR PRN PRN Reason: Serum Phos < 0.5 Insulin Human Lispro (Humalog) 0 units SC .MILD SLIDING SCALE PRN PRN Reason: Mild Correctional Scale Magnesium Oxide (Magnesium Oxide) 400 mg PO BIDPRN PRN PRN Reason: FOR SERUM MAG 1.4 - 2.0 Magnesium Oxide (Magnesium Oxide) 800 mg PO PRN PRN PRN Reason: FOR SERUM MAG < 1.4 Miscellaneous Medication (Phos-Nak) 1 pkt PO TIDPRN PRN PRN Reason: FOR PHOS LEVEL 1.0 - 1.8 Miscellaneous Medication (Phos-Nak) 2 pkt PO TIDPRN PRN PRN Reason: FOR PHOS LEVEL 0.5 - 1.0 Ccu Electrolyte (Replacement Protocol) 0 each FS PRN PRN PRN Reason: FOR ELECTROLYTE REPLACEMENT Pantoprazole Sodium (Protonix) 40 mg IVP Q12HR [facility] Last Admin: 01/24/18 09:28 Dose: 40 mg Phenobarbital (Phenobarbital) 97.2 mg PO DAILY [facility] Last Admin: 01/24/18 09:28 Dose: 97.2 mg Potassium Chloride (K-Dur) 40 meq PO ASDIR PRN PRN Reason: FOR SERUM K+ 2.5 - 3.5 Potassium Chloride (Klor-Con) 40 meq PER TUBE ASDIR PRN PRN Reason: FOR SERUM K+ 2.5-3.5 Sodium Chloride (Flush - Normal Saline) 10 ml IVF PRN PRN PRN Reason: Saline Flush
--- NOTE | 2018-01-24 18:13 | PRG ---
DATE OF SERVICE: 01/24/2018 REASON FOR CONSULTATION: Hematochezia. SUBJECTIVE: The patient is doing well today with no acute events or problems overnight. Per nursing staff, she has not had any further bloody bowel movements and was tolerating solid foods for most of the day without difficulty. OBJECTIVE: VITAL SIGNS: Temperature 97, pulse 80, blood pressure 153/84, respiratory rate 17, and satting 93% o n room air. GENERAL: The patient is lying in bed in no acute distress. He is alert to person, currently eating dinner. CARDIOVASCULAR: Regular rate and rhythm. RESPIRATORY: Clear to auscultation bilaterally. ABDOMEN: Normoactive bowel sounds, soft, nontender, nondistended. EXTREMITIES: No cyanosis, clubbing or edema. LABORATORY DATA: CBC with a white blood cell count of 7.8, hemoglobin 10.6, hematocrit 31.8, platele ts 347. INR 1.3. Chemistry with sodium of 135, potassium 3.7, chloride 107, CO2 22, BUN 14, creatin ine 0.66, glucose 131. IMAGING DATA: No current GI imaging is available for review. ASSESSMENT: The patient is a 72-year-old female with past medical history of anemia of chronic disea se, renal disease, chronic kidney disease stage 3, cerebrovascular accident, diabetes, seizures, anxi ety, depression and severe intellectual disability, presenting with hematochezia. Hematochezia. Patient initially transferred from an outside hospital with complaints of hypotension and weakness. She was noted to have a significant decrease in H&H on admission which required blood infusion. The following day after her initial admission, she was noted to have two large bloody rubén l movements, concerning for GI bleed. She underwent both upper and lower endoscopy on 01/22/2018 wit h relatively normal colonic findings, but a small ulceration was seen within the gastric antrum with a visible vessel that was treated with electrocautery. Since at this point, she has had no further e pisodes of GI bleeding since intervention on this particular ulceration with stabilization of her H&H . 1. Continue to trend H&H and transfuse as necessary to maintain an H&H of 7/21. 2. Continue to monitor for signs of active gastrointestinal bleeding. 3. Continue patient on pantoprazole 40 mg twice daily for the next 30 days, then can transfer to [facility] e daily dosing. We will sign off at this time. Please call with any additional questions.
--- NOTE | 2018-01-24 18:26 | PRG ---
DATE OF SERVICE: 01/24/2018 SUBJECTIVE: Maggie Willis remains in MICU without any distress. OBJECTIVE: VITAL SIGNS: Sats are 90% room air, temperature 97, blood pressure 136/78. GENERAL: She is mentally challenged. We are unable to get any history. LABORATORY DATA: Electrolytes are normal. White count is 7000, H and H 10 and 30. IMPRESSION: 1. Gastrointestinal bleed, stable. 2. Presumed urinary tract infection. PLAN: She can transfer out of the MICU to regular unmonitored bed. Switch over to oral antibiotics. Pulmonary will follow at a distance. Call if needed.
[2018-01-24] MEDS ORDERED: Cefdinir 300 MG CAP PO SCH (21:00)
[2018-01-25 06:00] LABS: #Eosinphils 0.3 thou/uL (0.0-0.7); #Lymphocytes 1.8 thou/uL (1.20-3.40); #Monocytes 0.7 thou/uL (0.11-0.59); #Neutrophils 6.5 thou/uL (1.40-6.50); %Basophils 0.3 % (0.0-1.0); %Eosinophils 3.3 % (0.0-10.0); %Lymphocytes 19.7 % (21.0-51.0); %Monocytes 7.2 % (0.0-10.0); %Neutrophils 69.6 % (42.0-75.0); Hemoglobin 10.2 g/dL (12.0-16.0); Mean Corpuscular HGB CONC 32.9 g/dL (32.0-36.0); Mean Corpuscular Hemoglobin 27.9 pg (27.0-31.0); Mean Corpuscular Volume 84.7 fl (81.0-99.0); Mean Platelet Volume 5.9 fL (7.4-10.4); Platelet Count 353 thou/uL (130-400); RBC Distribution Width 15.4 % (11.5-14.5); Red Blood Cell (RBC) Count 3.67 mill/uL (4.20-5.40); White Blood Cell (WBC) Count 9.3 thou/uL (4.8-10.8)
[2018-01-25 06:09] LABS: Anion Gap 10 mmol/L (10-20); BUN (Urea Nitrogen) 10 mg/dL (9.8-20.1); Calc. Creatinine Clearance 66 mL/min (70-130); Calcium 7.8 mg/dL (7.8-10.44); Carbon Dioxide 25 mmol/L (23-31); Chloride 105 mmol/L (98-107); Estimated GFR-MDRD 88; Glucose 151 mg/dL (83-110); Phosphorus 2.2 mg/dL (2.3-4.7); Potassium 3.6 mmol/L (3.5-5.1); Sodium 136 mmol/L (136-145)
[2018-01-25] MEDS: Sodium Chloride 0.9% 1,000 ML IV SCH (07:09)
[2018-01-25] MEDS: Docusate 100 MG CAP PO SCH (07:58)
[2018-01-25] MEDS: Pantoprazole 40 MG VIAL IVP SCH (07:58)
[2018-01-25] MEDS: busPIRone HCl 5 MG TAB PO SCH ×2 (07:58→14:02)
[2018-01-25] MEDS: PHENobarbital 32.4 MG TAB PO SCH (11:14)
[2018-01-25] MEDS: Divalproex Sodium 125 mg Sprinkle Capsule PO SCH ×2 (11:15→14:02)
--- NOTE | 2018-01-25 12:18 | DIS ---
DISCHARGE DIAGNOSES: Upper GI bleed 2/2 gastric ulcer, quadriplegia, severe developmental delay and seizure disorder. HISTORY OF PRESENT ILLNESS/HOSPITAL COURSE: Ms. Maggie Willis is a 72-year- old female with a history of seizure disorder, mental handicap disease, hyperlipidemia, diabetes and hypertension who is a long-term resident at a facility in [place] who was noted not to be acting like herself on the day of admission. Her blood pressure noted to be low and she was sent to the emergency room for evaluation at the [facility]. She had a blood pressure of 83/56, pulse rate of 105 and lab work showed abnormal urine and hemoglobin of 6.1. She was typed and crossed with 2 units of blood, which was transfused. She was given IV fluid and she was placed on a dopamine drip before being transferred to [place]. On arrival, her blood pressure normalized and dopamine drip was tapered off. Hemoglobin was then found to be 10.1. She was admitted for further care. Of note, the patient has a diagnosis of severe developmental delay unable to give any history, so history was elicited from chart review. She was started on a dose of vancomycin and ceftriaxone for abnormal urinalysis and admitted to the [facility] for sepsis. She was reviewed by GI who conducted an endoscopy and found 2 gastric ulcers which were cauterized. She was started on IV Protonix 40 mg b.i.d. q.12h. Hemoglobin remained stable and she was deemed stable for discharge. She is to take PPI 40 mg twice a day for a month and continue with 40 mg daily thereafter. Her daily aspirin was also discontinued due to GI bleeds. Once this has resolved she should follow up with her primary care physician to restart this medication. DISCHARGE MEDICATIONS: Pantoprazole 40 mg twice a day, trazodone 50 mg at bedtime, docusate 100 mg daily. Divalproex sodium 500 mg twice a day, divalproex sodium 250 mg at bedtime, phenobarbital 7.2 mg daily, multivitamins 1 tablet daily, lisinopril 2.5 mg daily, fenofibrate, buspirone hydrochloride 5 mg 3 times a day, insulin Glargine 5 units subcutaneously daily, insulin aspart sliding scale. DISCONTINUED MEDICATIONS: Aspirin 81 mg daily. PHYSICAL EXAMINATION: She was examined on the day of discharge. VITAL SIGNS: Temperature 98.5 degrees Fahrenheit, pulse rate 61, respiratory rate 18, oxygen saturation 96% on room air, blood pressure 121/73. GENERAL: Not in acute distress, lying comfortably in bed. HEENT: PERRLA. Moist mucous membranes. Sclerae are anicteric. No oral lesions. NECK: No JVD, supple. Full range of movement. RESPIRATORY: Vesicular breath sounds bilaterally. No wheezes, rales or rhonchi. CARDIOVASCULAR: Regular rate and rhythm, S1 and S2 only. No murmurs, rubs or gallops. GASTROINTESTINAL: Soft, nontender, nondistended. Bowel sounds normoactive. No hepatosplenomegaly. MUSCULOSKELETAL: No edema. Pulses present. NEUROLOGIC: Unable to cooperate with exam, but alert and answering simple questions. SKIN: Warm and dry, no rashes. LABORATORY AND X-RAY FINDINGS: WBC 9.3, hemoglobin 10.2, platelet count 353, sodium 136, potassium 3.2, chloride 105, carbon dioxide 25, anion gap 10, BUN 10 , creatinine 0.66, glucose 151, calcium 7.8. IMAGING: Abdomen x-ray; NG tube in gastric fundus. CONSULTATIONS: Gastroenterology and Pulmonology CONDITION AT DISCHARGE: Stable and improved. PROCEDURES: EGD. DIET: Consistent carbohydrate/diabetic. CARE GOALS: To follow up with her primary care physician within 1 week about restarting aspirin. ACTIVITY: As tolerated. Discharge time 65 minutes including chart review and documentation. MTDD
[2018-01-25 14:46] VITALS: BP 130/79; TEMP 97.6
== END 2018-01-25 15:53 | DRG 377 ==
LOC: ERS 09:38 → IMCU/EMU 10:24 → T4-B 01-24 17:53
PROVIDERS: ADMIT Internal Medicine Infectious Disease; ATTEND Internal Medicine Infectious Disease
PROC: 30233N1 Transfusion of Nonautologous Red Blood Cells into Peripheral Vein, Percutaneous Approach (ICD-10-PCS; principal; 2018-01-21)
PROC: 0W3P8ZZ Control Bleeding in Gastrointestinal Tract, Via Natural or Artificial Opening Endoscopic (ICD-10-PCS; 2018-01-22)
PROC: 0DJD8ZZ Inspection of Lower Intestinal Tract, Via Natural or Artificial Opening Endoscopic (ICD-10-PCS; 2018-01-22)
DX: K25.4 Chronic or unspecified gastric ulcer with hemorrhage (principal); R53.2 Functional quadriplegia; F72 Severe intellectual disabilities; D62 Acute posthemorrhagic anemia; N30.00 Acute cystitis without hematuria; R62.50 Unspecified lack of expected normal physiological development in childhood; G40.909 Epilepsy, unspecified, not intractable, without status epilepticus; E78.5 Hyperlipidemia, unspecified; I12.9 Hypertensive chronic kidney disease with stage 1 through stage 4 chronic kidney disease, or unspecified chronic kidney disease; E11.22 Type 2 diabetes mellitus with diabetic chronic kidney disease; N18.3 Chronic kidney disease, stage 3 (moderate); D63.1 Anemia in chronic kidney disease; F41.9 Anxiety disorder, unspecified; F32.9 Major depressive disorder, single episode, unspecified; I95.9 Hypotension, unspecified; R13.10 Dysphagia, unspecified; Z86.73 Personal history of transient ischemic attack (TIA), and cerebral infarction without residual deficits
CPT/HCPCS: 36415; 36416; 36430; 74018; 80048; 83605; 83735; 84100; 85014; 85018; 85025; 85027; 85610; 86850; 86900; 86901; 96365; 96375; C9113; G8981-GP-CN; G8982-GP-CN; G8983-GP-CN; G8987-GO-CN; G8988-GO-CN; G8989-GO-CN; G8996-GN-CK; G8997-GN-CK; J0692; J0696; J2001; J2250; J2550; J2704; J3010; J3370; J3475; J3480; J7050; P9016

== ENCOUNTER 2019-11-18 14:45 | Inpatient (IN) | payer MEDICARE, MEDICAID ==
[2019-11-18 15:30] VITALS: BMI 23.1
[2019-11-18] MEDS ORDERED: Ondansetron ODT 4 MG TAB SL PRN (16:50)
[2019-11-18] MEDS ORDERED: Ondansetron PF 4 MG/2 ML Vial IVP PRN (16:50)
[2019-11-18] MEDS ORDERED: Acetaminophen 325 MG TAB PO PRN (17:18)
[2019-11-18] MEDS ORDERED: Ondansetron ODT 4 MG TAB PO PRN (17:18)
[2019-11-18] MEDS ORDERED: Senokot S 8.6-50 MG TAB PO PRN (17:18)
[2019-11-18 17:46] LABS: #Eosinphils 0.1 thou/uL (0.0-0.7); #Lymphocytes 1.7 thou/uL (1.20-3.40); #Monocytes 0.5 thou/uL (0.11-0.59); #Neutrophils 4.4 thou/uL (1.40-6.50); %Basophils 0.6 % (0.0-1.0); %Eosinophils 1.2 % (0.0-10.0); %Lymphocytes 25.3 % (21.0-51.0); %Monocytes 7.2 % (0.0-10.0); %Neutrophils 65.7 % (42.0-75.0); Hemoglobin 13.5 g/dL (12.0-16.0); Mean Corpuscular HGB CONC 35.6 g/dL (32.0-36.0); Mean Corpuscular Hemoglobin 30.3 pg (27.0-31.0); Mean Corpuscular Volume 85.2 fL (78.0-98.0); Platelet Count 223 thou/uL (130-400); RBC Distribution Width 13.3 % (11.5-14.5); Red Blood Cell (RBC) Count 4.45 mill/uL (4.20-5.40); White Blood Cell (WBC) Count 6.7 thou/uL (4.8-10.8)
[2019-11-18 18:06] LABS: Anion Gap 15 mmol/L (10-20); BUN (Urea Nitrogen) 21 mg/dL (9.8-20.1); Calc. Creatinine Clearance 63 mL/min (70-130); Calcium 8.5 mg/dL (7.8-10.44); Carbon Dioxide 23 mmol/L (23-31); Chloride 101 mmol/L (98-107); Estimated GFR-MDRD 77; Glucose 146 mg/dL (83-110); Potassium 4.1 mmol/L (3.5-5.1); Sodium 135 mmol/L (136-145)
[2019-11-18 18:09] LABS: Cardiac Risk 5.9 (Less than 4.5)
[2019-11-18] MEDS: PHENobarbital 32.4 MG TAB PO SCH (20:36)
[2019-11-18] MEDS: Divalproex Sodium 125 mg Sprinkle Capsule PO SCH (20:36)
[2019-11-18] MEDS: cefTRIAXone\\ROCEPHIN 1 GM in Sodium Chloride 0.9% 100 ML IVPB SCH (21:50)
[2019-11-18 22:03] LABS: Bacteria/HPF None Seen HPF (None Seen); Bilirubin Negative (Negative); Blood, Urine Negative (Negative); Clarity Clear (Clear); Glucose, Urine (Dipstick) Normal (Negative); Leukocyte 75 Leu/uL (Negative); Nitrite Negative (Negative); Protein, Urine (Dipstick) Negative (Neg-Trace); Squamous Epithelial 0-3 HPF (0-3); Urobilinogen Normal mg/dL (Less than 2)
[2019-11-18 22:04] LABS: Urine Culture Reflex Yes Yes
--- NOTE | 2019-11-19 01:08 | HP ---
CHIEF COMPLAINT: Left-sided weakness and altered mentation. HISTORY OF PRESENT ILLNESS: A 73-year-old female residing at the [facility] facility, noted to have severe left-sided weakness and evaluated at [facility]. Symptoms started roughly 1 week ago with mostly left side weakness. When she was evaluated at [facility]. The CT of the head showed low-density area in the right temporal lobe that may represent subacute chronic infarction and right anterior frontal lobe white matter changes related to remote ischemic event, chronic small-vessel changes. With this evaluation, patient is transferred to the [facility] for further care. During my evaluation, patient is moving her right upper extremity spontaneously. Both lower extremities have strength, but she is not following any commands. She has a right side facial droop as well as right upper extremity is flaccid. The chart came from [facility] has been reviewed and it appears that she presented with altered mentation as well as severe motor deficits on her left side upper and lower and decreased mental status since 9 a.m. REVIEW OF SYSTEMS: Not obtainable. ALLERGIES: NOT KNOWN. SOCIAL HISTORY: Not obtainable. FAMILY HISTORY: Not obtainable. IMAGING DATA: EKG done shows sinus tachycardia and nonspecific ST-T wave changes. Chest x-ray showed cardiac silhouette within normal limits, mild increase in the perihilar interstitial densities, and calcified lesion in the left upper quadrant seen in the previous abdomen done on December 2017. Again, it is questionable pulmonary edema versus infectious process. PHYSICAL EXAMINATION: GENERAL: Again, the patient is altered. She is not responding verbally for any commands, but she is hemodynamically stable. She is moving the right upper extremity spontaneously and she does not want any exam to be done, kind of physical response. HEENT: Pupils equal, round, and reactive to light. She has poor dentition. She has right facial droop. NEUROLOGIC: Left upper arm flaccid. A complete neuro exam is not performed. CARDIOVASCULAR: Regular rate and rhythm without murmurs, rubs, or gallops. LUNGS: Clear to auscultation bilaterally without wheezing, rales, or rhonchi. ABDOMEN: Soft, nontender, nondistended. Good bowel sounds. GENITOURINARY: She has a diaper. LABORATORY DATA: CBC with white count of 8.3, hemoglobin 14.3, platelets are 197. CPK is 85. Lactic acid is 3.9. UA shows cloudy and leukocytes as well as nitrite positive. Troponin is less than 0.01. IMPRESSION AND PLAN: This is a 73-year-old female, transferred from a [facility] with, 1. Subacute versus chronic infarction in right temporal lobe. 2. Left dense hemiparesis. 3. Dysphagia. 4. Metabolic encephalopathy. The patient is admitted in the telemetry monitoring, ischemic workup including MRI, MRA, as well as 2D echo. Physical therapy as well as speech therapy consultation. If stable, we will start her on aspirin and statin as well as JESSIE inhibitor. 5. Urinary tract infection. Follow the cultures. On ceftriaxone for now. 6. DVT prophylaxis - defer anticoagulation until MRI is completed and report reviewed. 7. The patient is currently full code. Job ID: [id number] [facility]
[2019-11-19 04:49] LABS: #Eosinphils 0.1 thou/uL (0.0-0.7); #Lymphocytes 1.5 thou/uL (1.20-3.40); #Monocytes 0.6 thou/uL (0.11-0.59); #Neutrophils 5.9 thou/uL (1.40-6.50); %Basophils 0.2 % (0.0-1.0); %Eosinophils 1.8 % (0.0-10.0); %Lymphocytes 18.1 % (21.0-51.0); %Monocytes 7.7 % (0.0-10.0); %Neutrophils 72.2 % (42.0-75.0); Hemoglobin 14.1 g/dL (12.0-16.0); Mean Corpuscular HGB CONC 33.8 g/dL (32.0-36.0); Mean Corpuscular Hemoglobin 28.8 pg (27.0-31.0); Platelet Count 231 thou/uL (130-400); RBC Distribution Width 13.3 % (11.5-14.5); White Blood Cell (WBC) Count 8.2 thou/uL (4.8-10.8)
[2019-11-19 04:58] LABS: Anion Gap 13 mmol/L (10-20); BUN (Urea Nitrogen) 16 mg/dL (9.8-20.1); Calc. Creatinine Clearance 63 mL/min (70-130); Calcium 8.7 mg/dL (7.8-10.44); Carbon Dioxide 21 mmol/L (23-31); Chloride 96 mmol/L (98-107); Estimated GFR-MDRD 77; Glucose 183 mg/dL (83-110); Potassium 4.1 mmol/L (3.5-5.1); Sodium 126 mmol/L (136-145)
[2019-11-19] MEDS ORDERED: Lorazepam 2 MG/ML VIAL SLOW IVP PRN (08:40)
[2019-11-19] MEDS: Ferrous Sulfate 325 MG TAB PO SCH ×2 (10:24→16:17)
[2019-11-19] MEDS: Docusate 100 MG CAP PO SCH (10:25)
[2019-11-19] MEDS: metFORMIN 500 MG TAB PO SCH ×2 (10:25→16:17)
[2019-11-19] MEDS: Divalproex Sodium 125 mg Sprinkle Capsule PO SCH ×4 (10:34→23:03)
--- NOTE | 2019-11-19 10:39 | MRI ---
EXAM: MRI of the brain without and with contrast HISTORY: Right-sided weakness and stroke COMPARISON: None TECHNIQUE: Multiplanar multisequence MR images were obtained of the brain without and with IV contras t. FINDINGS: There are 2 separate areas of confluent infarction. There is a large confluent area of restricted dif fusion and high FLAIR signal in the right MCA distribution. This predominantly involves the temporal lobe. There is also a fairly large white matter watershed area of restricted diffusion and h igh FLAIR signal in the right frontal lobe. There are scattered foci of high T2/FLAIR signal in the subcortical and periventricular white matter, likely secondary to small vessel ischemic disease. No hydronephrosis. No extra-axial fluid collection or intracranial hemorrhage. The expected flow voids are present. Corpus callosum, pituitary, and craniocervical junction are within normal limits. The calvarium and overlying soft tissues are unremarkable. Fluid is seen in the bilateral mastoid air cells. IMPRESSION: 1. Acute right MCA distribution infarction 2. Watershed infarction involving the white matter of the right frontal lobe.
[2019-11-19] MEDS: Sodium Chloride 0.9% 1,000 ML IV SCH ×2 (11:41→23:02)
--- NOTE | 2019-11-19 11:49 | MRI ---
MRA magnetic resonance angiogram head noncontrast: DATE: 11/19/2019 HISTORY: 73-year-old female with acute stroke. TECHNIQUE: 3-D srle-op-ofsens MRA acquired through [facility]. Source images and 3-D MIP reconstructions e valuated. FINDINGS: Patient was unable to remain motionless for the study, and there is significant motion artifact degra ding the images. This is especially severe from the superior portions of the carotid siphons through the level of the M1 segments of the middle cerebral arteries and their proximal branches. The re is also signal dropout involving the proximal portions of the intracranial vertebral arteries. There is no high-grade stenosis of the petrous carotid arteries, distal intracranial vertebral arteri es, or basilar artery. M1 segment of the right middle cerebral artery appears very attenuated. On the thin slice T1 MPR postcontrast images of the MRI, attenuation of the M1 segment of the right midd le cerebral artery and the right carotid terminus, are also noted, and therefore this is real rather than entirely due to motion artifact. Are fewer and more attenuated branches beyond the M2 lev el of the right middle cerebral artery, compared to the more normal-appearing distal branches of the contralateral left middle cerebral artery. There is very difficult to evaluate the bilateral distal A1 segments of the anterior cerebral arterie s and the proximal portions of the bilateral A2 segments on this MRA, but it is noted that on the postcontrast MRI, these segments are also very attenuated There is a moderately large contiguous region of cytotoxic edema involving the right temporal lobe an d adjacent portions of the right lower parietal lobe, encroaching upon the parieto-occipital junction. There is mild right to left midline shift of the septum pellucidum. The MRI also shows a moderate blank strip of cytotoxic edema in the right parasagittal upper frontal lobe, including superior frontal gyrus. In addition to the typical parenchymal volume loss of the supratentorial cerebral hemispheres, there is especially severe atrophy of the bilateral cerebellar hemispheres and the riki. IMPRESSION: 1. Suboptimal image quality due to significant patient motion. 2. Significantly diminished flow in the M1 segment of the right middle cerebral artery and its branch es, consistent with high-grade partial occlusion, presumably by thrombus. 3. Moderate-large acute infarction in the right middle cerebral artery territory. 4. Small to moderate-sized acute infarction in right anterior cerebral artery territory. 5. Severe Cerebellar atrophy. There are several possible causes, but the most common ones are chronic ethanol abuse and chronic Dilantin use.
[2019-11-19 11:51] LABS: Anion Gap 17 mmol/L (10-20); BUN (Urea Nitrogen) 15 mg/dL (9.8-20.1); Calc. Creatinine Clearance 63 mL/min (70-130); Calcium 9.1 mg/dL (7.8-10.44); Carbon Dioxide 20 mmol/L (23-31); Chloride 96 mmol/L (98-107); Estimated GFR-MDRD 77; Glucose 196 mg/dL (83-110); Potassium 4.4 mmol/L (3.5-5.1); Sodium 129 mmol/L (136-145)
--- NOTE | 2019-11-19 12:44 | PDOC.HOSPP ---
- Subjective Encounter Date: 11/19/19 Encounter Time: 11:55 Subjective: came back from MRI, had poss. seizure this am - dried blood in the mouth; fragile and somnolent. d/w RN; seen by . - Objective Vital Signs & Weight: Vital Signs (12 hours) Temp Pulse Resp BP Pulse Ox 11/19/19 11:54 98.1 F 76 18 156/76 H 99 11/19/19 07:30 97.3 F L 98 18 165/63 H 96 11/19/19 04:00 98.6 F 95 20 179/87 H 95 Weight Weight 130 lb 4 oz I&O: 11/18/19 11/19/19 11/20/19 06:59 06:59 06:59 Intake Total 120 Output Total 600 Balance -480 Result Diagrams: 11/19/19 04:31 11/19/19 11:02 Additional Labs: Accuchecks 11/19/19 11/19/19 11/18/19 10:27 05:43 21:07 POC Glucose 215 H 182 H 155 H Hospitalist ROS - Medication Medications: Active Medications Generic Name Dose Route Start Last Admin Trade Name Freq PRN Reason Stop Dose Admin Divalproex Sodium 250 mg 11/18/19 21:00 11/18/19 20:36 Depakote Sprinkle PO Not Given HS SHAWN Divalproex Sodium 500 mg 11/19/19 09:00 11/19/19 10:34 Depakote Sprinkle PO 500 mg 09,13 [facility] Administration Docusate Sodium 100 mg 11/19/19 09:00 11/19/19 10:25 Colace PO 100 mg DAILY [facility] Administration Ferrous Sulfate 325 mg 11/19/19 08:00 11/19/19 10:24 Feosol PO 325 mg BID-WM [facility] Administration Ceftriaxone Sodium 1 gm/ 100 mls @ 200 mls/hr 11/18/19 19:00 11/18/19 21:50 Sodium Chloride IVPB 100 mls Q24HR [facility] Administration Levetiracetam 500 mg/ Device 100 mls @ 200 mls/hr 11/19/19 09:00 11/19/19 10: 23 IVPB 100 mls BID [facility] Administration Sodium Chloride 1,000 mls @ 100 mls/hr 11/19/19 09:30 11/19/19 11:41 Normal Saline 0.9% IV 1,000 mls .Q10H [facility] Administration Metformin HCl 1,000 mg 11/19/19 08:00 11/19/19 10:25 Glucophage PO 1,000 mg BID-WM [facility] Administration Pantoprazole Sodium 40 mg 11/19/19 09:00 11/19/19 10:25 Protonix PO 40 mg DAILY [facility] Administration Phenobarbital 97.2 mg 11/18/19 21:00 11/18/19 20:36 Phenobarbital PO Not Given HS [facility] - Exam General Appearance: ill appearing Eye: PERRL ENT: normocephalic atraumatic ENT - other findings: dried blood in the mouth, no obvious lesions. Neck: supple, symmetric Heart: RRR Respiratory: CTAB, normal chest expansion, no tachypnea Gastrointestinal: normal bowel sounds Extremities: no cyanosis Skin: normal turgor Neurological: cranial nerve grossly intact Neurological - other findings: left hemiparesis Hosp A/P - Plan R. MCA infarct - moderate size R. ant cerebral A. Territory infarct Cerebellar atrophy Watershed white matter changes/infarct in R. frontal lobe. HTN urgency Dysphagia HLP with LDL of 170 --better BP control -Fw with Speech rec. -PT c/s placed -starting her on new BP meds, as she is not on any as home regimen -ASA and lipitor started -pending neuro c/s. -echo pending Metabolic encephalopathy -seems resolved -pt this am, able to say few words. Hx of seizure -on keppra IV for now and depakote. -not sure getting EEG at this time any utility, defer to neurologist. DVt ppx - scds full code.
[2019-11-19] MEDS ORDERED: hydrALAZINE 20 MG/ML VIAL SLOW IVP PRN (12:51)
[2019-11-19] MEDS ORDERED: Magnevist 469MG/ML 20 ML VIAL ONE (13:53)
[2019-11-19] MEDS: Aspirin 81 mg Enteric Coated Tablet PO SCH ×2 (14:37→14:51)
[2019-11-19] MEDS ORDERED: Aspirin 300 MG Suppository PR SCH (16:15)
[2019-11-19] MEDS: Carvedilol 6.25 MG TAB PO SCH (16:17)
[2019-11-19] MEDS: cefTRIAXone\\ROCEPHIN 1 GM in Sodium Chloride 0.9% 100 ML IVPB SCH (23:02)
[2019-11-19] MEDS: Atorvastatin Calcium 40 MG TAB PO SCH (23:03)
[2019-11-19] MEDS: Amlodipine 5 MG TAB PO SCH (23:03)
[2019-11-19] MEDS: PHENobarbital 32.4 MG TAB PO SCH (23:04)
[2019-11-20] MEDS ORDERED: Aspirin 81 mg Enteric Coated Tablet PO SCH (09:00)
[2019-11-20] MEDS ORDERED: Metoprolol Tartrate 5 MG/5 ML VIAL IVP PRN (09:00)
[2019-11-20] MEDS: hydrALAZINE 20 MG/ML VIAL SLOW IVP SCH ×3 (09:24→23:46)
[2019-11-20] MEDS: Carvedilol 6.25 MG TAB PO SCH ×2 (09:27→17:15)
[2019-11-20] MEDS: Ferrous Sulfate 325 MG TAB PO SCH ×2 (09:28→17:15)
[2019-11-20] MEDS: metFORMIN 500 MG TAB PO SCH ×2 (09:28→17:15)
[2019-11-20] MEDS: Amlodipine 5 MG TAB PO SCH ×2 (09:29→20:46)
[2019-11-20] MEDS: Aspirin 300 MG Suppository PR SCH (09:29)
[2019-11-20] MEDS: Docusate 100 MG CAP PO SCH (09:30)
[2019-11-20] MEDS: Divalproex Sodium 125 mg Sprinkle Capsule PO SCH ×3 (09:31→20:46)
--- NOTE | 2019-11-20 12:08 | PQF ---
DATE: 11-20-19 ATTN: DR. GRACE CROWE Please exercise your independent, professional judgment in responding to the clarification form. Clinical indicators are provided on the bottom of this form for your review Please check appropriate box(s) [ ] Hyponatremia please specify etiology, if known [ ] Insignificant Lab Values [ ] Other diagnosis [ x] Unable to determine In addition, please specify: Present on Admission (POA): [ ] Yes [ ] No [ ] Unable to determine CLINICAL INDICATORS - SIGNS / SYMPTOMS / LABS / RESULTS AND LOCATION IN EMR: SODIUM: 11-18-19: 135 11-19-19: 126 11-19-19: 129 H&P 11-18-19: SHE PRESENTED WITH ALTERED MENTATION RISK FACTORS / RESULTS AND LOCATION IN EMR: MAR: 11-19-19: COREG PO, ASA H&P 11-18-19: SUBACUTE VS CHRONIC INFARCTION IN R TEMPORAL LOBE, L DENSE HEMIPARESIS, DYSPHAGIA, METABOLIC ENCEPHALOPATHY, UTI TREATMENTS / RESULTS AND LOCATION IN EMR: MAR: 11-19-19: NS IVF (This form is maintained as a part of the permanent medical record) 2014 [employer] All Rights Reserved RAISSA [email or web address] Office: [phone] REYNA
--- NOTE | 2019-11-20 12:48 | PDOC.HOSPP ---
- Subjective Encounter Date: 11/20/19 Encounter Time: 09:45 Subjective: BP high, still NPO, somnolent. u cx no growth. moves r arm only for palpation. - Objective Vital Signs & Weight: Vital Signs (12 hours) Temp Pulse Resp BP BP Pulse Ox 11/20/19 11:34 97.5 F L 90 14 119/59 L 98 11/20/19 09:29 100 11/20/19 09:24 94 186/88 H 11/20/19 07:30 99.5 F 100 16 186/88 H 97 11/20/19 04:00 100.4 F H 99 16 100 Weight Admit Weight 130 lb 4 oz Weight 130 lb 4 oz I&O: 11/19/19 11/20/19 11/21/19 06:59 06:59 06:59 Intake Total 120 Output Total 600 500 Balance -480 -500 Result Diagrams: 11/19/19 04:31 11/19/19 11:02 Additional Labs: Accuchecks 11/20/19 11/20/19 11/19/19 10:54 05:56 16:27 POC Glucose 211 H 191 H 182 H Hospitalist ROS - Medication Medications: Active Medications Generic Name Dose Route Start Last Admin Trade Name Freq PRN Reason Stop Dose Admin Amlodipine Besylate 5 mg 11/19/19 21:00 11/20/19 09:29 Norvasc PO Not Given BID [facility] Aspirin 300 mg 11/20/19 09:00 11/20/19 09:29 Aspirin AK 300 mg QAM [facility] Administration Atorvastatin Calcium 40 mg 11/19/19 21:00 11/19/19 23:03 Lipitor PO Not Given HS [facility] Carvedilol 12.5 mg 11/19/19 17:00 11/20/19 09:27 Coreg PO Not Given BID-WM [facility] Divalproex Sodium 250 mg 11/18/19 21:00 11/19/19 23:03 Depakote Sprinkle PO Not Given HS [facility] Divalproex Sodium 500 mg 11/19/19 09:00 11/20/19 09:31 Depakote Sprinkle PO Not Given 09,13 [facility] Docusate Sodium 100 mg 11/19/19 09:00 11/20/19 09:30 Colace PO Not Given DAILY [facility] Ferrous Sulfate 325 mg 11/19/19 08:00 11/20/19 09:28 Feosol PO Not Given BID-WM [facility] Hydralazine HCl 20 mg 11/20/19 09:00 11/20/19 09:24 Apresoline SLOW IVP 20 mg 0300,0900,1500,2100 [facility] Administration Ceftriaxone Sodium 1 gm/ 100 mls @ 200 mls/hr 11/18/19 19:00 11/19/19 23:02 Sodium Chloride IVPB 100 mls Q24HR [facility] Administration Levetiracetam 500 mg/ Device 100 mls @ 200 mls/hr 11/19/19 09:00 11/20/19 09: 29 IVPB 100 mls BID [facility] Administration Sodium Chloride 1,000 mls @ 100 mls/hr 11/19/19 09:30 11/19/19 23:02 Normal Saline 0.9% IV 1,000 mls .Q10H [facility] Administration Metformin HCl 1,000 mg 11/19/19 08:00 11/20/19 09:28 Glucophage PO Not Given BID-WM [facility] Pantoprazole Sodium 40 mg 11/19/19 09:00 11/20/19 09:30 Protonix PO Not Given DAILY [facility] Phenobarbital 97.2 mg 11/18/19 21:00 11/19/19 23:04 Phenobarbital PO Not Given HS [facility] - Exam General Appearance: ill appearing Eye: PERRL ENT: normocephalic atraumatic Neck: supple Heart: RRR, normal peripheral pulses Respiratory: CTAB Gastrointestinal: normal bowel sounds Extremities - other findings: left hemiparesis Hosp A/P - Plan R. MCA infarct - moderate size R. ant cerebral A. Territory infarct Cerebellar atrophy Watershed white matter changes/infarct in R. frontal lobe. HTN urgency Dysphagia HLP with LDL of 170 --better BP control -Fw with Speech rec. -PT c/s placed -starting her on new BP meds, as she is not on any as home regimen -ASA and lipitor started -pending neuro c/s. -echo pending Metabolic encephalopathy -seems resolved -pt this am, able to say few words. Hx of seizure -on keppra IV for now and depakote. -not sure getting EEG at this time, unsure of utility, defer to neurologist. DVt ppx - scds full code. Hyponatremia - IV NS -urine osm, urine Na, cr As she is still nPO, will schedule BP IV meds fw on the labs ordered. b12,folate, vit D etc. will remind for neuro consult.
[2019-11-20 14:26] LABS: Thyroid Stimulating Hormone 4.7153 uIU/mL (0.35-4.94)
[2019-11-20] MEDS: Sodium Chloride 0.9% 1,000 ML IV SCH ×2 (15:13→23:46)
[2019-11-20] MEDS: cefTRIAXone\\ROCEPHIN 1 GM in Sodium Chloride 0.9% 100 ML IVPB SCH (18:26)
[2019-11-20 19:17] LABS: Bacteria/HPF None Seen HPF (None Seen); Bilirubin Negative (Negative); Blood, Urine Negative (Negative); Clarity Clear (Clear); Glucose, Urine (Dipstick) Normal (Negative); Leukocyte 25 Leu/uL (Negative); Nitrite Negative (Negative); Protein, Urine (Dipstick) 20 mg/dL (Neg-Trace); Squamous Epithelial 0-3 HPF (0-3); Urobilinogen Normal mg/dL (Less than 2)
[2019-11-20 19:18] LABS: Urine Culture Reflex Yes Yes
[2019-11-20] MEDS: levETIRAcetam In NaCl (Iso-Os) 1,000 MG in Premix Bag 1 BAG IVPB SCH (20:45)
[2019-11-20] MEDS: Atorvastatin Calcium 40 MG TAB PO SCH (20:46)
[2019-11-20] MEDS: PHENobarbital 32.4 MG TAB PO SCH (20:46)
--- NOTE | 2019-11-21 00:35 | CON ---
DATE OF CONSULTATION: 11/20/2019 CONSULTING PHYSICIAN: Hospitalist Service. IMPRESSION: 1. Acute right temporal stroke with extensive small vessel ischemic changes in a prior right frontal stroke. The patient is severely debilitated and will likely require PEG tube placement. 2. Seizure disorder. 3. Hyperlipidemia. 4. Mental retardation. 5. Diabetes. 6. Hypertension. 7. Peptic ulcer disease with a prior history of GI bleed in 2018. PLAN: 1. Aspirin 81 mg per day. 2. Statin. 3. PEG tube placement. 4. Return to residential. HISTORY OF PRESENT ILLNESS: Ms. Willis is a 73-year-old woman, who is a residential resident. She was transferred after having a change of mental status. Her CT revealed subacute right temporal lobe infarct. Her cholesterol ratio was 5.9. Her H and H were in normal range. Her echocardiogram shows normal ejection fraction of 65% to 70%. She has not had any seizure activity. She is currently on Depakote, Keppra, and phenobarbital. She otherwise remain stable since admission. She was admitted two years ago with drop in her H and H related to peptic ulcer. This was cauterized and apparently things have been stable since what I can gather from the records. PAST MEDICAL HISTORY: As listed above. ALLERGIES: NUMEROUS. SOCIAL HISTORY: See residential resident. FAMILY HISTORY: Unknown. REVIEW OF SYSTEMS: Not obtainable. PHYSICAL EXAMINATION: VITAL SIGNS: Stable. She has been afebrile. HEENT: Pupils equal. Conjunctivae clear. Oropharynx clear. Poor dentition. NECK: Supple. No lymphadenopathy. EXTREMITIES: No cyanosis or edema. NEUROLOGIC: She was nonverbal. Face appeared to be symmetric. She seemed to have symmetric resistance to manipulation of her extremities. Plantar responses were upgoing bilaterally. No abnormal movements were seen. IMAGING STUDIES: EKG showed sinus tachycardia. SUMMARY: This woman presented with recurrent stroke. She has been off antiplatelet therapy. I assume secondary to her prior GI bleed, it would appear prudent to restart low-dose aspirin and statin to address her hyperlipidemia. She is not a candidate for rehab. She will likely need a PEG tube placed. Job ID: [id number]
[2019-11-21] MEDS: hydrALAZINE 20 MG/ML VIAL SLOW IVP SCH ×4 (04:06→22:00)
[2019-11-21] MEDS: Aspirin 300 MG Suppository PR SCH (08:41)
[2019-11-21] MEDS: levETIRAcetam In NaCl (Iso-Os) 1,000 MG in Premix Bag 1 BAG IVPB SCH ×2 (08:43→22:00)
[2019-11-21] MEDS: Carvedilol 6.25 MG TAB PO SCH ×2 (08:43→16:03)
[2019-11-21] MEDS: Divalproex Sodium 125 mg Sprinkle Capsule PO SCH ×3 (08:44→22:00)
[2019-11-21] MEDS: Amlodipine 5 MG TAB PO SCH ×2 (08:44→22:00)
[2019-11-21] MEDS: Ferrous Sulfate 325 MG TAB PO SCH ×2 (08:44→16:02)
[2019-11-21] MEDS: Sodium Chloride 0.9% 1,000 ML IV SCH ×2 (08:44→16:10)
[2019-11-21] MEDS: metFORMIN 500 MG TAB PO SCH ×2 (08:44→16:03)
[2019-11-21] MEDS: Docusate 100 MG CAP PO SCH (08:45)
--- NOTE | 2019-11-21 13:43 | PDOC.HOSPP ---
- Subjective Encounter Date: 11/21/19 Encounter Time: 12:10 Subjective: more alert today, talkt o ST and may be we can start her on soft diet. still intermittent somnolent. no family at bedisde. will d/w palliative, neuro recommeded peg, pt getting ASA SC. - Objective Vital Signs & Weight: Vital Signs (12 hours) Temp Pulse Resp BP BP Pulse Ox 11/21/19 11:12 98.2 F 98 16 111/55 L 96 11/21/19 08:45 96 11/21/19 08:41 97 114/56 L 11/21/19 07:36 98.3 F 96 16 114/56 L 96 11/21/19 04:06 96 11/21/19 04:00 99.7 F H 102 H 20 134/72 93 L Weight Admit Weight 130 lb 4 oz Weight 130 lb 4 oz I&O: 11/20/19 11/21/19 11/22/19 06:59 06:59 06:59 Output Total 500 Balance -500 Result Diagrams: 11/19/19 04:31 11/19/19 11:02 Additional Labs: Accuchecks 11/21/19 11/21/19 11/20/19 10:50 06:06 20:15 POC Glucose 194 H 191 H 183 H 11/20/19 17:14 POC Glucose 195 H Hospitalist ROS - Medication Medications: Active Medications Generic Name Dose Route Start Last Admin Trade Name Freq PRN Reason Stop Dose Admin Amlodipine Besylate 5 mg 11/19/19 21:00 11/21/19 08:44 Norvasc PO Not Given BID [facility] Aspirin 300 mg 11/20/19 09:00 11/21/19 08:41 Aspirin SC 300 mg QAM [facility] Administration Atorvastatin Calcium 40 mg 11/19/19 21:00 11/20/19 20:46 Lipitor PO Not Given HS [facility] Carvedilol 12.5 mg 11/19/19 17:00 11/21/19 08:43 Coreg PO Not Given BID-WM [facility] Divalproex Sodium 250 mg 11/18/19 21:00 11/20/19 20:46 Depakote Sprinkle PO Not Given HS [facility] Divalproex Sodium 500 mg 11/19/19 09:00 11/21/19 10:17 Depakote Sprinkle PO 500 mg 09,13 [facility] Administration Docusate Sodium 100 mg 11/19/19 09:00 11/21/19 08:45 Colace PO Not Given DAILY [facility] Ferrous Sulfate 325 mg 11/19/19 08:00 11/21/19 08:44 Feosol PO Not Given BID-[facility] Hydralazine HCl 20 mg 11/20/19 09:00 11/21/19 08:41 Apresoline SLOW IVP 20 mg 0300,0900,1500,2100 [facility] Administration Ceftriaxone Sodium 1 gm/ 100 mls @ 200 mls/hr 11/18/19 19:00 11/20/19 18:26 Sodium Chloride IVPB 100 mls Q24HR [facility] Administration Sodium Chloride 1,000 mls @ 100 mls/hr 11/19/19 09:30 11/21/19 08:44 Normal Saline 0.9% IV Not Given .Q10H [facility] Levetiracetam 1,000 mg/ Device 100 mls @ 200 mls/hr 11/20/19 21:00 11/21/19 08:43 IVPB 100 mls BID [facility] Administration Lorazepam 2 mg 11/19/19 08:40 11/20/19 14:59 Ativan SLOW IVP 2 mg Q4H PRN Administration BREAKTHROUGH SEIZURES Metformin HCl 1,000 mg 11/19/19 08:00 11/21/19 08:44 Glucophage PO Not Given BID-[facility] Pantoprazole Sodium 40 mg 11/19/19 09:00 11/21/19 08:45 Protonix PO Not Given DAILY [facility] Phenobarbital 97.2 mg 11/18/19 21:00 11/20/19 20:46 Phenobarbital PO Not Given [facility] - Exam General Appearance: NAD Heart: RRR Respiratory: CTAB Gastrointestinal: normal bowel sounds Extremities: no cyanosis Hosp A/P - Plan R. MCA infarct - moderate size R. ant cerebral A. Territory infarct Cerebellar atrophy Watershed white matter changes/infarct in R. frontal lobe. HTN urgency Dysphagia HLP with LDL of 170 --better BP control -Fw with Speech rec. -PT c/s placed -starting her on new BP meds, as she is not on any as home regimen -ASA and lipitor started -pending neuro c/s. -echo pending Metabolic encephalopathy -seems resolved -pt this am, able to say few words. Hx of seizure -on keppra IV for now and depakote. -not sure getting EEG at this time, unsure of utility, defer to neurologist. DVt ppx - scds full code. Hyponatremia - IV NS -urine osm, urine Na, cr As she is still nPO, will schedule BP IV meds fw on the labs ordered. b12,folate, vit D etc. will remind for neuro consult. Pt has niece. based on her, pt likes food. PEG evaluation was not favoured in 2018 2nd episode of stroke with remote hx of stroke - on ASA SC - neuro followed, ina'd PEG Hyponatermia- Urine - appropriate fn.. as osmolality > 100; another IVF NS and na level in am if in nl range, plan for dc to SNF meanwhile, palliative will reach out to niece, and see whether she/MOP open for PEG and to address code status.
[2019-11-21 14:51] LABS: Anion Gap 17 mmol/L (10-20); BUN (Urea Nitrogen) 18 mg/dL (9.8-20.1); Calc. Creatinine Clearance 58 mL/min (70-130); Calcium 8.5 mg/dL (7.8-10.44); Carbon Dioxide 16 mmol/L (23-31); Chloride 107 mmol/L (98-107); Estimated GFR-MDRD 69; Glucose 181 mg/dL (83-110); Potassium 3.6 mmol/L (3.5-5.1); Sodium 136 mmol/L (136-145)
[2019-11-21] MEDS: cefTRIAXone\\ROCEPHIN 1 GM in Sodium Chloride 0.9% 100 ML IVPB SCH (18:03)
[2019-11-21] MEDS: PHENobarbital 32.4 MG TAB PO SCH (22:00)
[2019-11-22] MEDS: Atorvastatin Calcium 40 MG TAB PO SCH ×2 (01:05→21:02)
[2019-11-22] MEDS ORDERED: HumaLOG 300 UNITS/3 ML VIAL SC PRN (02:28)
[2019-11-22] MEDS ORDERED: Dextrose 50% Abboject 50 ML SYRINGE SLOW IVP PRN (02:28)
[2019-11-22] MEDS ORDERED: Dextrose 5% in Water 1,000 ML IV PRN (02:28)
[2019-11-22] MEDS: hydrALAZINE 20 MG/ML VIAL SLOW IVP SCH ×4 (04:27→21:02)
[2019-11-22] MEDS: Sodium Chloride 0.9% 1,000 ML IV SCH ×2 (05:39→16:26)
[2019-11-22] MEDS: HumaLOG 300 UNITS/3 ML VIAL SC PRN ×3 (06:18→18:12)
[2019-11-22] MEDS: Amlodipine 5 MG TAB PO SCH ×2 (08:29→21:00)
[2019-11-22] MEDS: Carvedilol 6.25 MG TAB PO SCH ×2 (08:29→16:18)
[2019-11-22] MEDS: Divalproex Sodium 125 mg Sprinkle Capsule PO SCH ×2 (08:36→13:03)
[2019-11-22] MEDS: Aspirin 81 mg Enteric Coated Tablet PO SCH (08:36)
[2019-11-22] MEDS: Ferrous Sulfate 325 MG TAB PO SCH ×2 (08:37→16:18)
[2019-11-22] MEDS: metFORMIN 500 MG TAB PO SCH ×2 (08:37→16:18)
[2019-11-22] MEDS: levETIRAcetam In NaCl (Iso-Os) 1,000 MG in Premix Bag 1 BAG IVPB SCH (08:38)
[2019-11-22] MEDS: Docusate 100 MG CAP PO SCH (08:38)
[2019-11-22 09:23] LABS: Anion Gap 15 mmol/L (10-20); BUN (Urea Nitrogen) 16 mg/dL (9.8-20.1); Calc. Creatinine Clearance 64 mL/min (70-130); Calcium 8.6 mg/dL (7.8-10.44); Carbon Dioxide 16 mmol/L (23-31); Chloride 111 mmol/L (98-107); Estimated GFR-MDRD 78; Glucose 171 mg/dL (83-110); Potassium 3.7 mmol/L (3.5-5.1); Sodium 138 mmol/L (136-145)
--- NOTE | 2019-11-22 12:23 | PDOC.HOSPP ---
- Subjective Encounter Date: 11/22/19 Encounter Time: 10:00 Subjective: pt is talking on her own, more alert today, but not responding to my questions. - Objective Vital Signs & Weight: Vital Signs (12 hours) Temp Pulse Resp BP BP Pulse Ox 11/22/19 11:20 97.6 F 79 18 116/56 L 96 11/22/19 08:36 96 11/22/19 08:30 84 11/22/19 08:29 84 11/22/19 07:39 98.9 F 84 14 99/50 L 96 11/22/19 04:27 91 112/56 L 11/22/19 03:39 98.6 F 91 18 112/56 L 95 Weight Admit Weight 130 lb 4 oz Weight 130 lb 4 oz I&O: 11/21/19 11/22/19 11/23/19 06:59 06:59 06:59 Intake Total 586 Output Total 200 Balance 386 Result Diagrams: 11/19/19 04:31 11/22/19 08:55 Additional Labs: Accuchecks 11/22/19 11/22/19 11/21/19 10:42 05:47 19:34 POC Glucose 182 H 219 H 270 H 11/21/19 16:55 POC Glucose 280 H Hospitalist ROS - Medication Medications: Active Medications Generic Name Dose Route Start Last Admin Trade Name Freq PRN Reason Stop Dose Admin Acetaminophen 650 mg 11/18/19 17:18 11/21/19 16:12 Tylenol PO 650 mg Q4H PRN Administration Headache/Fever/Mild Pain (1-3) Amlodipine Besylate 5 mg 11/19/19 21:00 11/22/19 08:29 Norvasc PO Not Given BID [facility] Aspirin 81 mg 11/22/19 09:00 11/22/19 08:36 Ecotrin PO 81 mg DAILY [facility] Administration Atorvastatin Calcium 40 mg 11/19/19 21:00 11/22/19 01:05 Lipitor PO 40 mg HS [facility] Administration Carvedilol 12.5 mg 11/19/19 17:00 11/22/19 08:29 Coreg PO Not Given BID-[facility] Cholecalciferol 2,000 units 11/22/19 09:00 11/22/19 08:37 Vitamin D3 PO 2,000 units DAILY [facility] Administration Divalproex Sodium 250 mg 11/18/19 21:00 11/21/19 22:00 Depakote Sprinkle PO 250 mg HS [facility] Administration Divalproex Sodium 500 mg 11/19/19 09:00 11/22/19 08:36 Depakote Sprinkle PO 500 mg 09,13 [facility] Administration Docusate Sodium 100 mg 11/19/19 09:00 11/22/19 08:38 Colace PO 100 mg DAILY [facility] Administration Ferrous Sulfate 325 mg 11/19/19 08:00 11/22/19 08:37 Feosol PO 325 mg BID-WM [facility] Administration Hydralazine HCl 20 mg 11/20/19 09:00 11/22/19 08:30 Apresoline SLOW IVP Not Given 0300,0900,1500,2100 [facility] Ceftriaxone Sodium 1 gm/ 100 mls @ 200 mls/hr 11/18/19 19:00 11/21/19 18:03 Sodium Chloride IVPB 100 mls Q24HR [facility] Administration Sodium Chloride 1,000 mls @ 100 mls/hr 11/19/19 09:30 11/22/19 05:39 Normal Saline 0.9% IV 1,000 mls .Q10H [facility] Administration Levetiracetam 1,000 mg/ Device 100 mls @ 200 mls/hr 11/20/19 21:00 11/22/19 08:38 IVPB 100 mls BID [facility] Administration Insulin Human Lispro 0 units 11/22/19 02:28 11/22/19 11:43 Humalog SC 2 unit .MILD SLIDING SCALE PRN Administration Mild Correctional Scale Lorazepam 2 mg 11/19/19 08:40 11/20/19 14:59 Ativan SLOW IVP 2 mg Q4H PRN Administration BREAKTHROUGH SEIZURES Metformin HCl 1,000 mg 11/19/19 08:00 11/22/19 08:37 Glucophage PO 1,000 mg BID-WM [facility] Administration Pantoprazole Sodium 40 mg 11/19/19 09:00 11/22/19 08:37 Protonix PO 40 mg DAILY [facility] Administration Phenobarbital 97.2 mg 11/18/19 21:00 11/21/19 22:00 Phenobarbital PO 97.2 mg HS [facility] Administration - Exam General Appearance: NAD General - other findings: talking to herself, AOx0 ENT - other findings: poor dentition Heart: RRR Respiratory: CTAB Gastrointestinal: normal bowel sounds Hosp A/P - Plan R. MCA infarct - moderate size R. ant cerebral A. Territory infarct Cerebellar atrophy Watershed white matter changes/infarct in R. frontal lobe. HTN urgency Dysphagia HLP with LDL of 170 --better BP control -Fw with Speech rec. -PT c/s placed -starting her on new BP meds, as she is not on any as home regimen -ASA and lipitor started -pending neuro c/s. -echo pending Metabolic encephalopathy -seems resolved -pt this am, able to say few words. Hx of seizure -on keppra IV for now and depakote. -not sure getting EEG at this time, unsure of utility, defer to neurologist. DVt ppx - scds full code. Hyponatremia - IV NS -urine osm, urine Na, cr As she is still nPO, will schedule BP IV meds fw on the labs ordered. b12,folate, vit D etc. will remind for neuro consult. Pt has niece. based on her, pt likes food. PEG evaluation was not favoured in 2018 2nd episode of stroke with remote hx of stroke - on ASA LA - neuro followed, ina'd PEG Hyponatermia- Urine - appropriate fn.. as osmolality > 100; another IVF NS and na level in am if in nl range, plan for dc to SNF meanwhile, palliative will reach out to niece, and see whether she/MOP open for PEG and to address code status. Hyponatremia resolved updated palliative, given her more alertness today, there is still hope, that pt should be able to have PO intake. not urgent at this time for PEG evaluation, if she shannon'd to remain more alert. will swich keppra to 500mg PO bid and cw home depakote. see how she does, plan for dc tomorrow.
[2019-11-22] MEDS: cefTRIAXone\\ROCEPHIN 1 GM in Sodium Chloride 0.9% 100 ML IVPB SCH (18:13)
[2019-11-22] MEDS ORDERED: Divalproex Sodium 125 mg Sprinkle Capsule PO SCH (21:00)
[2019-11-22] MEDS: levETIRAcetam 500 mg/5 ml Oral Solution PO SCH (21:02)
[2019-11-22] MEDS: PHENobarbital 32.4 MG TAB PO SCH (21:13)
[2019-11-23] MEDS: hydrALAZINE 20 MG/ML VIAL SLOW IVP SCH ×2 (02:54→08:21)
[2019-11-23] MEDS: Sodium Chloride 0.9% 1,000 ML IV SCH ×2 (03:11→15:32)
[2019-11-23] MEDS: levETIRAcetam 500 mg/5 ml Oral Solution PO SCH (08:20)
[2019-11-23] MEDS: Aspirin 81 mg Enteric Coated Tablet PO SCH (08:21)
[2019-11-23] MEDS: Amlodipine 5 MG TAB PO SCH (08:21)
[2019-11-23] MEDS: Docusate 100 MG CAP PO SCH (08:22)
[2019-11-23] MEDS: metFORMIN 500 MG TAB PO SCH (08:22)
[2019-11-23] MEDS: Ferrous Sulfate 325 MG TAB PO SCH (08:22)
[2019-11-23] MEDS: Carvedilol 6.25 MG TAB PO SCH (08:22)
[2019-11-23] MEDS ORDERED: Divalproex Sodium 125 mg Sprinkle Capsule PO SCH (09:00)
[2019-11-23 09:57] LABS: Anion Gap 14 mmol/L (10-20); BUN (Urea Nitrogen) 17 mg/dL (9.8-20.1); Calc. Creatinine Clearance 61 mL/min (70-130); Calcium 8.3 mg/dL (7.8-10.44); Carbon Dioxide 16 mmol/L (23-31); Chloride 115 mmol/L (98-107); Estimated GFR-MDRD 75; Glucose 225 mg/dL (83-110); Potassium 3.5 mmol/L (3.5-5.1); Sodium 141 mmol/L (136-145)
[2019-11-23] MEDS: HumaLOG 300 UNITS/3 ML VIAL SC PRN (11:34)
[2019-11-23 15:46] VITALS: BP 105/56; TEMP 97.7
--- NOTE | 2019-11-24 00:05 | DIS ---
DATE OF ADMISSION: 11/18/2019 DATE OF DISCHARGE: 11/23/2019 DISCHARGE DIAGNOSES: 1. Right MCA infarct, moderate-size. Right anterior cerebral artery territory infarct and cerebral atrophy, watershed white matter changes with infarct in the right frontal lobe. 2. Hypertensive urgency. 3. Dysphagia. 4. Hyperlipidemia with LDL of 170. 5. Metabolic encephalopathy, that is resolved. 6. History of seizure and need to add third antiepileptic during this hospitalization. 7. Hyponatremia, that is resolved. CONSULT: Palliative as well as neurologist. DISCHARGE MEDICATIONS: 1. Aspirin 81 mg daily. 2. Lipitor 20 mg at bedtime. 3. Depakote 500 mg twice a day and 250 mg at bedtime. 4. Insulin NovoLog 100 units before and at bedtime. 5. Lantus 10 units subcu daily. 6. Keppra 500 mg twice a day. 7. Phenobarbital 97.2 mg at bedtime. 8. Metformin 500 mg twice a day. 9. Ferrous sulfate 220 mg twice a day. 10. Nexium 40 mg daily. 11. Docusate 100 mg daily. PHYSICAL EXAMINATION: VITAL SIGNS: On the day of discharge, she is at her baseline mumbling, but she is more awake and alert. VITAL SIGNS: Temperature 97.3, pulse is 85, blood pressure 104/51. CARDIOVASCULAR: Regular rate and rhythm without murmurs, rubs, or gallops. LUNGS: Clear to auscultation bilaterally. Wheezing without rales or rhonchi. ABDOMEN: Soft with good bowel sounds. EXTREMITIES: No pitting edema. HOSPITAL COURSE: This is a 73-year-old female with a history of seizure and noted to have severe left-sided weakness at the [facility] and brought in by the ER. CT did show a low-density area in the right temporal lobe and representing subacute chronic infarct. MRI confirmed the same as discussed above. Neurologist followed her. The patient was started on aspirin and Lipitor. The patient had another episode of seizure during her hospitalization. Initially, started on Keppra. For a few days, she was quite somnolent and did not do well. At that time, Palliative consult initiated. In the past, the family had discussed the possibility for PEG tube evaluation. It also appears that the patient able to eat when she is more alert. Speech Therapy followed with us and recommended further palliative approach as well. She has slowly recovered however, her mentation was quite labile. As she became more alert, she is able to have some soft diet; however, her p.o. intake is quite depend on her mental status as well as other ongoing health issues. Based on her comorbidities and severe hemiparesis and dysphagia, the patient may not be a strong candidate for PEG tube evaluation as well. In this context, the idea has been dropped. Indeed, may not be useful to provide any quality of life the PEG placement. Anyway, this is early to open for future consideration. I discussed with the neurologist and okay to continue with her Karen upon discharge as after adding those medication, she was seizure free for the last 2 days and she is hemodynamically stable to discharge back to her snf facility. DISCHARGE INSTRUCTION: 1. Activity with supervision. 2. Mechanical soft diet. 3. Follow up with the primary care physician in one week. TIME SPENT: Discharge time took over 30 minutes. Job ID: [id number] MTDD
== END 2019-11-23 16:43 | DRG 64 ==
LOC: 2SE 14:45
PROVIDERS: ADMIT Internal Medicine; ATTEND Internal Medicine
DX: I63.511 Cerebral infarction due to unspecified occlusion or stenosis of right middle cerebral artery (principal); G93.41 Metabolic encephalopathy; E87.1 Hypo-osmolality and hyponatremia; G81.94 Hemiplegia, unspecified affecting left nondominant side; N39.0 Urinary tract infection, site not specified; I63.521 Cerebral infarction due to unspecified occlusion or stenosis of right anterior cerebral artery; G31.89 Other specified degenerative diseases of nervous system; I16.0 Hypertensive urgency; R13.10 Dysphagia, unspecified; E78.5 Hyperlipidemia, unspecified; G40.909 Epilepsy, unspecified, not intractable, without status epilepticus; R29.722 NIHSS score 22; R29.810 Facial weakness; F79 Unspecified intellectual disabilities; Z79.899 Other long term (current) drug therapy; Z79.4 Long term (current) use of insulin; R40.2363 Coma scale, best motor response, obeys commands, at hospital admission; R40.2143 Coma scale, eyes open, spontaneous, at hospital admission; R40.2253 Coma scale, best verbal response, oriented, at hospital admission
CPT/HCPCS: 36415; 36416; 70544; 70553; 80048; 80061; 81001; 82306; 82570; 82607; 82746; 83935; 84300; 84443; 85025; 87086; 93306; 95816; 95819; A9579; J0360; J0696; J1953; J2060; J3490

== ENCOUNTER 2020-05-12 14:30 | Inpatient (IN) | payer MEDICARE, MEDICAID, OTHER ==
[2020-05-12] MEDS ORDERED: Iopamidol 370 76% 100 ML VIAL ONE (15:51)
[2020-05-12 16:08] LABS: SARS-CoV-2 NAA Rapid Test DETECTED (NotDetected)
[2020-05-12] MEDS ORDERED: Acetaminophen 325 MG TAB PER TUBE PRN (16:30)
[2020-05-12] MEDS ORDERED: Ondansetron PF 4 MG/2 ML Vial IVP PRN (16:30)
[2020-05-12] MEDS ORDERED: Ondansetron ODT 4 MG TAB PO PRN (16:30)
[2020-05-12] MEDS ORDERED: Sodium Chloride 0.9% 1,000 ML IV SCH (16:30)
[2020-05-12] MEDS ORDERED: Senokot S 8.6-50 MG TAB PO PRN (16:30)
[2020-05-12] MEDS ORDERED: Calcium Carbonate 500 MG ChewTAB PO PRN (16:30)
[2020-05-12] MEDS ORDERED: Acetaminophen 650 MG Suppository PR PRN (16:30)
[2020-05-12] MEDS ORDERED: Dexamethasone 4 mg/ml Vial SLOW IVP SCH (16:30)
--- NOTE | 2020-05-12 16:53 | CT ---
CTA Angio Chest W WO Con History: Shortness of breath Comparison: Radiograph same day for reference Findings: CT angiogram chest performed after the intravenous administration of contrast. 3-D renderin g provided. No proximal segmental pulmonary arterial filling defect. Aortic contour is nonaneurysmal. No signific ant pericardial effusion. Large intraparenchymal calcification of the spleen is unchanged from 2013. Likely cholelithiasis without not well evaluated with possible pericholecystic fluid. Moderate bilateral pleural effusions. Extensive patchy opacities throughout the lungs. No pneumothora x. Impression: 1. No pulmonary embolism. 2. Extensive patchy opacities of the lungs, commonly reported imaging findings of Covid-19 pneumonia. 3. Moderate bilateral pleural effusions. 3. Cholelithiasis with possible pericholecystic fluid although incompletely interrogated. Nonemergent right upper quadrant ultrasound may be beneficial if clinically warranted.
[2020-05-12] MEDS ORDERED: Dextrose 5% in Water 1,000 ML IV PRN (17:25)
[2020-05-12] MEDS ORDERED: Dextrose 50% Abboject 50 ML SYRINGE SLOW IVP PRN (17:25)
[2020-05-12 17:56] LABS: Magnesium 1.5 mg/dL (1.6-2.6); Phosphorus 2.4 mg/dL (2.3-4.7)
[2020-05-12] MEDS ORDERED: Magnesium Sulfate 4 GM in Sodium Chloride 0.9% 250 ML 250 ML IVPB SCH (18:30)
--- NOTE | 2020-05-12 18:31 | PDOC.HHP ---
Hospitalist HPI - History of Present Illness SOB/Hypoxia History of Present Illness: Patient is a 74-year-old senior care resident with history of CVA presented to the emergency room with above complaints. Patient was discharged from this facility last week with a diagnosis of enterococcus UTI with bacteremia. She also had PEG tube placed that admission. She was discharged on antibiotics for 10 more days. Earlier today patient was found to have low oxygen saturation in low 80s at the senior care along with cough, fever and shortness of breath. History is limited due to current mentation. Most of the information was obtained from the ER record. Her vital signs at the emergency room showed temperature 100.1, pulse rate of 110, respiration of 24 with O2 saturation of 93 percent on 2 L nasal cannula. An EKG showed sinus tachycardia. Chest x-ray showed bilateral pneumonia. She was transferred to this facility for Hospital admission. She received antibiotics along with steroids and the outside facility. She was found to have COVID [address] A [address] angiogram of the chest was negative for pulmonary embolism ED Course: VITAL SIGNS TueMay 12, 2020 14:33 RAISSA Pagan Laine BP: 133/82, Pulse: 92, Resp: 22, Temp: 99.7 (Oral), Pain: UTR, O2 sat: 90 on ( Room Air), Time: 05/12/2020 14:33. VITAL SIGNS TueMay 12, 2020 14:37 RAISSA Pagan Laine O2 sat: 94 on (2L Oxygen), Time: 05/12/2020 14:37. VITAL SIGNS TueMay 12, 2020 14:45 RAISSA Pagan Laine BP: 122/71, Pulse: 86, Resp: 36, Pain: UTR, O2 sat: 96 on (2L Oxygen), Time: 14:45. VITAL SIGNS TueMay 12, 2020 15:02 RAISSA Pagan Laine BP: 122/71, Pulse: 87, Resp: 21, Pain: UTR, O2 sat: 96 on (2L Oxygen), Time: 15:02. VITAL SIGNS TueMay 12, 2020 16:30 RAISSA Pagan Laine BP: 124/76, Pulse: 92, Resp: 22, Pain: UTR, O2 sat: 96 on (2L Oxygen), Time: 16:30. VITAL SIGNS TueMay 12, 2020 17:14 RAISSA Pagan Laine BP: 122/74, Pulse: 87, Resp: 23, Pain: utr, O2 sat: 97 on (2L Oxygen), Time: 17:14. Hospitalist ROS - Review of Systems ROS unobtainable: due to mental status - Medication Medications: Home Meds unavailable at this time. Will try to verify with the nursing facility. Hospitalist History - Past Medical History Other Medical History: PAST MEDICAL HISTORY: long term residentbedbound, CVA earlier this year, recent hospitalization for UTI with bacteremia, hypertension, swallow dysfunction status post PEG, coronary artery disease, diabetes mellitus type II , cognitive deficit, chronic hyponatremia, seizure disorder, anxiety, CKD, hyperlipidemia PAST SURGICAL HISTORY: Recent PEG tube placement ALLERGIES: Sulfa, tramadol, nitrofurantoin SOCIAL HISTORY: Currently resides at senior care. Code. Sister is decision maker. Contact number is [phone] or [phone] (Gabbie) FAMILY HISTORY:Cannot obtain due to current mentation - Exam General Appearance: ill appearing Eye: PERRL ENT: normocephalic atraumatic, dry oral mucosa Neck: supple, symmetric, no JVD Heart: no gallops, no rubs Heart - other findings: Tachycardic Respiratory: no wheezes, rales, rhonchi, tachypneic Gastrointestinal: soft, normal bowel sounds, no guarding, no rigidity Gastrointestinal - other findings: PEG tube + Extremities: no cyanosis, no clubbing Psychiatric: somnolent Psychiatric - other findings: Neuro/psych exam limited due to current mentation Hospitalist Results - Labs Result Diagrams: 05/13/20 04:42 05/13/20 04:42 Lab results: Lactic Acid 2.5 mmol/L (0.5-2.2) H 05/12/20 15:34 C-Reactive Protein 20.16 mg/dL (= or < 0.5) H 05/12/20 17:24 Laboratory Tests 04/28/20 05/12/20 05/12/20 20:31 11:15 11:15 WBC Hgb Plt Count D-Dimer Sodium 127 L Potassium 4.9 BUN 18 C-Reactive Protein B-Natriuretic Peptide 229.0 H COVID-19 PCR Not Detected SARS-CoV-2 Rap RNA(RT-PCR) 05/12/20 05/12/20 05/12/20 11:15 14:31 17:24 WBC 12.1 H Hgb 9.5 L Plt Count 578 H D-Dimer Sodium Potassium BUN C-Reactive Protein 20.16 H B-Natriuretic Peptide COVID-19 PCR SARS-CoV-2 Rap RNA(RT-PCR) DETECTED A* 05/12/20 17:24 WBC Hgb Plt Count D-Dimer 1.91 H Sodium Potassium BUN C-Reactive Protein B-Natriuretic Peptide COVID-19 PCR SARS-CoV-2 Rap RNA(RT-PCR) - EKG Interpretation EKG: Sinus tachycardia - reviewed by me - Radiology Interpretation CT scan - chest Status: image reviewed by me Additional Comment: Impression: 1. No pulmonary embolism. 2. Extensive patchy opacities of the lungs, commonly reported imaging findings of Covid-19 pneumonia. 3. Moderate bilateral pleural effusions. 3. Cholelithiasis with possible pericholecystic fluid although incompletely interrogated. Nonemergent right upper quadrant ultrasound may be beneficial if clinically warranted. Chest x-ray Status: image reviewed by me Additional Comment: Bilateral pneumonia Hospitalist H&P A/P - Plan Plan: Toxic metabolic encephalopathy Acute hypoxic respiratory failure/sepsis due to COVID 19 pneumonia Lactic acidosis due to sepsis Recent hospitalization for enterococcus UTI with bacteremia on amoxicillin Stage IV sacral pressure ulcer Hypomagnesemia Chronic hyponatremia Swallow dysfunction with recent PEG tube placement Seizure disorder Coronary artery disease Diabetes mellitus type II History of CVA Dementia Recent EGD showing duodenitis Cholelithiasis Questionable masslike area on the recent CT scanPCP to follow Hypertension Plan: Patient will be monitored in the COVID unit.Hold IV fluids for now. I discussed with infectious disease. Patient will be started on dexamethasone, Remdesivir with convalescent plasma. PEG tube feeding will be restarted. Will resume seizure medications. Add aspirin due to history of CVA. Change Pepcid to PPIs given her recent EGD findings. Consult wound care. Insulin sliding scale. Continue other medications from the nursing facility. O2 supplementation. Add nebulizer treatment. Recheck labs in a.m. Replace magnesium. Resume po diet when mentation improvesplease note patient was on oral Modified feeds last discharge per speech therapy
[2020-05-12 18:40] LABS: Lactic Acid 1.8 mmol/L (0.5-2.2)
[2020-05-12 18:47] LABS: Troponin I Less than 0.010 ng/mL (< 0.028)
[2020-05-12] MEDS ORDERED: REMDESIVIR (EUA) 200 MG in Sodium Chloride 0.9% 250 ML 210 ML IV SCH (20:00)
[2020-05-12 20:12] VITALS: BMI 19.3
[2020-05-12] MEDS ORDERED: Famotidine/PF 20 mg/2ml Vial SLOW IVP SCH (21:00)
[2020-05-12] MEDS: Enoxaparin Sodium 30 MG/0.3 ML SYRINGE SC SCH (22:40)
[2020-05-12] MEDS: Famotidine 20 MG TAB PO SCH (22:41)
[2020-05-12] MEDS: Insulin Regular 300 UNITS/3 ML VIAL SC PRN (22:41)
[2020-05-13 05:30] LABS: Lactic Acid 2.1 mmol/L (0.5-2.2)
[2020-05-13 05:36] LABS: Hemoglobin 9.3 g/dL (12.0-16.0); Mean Corpuscular HGB CONC 32.4 g/dL (32.0-36.0); Mean Corpuscular Hemoglobin 26.7 pg (27.0-31.0); Mean Corpuscular Volume 82.6 fL (78.0-98.0); Mean Platelet Volume 7.1 fL (7.4-10.4); Platelet Count 551 thou/uL (130-400); RBC Distribution Width 15.5 % (11.5-14.5); Red Blood Cell (RBC) Count 3.48 mill/uL (4.20-5.40); White Blood Cell (WBC) Count 10.6 thou/uL (4.8-10.8)
[2020-05-13 05:39] LABS: Band 13 % (5-11); Lymphocytes 19 % (21-51); MDiff Complete? YES; Metamyelocyte 1 % (0-0); Monocytes 6 % (0-10); Myelocyte 4 % (0-0); Neutrophil 57 % (42-75); Platelet Morphology Comment Appears Increased
[2020-05-13 05:41] LABS: ALT (SGPT) 17 U/L (8-55); AST (SGOT) 32 U/L (5-34); Albumin 2.6 g/dL (3.4-4.8); Alkaline Phosphatase 119 U/L (40-110); Anion Gap 15 mmol/L (10-20); BUN (Urea Nitrogen) 17 mg/dL (9.8-20.1); Bilirubin, Total Less than 0.2 mg/dL (0.2-1.2); Calc. Creatinine Clearance 67 mL/min (70-130); Calcium 8.2 mg/dL (7.8-10.44); Carbon Dioxide 24 mmol/L (23-31); Chloride 97 mmol/L (98-107); Estimated GFR-MDRD 86; Globulin 4.6 g/dL (2.4-3.5); Glucose 188 mg/dL (83-110); Magnesium 2.7 mg/dL (1.6-2.6); Phosphorus 2.1 mg/dL (2.3-4.7); Protein, Total 7.2 g/dL (6.0-8.3); Sodium 131 mmol/L (136-145)
[2020-05-13] MEDS: Insulin Regular 300 UNITS/3 ML VIAL SC PRN ×3 (06:04→18:55)
[2020-05-13] MEDS ORDERED: Acetaminophen/Codeine 30-300mg Tablet PER TUBE PRN (06:53)
[2020-05-13] MEDS ORDERED: Non-Formulary Item 1 EACH (Ipratropium/Albuterol Sulfate [Combivent Respimat] 1 PUFF) INH PRN (06:53)
[2020-05-13] MEDS ORDERED: ALBUTEROL SULFATE IH PRN (06:53)
[2020-05-13] MEDS ORDERED: Docusate 100 MG CAP PER TUBE PRN (06:53)
[2020-05-13] MEDS ORDERED: Sodium Phosphate 15 MMOL in Sodium Chloride 0.9% 250 ML 250 ML IVPB SCH (07:00)
[2020-05-13] MEDS ORDERED: Albuterol Sulfate 2.5 mg/3 ml Neb NEB PRN (07:05)
[2020-05-13] MEDS ORDERED: PROVENTIL INHALER 6.7 G (200 INHALATIONS) INH PRN (07:11)
[2020-05-13] MEDS ORDERED: Ipratropium/Albuterol Sulfate 4 GM AER IH PRN (07:13)
[2020-05-13] MEDS ORDERED: Albuterol 200 PUFF (6.7GM INHALER) INH PRN (07:13)
[2020-05-13] MEDS ORDERED: AMOXICILLIN PER TUBE SCH (09:00)
[2020-05-13] MEDS ORDERED: Aspirin 81 mg Enteric Coated Tablet PER TUBE SCH (09:00)
[2020-05-13] MEDS ORDERED: PHENOBARBITAL 97.2 MG PER TUBE SCH (09:00)
[2020-05-13] MEDS: Aspirin Chewable 81 MG TAB PER TUBE SCH (10:04)
[2020-05-13] MEDS: levETIRAcetam 500 mg/5 ml Oral Solution PER TUBE SCH ×2 (10:04→20:47)
[2020-05-13] MEDS: Enoxaparin Sodium 30 MG/0.3 ML SYRINGE SC SCH ×2 (10:04→20:45)
[2020-05-13] MEDS: Valproate Sodium 250 mg/5 ml UD Cup PER TUBE SCH ×2 (10:04→20:45)
[2020-05-13] MEDS: Pantoprazole 40 MG GRANULES PACKET PER TUBE SCH (10:05)
[2020-05-13] MEDS: Saccharomyces boulardii 250 MG CAP PER TUBE SCH (10:05)
[2020-05-13] MEDS: Famotidine 20 MG TAB PO SCH (10:05)
[2020-05-13] MEDS: Dexamethasone 4 mg/ml Vial SLOW IVP SCH (10:05)
[2020-05-13] MEDS: PHENobarbital 32.4 MG TAB PER TUBE SCH (10:05)
--- NOTE | 2020-05-13 17:36 | PDOC.PALCO ---
Palliative Care Consult - Consult Details Requesting Physician: Dr Deluna Reason for Consult: goals of care, assistance with communication prognosis/ disease Family Members Present: Communicated with pateint sister - Pertinent HPI Patient is a 74 year old female known to Palliative care. Recently discharged back to residential facility from hospital, presented back to hospital after on week for shortness of breath and hypoxia. Patient was evaluated in the emergency room and admitted for medical management of Covid 19. Recent Abx and steriod. - Pertinent PMH CVAm HTN, Dysphagia s/p PEG, CAD, DM II, Cognitive defect, CKD - Social History Smoking Status: Never smoker Smoking: no tobacco exposure Alcohol Use: none Drug Use History: none Living Situation: residential resident - Allergies Allergies/Adverse Reactions: Allergies Allergy/AdvReac Type Severity Reaction Status Date / Time nitrofurantoin Allergy Verified 05/12/20 20:32 [From Macrobid] Sulfa (Sulfonamide Allergy Verified 05/12/20 20:32 Antibiotics) sulfamethoxazole Allergy Verified 05/12/20 20:32 [From Bactrim] tramadol Allergy Verified 05/12/20 20:32 trimethoprim [From Bactrim] Allergy Verified 05/12/20 20:32 - Subjective Contracted, unable to follow commands. Weak wet cough. Chronic wound to buttock. Total assist for all ADL. Aphagic, Dysphagia nutritional support via PEG - ROS Non Response: due to mental status - Objective Vital Signs: Vital Signs - Most Recent Temp Pulse Resp BP Pulse Ox 98.5 F 88 20 124/63 94 L 05/13/20 11:40 05/13/20 11:40 05/13/20 11:40 05/13/20 11:40 05/13/20 15:02 Palliative Performance Scale: 30 - Physical Exam Constitutional: cachectic, encephalitic, ill appearing HEENT: moist MMs Respiratory: diminished lung sound Deviation from normal: Wet non productive cough Cardiovascular: RRR, diminished peripheral pulses Gastrointestinal: soft, non-tender, incontinent Deviation from normal: PEG Genitourinary: incontinent Musculoskeletal: no cyanosis, diffuse muscle atrophy Deviation from normal: aphagic, dysphagia Skin: fragile Deviation from normal: wound to buttock/sacrum - Problem List (1) COVID-19 Code(s): U07.1 - COVID-19 Current Visit: Yes Status: Acute (2) Dysphagia Code(s): R13.10 - DYSPHAGIA, UNSPECIFIED Current Visit: No Status: Acute Qualifiers: Dysphagia type: oropharyngeal phase Qualified Code(s): R13.12 - Dysphagia, oropharyngeal phase (3) Palliative care encounter Code(s): Z51.5 - ENCOUNTER FOR PALLIATIVE CARE Current Visit: No Status: Acute (4) Anemia in chronic kidney disease (CKD) Code(s): N18.9 - CHRONIC KIDNEY DISEASE, UNSPECIFIED; D63.1 - ANEMIA IN CHRONIC KIDNEY DISEASE Current Visit: No Status: Chronic Qualifiers: Chronic kidney disease stage: stage 3 (moderate) Qualified Code(s): N18.3 - Chronic kidney disease, stage 3 (moderate); D63.1 - Anemia in chronic kidney disease; D63.1 - Anemia in chronic kidney disease (5) Developmental delay, severe Code(s): R62.50 - UNSP LACK OF EXPECTED NORMAL PHYSIOL DEV IN CHILDHOOD Current Visit: No Status: Chronic (6) T2DM (type 2 diabetes mellitus) Current Visit: No Status: Chronic Qualifiers: Diabetes mellitus fdc insulin use: with fdc use Diabetes mellitus complication detail: with chronic kidney disease Chronic kidney disease stage: stage 3 (moderate) (7) Encephalopathy Code(s): G93.40 - ENCEPHALOPATHY, UNSPECIFIED Current Visit: No Status: Ruled-out - Plan/Recommendations Plan: Communicated iwth Dr Deluna Patient assessed, communicated with patient sister. Sister appears to be unrealistic in relation to meaningful recovery. Continues to desire aggressive measures and treatments at this time. Discussed aside from Covid patient has a elevated propensity for recurrent infection related to alteration in skin integrity, aspiration risk and incontinence paired with limited mobility and multiple morbidities. Palliative care will continue to support family and provide education and revisit goal of care with multiple morbidities. [50] minutes spent on this encounter with >50% of the time in counseling and coordination of care. Thank you for this very appropriate consult.
--- NOTE | 2020-05-13 19:48 | PDOC.HOSPP ---
- Subjective Encounter Date: 05/13/20 Encounter Time: 19:48 non-verbal Subjective: Patient seen and examined for respiratory failure due to COVID-19 pneumonia. Mentation improving. Gradually tolerating PEG tube feeding. On 2 L oxygen nasal cannula. - Objective Vital Signs & Weight: Vital Signs (12 hours) Temp Pulse Resp BP BP Pulse Ox 05/13/20 15:47 96 05/13/20 15:46 88 L 05/13/20 15:44 98.7 F 83 20 115/59 L 2 L 05/13/20 15:02 94 L 05/13/20 11:40 98.5 F 88 20 124/63 94 L 05/13/20 10:15 97.7 F 85 21 H 120/63 96 Weight Admit Weight 127 lb 9.6 oz Weight 127 lb 9.6 oz I&O: 05/12/20 05/13/20 05/14/20 06:59 06:59 06:59 Intake Total 90 300 Balance 90 300 Result Diagrams: 05/13/20 04:42 05/13/20 04:42 Additional Labs: Accuchecks 05/13/20 05/13/20 05/12/20 11:43 05:48 22:09 POC Glucose 233 H 213 H 319 H Laboratory Tests 05/13/20 04:42 Phosphorus 2.1 L Radiology Reviewed by me: Yes (CTA of the chestbilateral pneumonia) EKG Reviewed by me: Yes (Sinus rhythm on telemetry) Hospitalist ROS - Review of Systems ROS unobtainable: due to mental status - Medication Medications: Active Medications Generic Name Dose Route Start Last Admin Trade Name Mangoq PRN Reason Stop Dose Admin Amoxicillin 400 mg 05/13/20 09:00 05/13/20 16:16 Amoxil 250mg/5ml Oral Susp PER TUBE 400 mg TID SHAWN Administration Aspirin 81 mg 05/13/20 09:00 05/13/20 10:04 Aspirin Chewable PER TUBE 81 mg DAILY SHAWN Administration Dexamethasone 6 mg 05/13/20 09:00 05/13/20 10:05 Decadron SLOW IVP 6 mg DAILY SHAWN Administration Enoxaparin Sodium 30 mg 05/12/20 21:00 05/13/20 10:04 Lovenox SC 30 mg 0900,2100 SHAWN Administration Famotidine 20 mg 05/12/20 21:00 05/13/20 10:05 Pepcid PO 20 mg BID SHAWN Administration Insulin Human Regular 0 units 05/12/20 17:25 05/13/20 18:55 Humulin R SC 5 unit .MILD SLIDING SCALE PRN Administration Mild Correctional Scale Insulin Human Regular 0 units 05/12/20 17:25 05/12/20 22:41 Humulin R SC 4 unit .BEDTIME SLIDING SC PRN Administration Bedtime Correctional Scale Levetiracetam 500 mg 05/13/20 09:00 05/13/20 10:04 Keppra Oral Solution PER TUBE 500 mg BID SHAWN Administration Pantoprazole Sodium 40 mg 05/13/20 09:00 05/13/20 10:05 Protonix PER TUBE 40 mg DAILY SHAWN Administration Phenobarbital 97.2 mg 05/13/20 09:00 05/13/20 10:05 Phenobarbital PER TUBE 97.2 mg DAILY SHAWN Administration Saccharomyces Boulardii 250 mg 05/13/20 09:00 05/13/20 10:05 Florastor PER TUBE 250 mg DAILY SHAWN Administration Sodium Chloride 10 ml 05/12/20 16:30 05/13/20 10:06 Flush - Normal Saline IVF 10 ml PRN PRN Administration Saline Flush Valproic Acid 500 mg 05/13/20 09:00 05/13/20 10:04 Depakene Liquid PER TUBE 500 mg BID SHAWN Administration - Exam General Appearance: ill appearing Neck: supple, no JVD Heart: RRR, no gallops, no rubs, normal peripheral pulses Respiratory: rales, rhonchi, tachypneic Respiratory - other findings: Scattered wheezing Gastrointestinal: soft, non-distended, no guarding, no rigidity Gastrointestinal - other findings: PEG tube present Psychiatric - other findings: Neuro/psych exam limited due to current mentation Hosp A/P - Plan DVT proph w/lovenox, DVT proph w/SCDs Toxic metabolic encephalopathy Acute hypoxic respiratory failure/sepsis due to COVID 19 pneumonia Lactic acidosis due to sepsis Recent hospitalization for enterococcus UTI with bacteremia on amoxicillin Stage IV sacral pressure ulcer Hypomagnesemia/hypophosphatemia Chronic hyponatremia Swallow dysfunction with recent PEG tube placement Seizure disorderon Keppra, valproic acid and phenobarbital Coronary artery disease Diabetes mellitus type II History of CVA Dementia Recent EGD showing duodenitis Cholelithiasis Questionable masslike area on the recent Abd CT scan PCP to follow Hypertension Plan: 05/13 Continue IV dexamethasone with Remdesivir. Received convalescent plasma today. Continue nebulizer treatment. Continue PEG tube feeding. Continue wound care. Await speech therapy input for resuming oral diet. Replace phosphorus. Continue amoxicillin until May 15. Continue other medications as above. Infectious disease/palliative care input appreciated. Recheck labs in a.m. resume metformin in 1 to 2 days. 05/12 Patient will be monitored in the COVID unit. Hold IV fluids for now. I discussed with infectious disease. Patient will be started on dexamethasone, Remdesivir with convalescent plasma. PEG tube feeding will be restarted. Will resume seizure medications. Add aspirin due to history of CVA. Change Pepcid to PPIs given her recent EGD findings. Consult wound care. Insulin sliding scale. Continue other medications from the nursing facility. O2 supplementation. Add nebulizer treatment. Recheck labs in a.m. Replace magnesium. Resume po diet when mentation improvesplease note patient was on oral Modified feeds last discharge per speech therapy
[2020-05-13 20:02] LABS: SARS-CoV-2 IgG Ab Non-Reactive (NonReactive); SARS-CoV-2 IgG Index 1.24 S/CO (< 1.40)
[2020-05-13] MEDS: REMDESIVIR (EUA) 100 MG in Sodium Chloride 0.9% 250 ML 230 ML IV SCH (20:45)
[2020-05-13] MEDS: Acetaminophen 650 MG/20.3 ML UDCUP PER TUBE PRN (20:45)
[2020-05-14] MEDS ORDERED: Loperamide HCl 1 MG/7.5 ML UDCUP PER TUBE SCH (02:15)
[2020-05-14 05:36] LABS: ALT (SGPT) 16 U/L (8-55); AST (SGOT) 27 U/L (5-34); Albumin 2.7 g/dL (3.4-4.8); Alkaline Phosphatase 107 U/L (40-110); Anion Gap 13 mmol/L (10-20); BUN (Urea Nitrogen) 18 mg/dL (9.8-20.1); Bilirubin, Direct 0.1 mg/dL (0.1-0.3); Bilirubin, Total Less than 0.2 mg/dL (0.2-1.2); Calc. Creatinine Clearance 75 mL/min (70-130); Calcium 8.3 mg/dL (7.8-10.44); Carbon Dioxide 26 mmol/L (23-31); Chloride 95 mmol/L (98-107); Estimated GFR-MDRD Greater than 90; Glucose 158 mg/dL (83-110); Magnesium 1.8 mg/dL (1.6-2.6); Phosphorus 2.2 mg/dL (2.3-4.7); Potassium 4.1 mmol/L (3.5-5.1); Protein, Total 6.6 g/dL (6.0-8.3); Sodium 130 mmol/L (136-145)
[2020-05-14 05:48] LABS: Band 12 % (5-11); Eosinophils 2 % (0-10); Lymphocytes 23 % (21-51); MDiff Complete? YES; Mean Corpuscular HGB CONC 32.2 g/dL (32.0-36.0); Mean Corpuscular Hemoglobin 26.3 pg (27.0-31.0); Mean Corpuscular Volume 81.6 fL (78.0-98.0); Mean Platelet Volume 6.8 fL (7.4-10.4); Monocytes 8 % (0-10); Myelocyte 2 % (0-0); Neutrophil 53 % (42-75); Platelet Count 653 thou/uL (130-400); RBC Distribution Width 15.5 % (11.5-14.5); Red Blood Cell (RBC) Count 3.43 mill/uL (4.20-5.40); White Blood Cell (WBC) Count 10.1 thou/uL (4.8-10.8)
[2020-05-14] MEDS: Insulin Regular 300 UNITS/3 ML VIAL SC PRN ×2 (06:10→18:20)
--- NOTE | 2020-05-14 06:55 | CON ---
DATE OF CONSULTATION: 05/13/2020 HISTORY OF PRESENT ILLNESS: Ms. Willis was here just recently and I was called on the case. She basically has a history of type 2 diabetes; end-stage renal disease, on hemodialysis with AV fistula; and chronic intellectual disability. She is a [facility]. She has had episodes of aspiration pneumonia and has a gastrostomy tube for feedings. She was brought because of altered mental state with unresponsiveness on arrival. Our evaluation there concluded that there were various abnormalities detected and we did not have then evidence of respiratory tract infection. The patient had a chest x-ray done with no pulmonary infiltrates. She had normal O2 sats. She did have abnormal urinalysis, but that probably reflected chronic pyocystitis, typically associated with renal failure, but did not have clinical meaning in terms of requiring treatment. She had a negative COVID test on 04/28. Now she comes back with evidence of hypoxemia identified in the [facility]. She had been on hospice care, but that was revoked by family members and that was confirmed by the hospitalist. On arrival, her BP 130/80, pulse 92, respirations 22, temperature 99.7, and O2 saturation 90 on room air, went up to 96 on [address] angio, which showed bilateral ground-glass opacities, extensive. At this time, the COVID test turned out positive, COVID unit and giving O2 per nasal cannula, 2 L with 95% sat, now she is at 94%. Breathing at about 20 times a minute. Temperature has been normal. She is not able to provide any information because of her cognitive dysfunction. She has not had diarrhea. No obvious aspiration. PAST MEDICAL HISTORY: Includes: 1. CVA. 2. Hypertension. 3. Dementia, probably vascular dementia. 4. Swallowing dysfunction with gastrostomy tube feeding. 5. Seizure activity. 6. Coronary artery disease. 7. Type 2 diabetes. 8. ESRD, on hemodialysis with an AV fistula. 9. UTI, probably chronic pyocystitis, associated with low urine output. 10. Prior episodes of aspiration pneumonia. SOCIAL HISTORY: jail resident. No other social history available. FAMILY HISTORY: Not available. ALLERGY HISTORY: Sulfa drugs, nitrofurantoin. MEDICATIONS: Has been given Decadron, remdesivir, plasma convalescent Receivin. Inhalers. 2. Pepcid. 3. Glucagon. 4. Insulin. 5. Keppra. 6. Zofran. 7. She is on phenobarbital. 8. Protonix. 9. Valproic acid. PHYSICAL EXAMINATION: VITAL SIGNS: T-max 99.1, BP 120/60, pulse 88, respirations 20 to 21, O2 saturation now is 94 on 2 L. SKIN: The gastrostomy tube exit site appearing normal. A little bit of maceration and erythema in the intergluteal region. Peripheral IV access. No lymphadenopathy. HEENT: Somewhat dysconjugate eye movements, that is chronic. Oral cavity with numerous decaying teeth are missing, severe gum disease noted. Oral cavity is dry. NECK: Supple. LUNGS: Symmetric air entry with no obvious crackles or wheezing. HEART: S1 and S2. Regular rate. ABDOMEN: Soft, not distended or tender. No ascites. No bladder distention. Ostomy tube exit site appears normal. NEUROLOGIC: Seems to move extremities, but does not follow commands. She is more sedated and more obtunded compared with the last time I saw her. No hyperreflexia noted. No clonus. LABORATORY DATA: White cell count is 10.6, hemoglobin 9.3, MCV 82, platelets 551 with 13% bands. D-dimer 1.91. Sodium 131, creatinine 0.67, phosphorus 2.1, AST 32, ALT 17, and albumin 2.6. SARS-CoV-2 was detected. The findings in the imaging studies as noted before. ASSESSMENT: 1. Dementia, vascular. 2. Prior cerebrovascular accident. 3. Poor dentition with swallowing dysfunction, requiring gastrostomy tube feedings. 4. Recent admission with altered mental state with negative COVID test, now was positive, with ground-glass opacities noted on CT of chest, is requiring moderate amounts of O2 supplementation by nasal cannula, has received remdesivir, plasma , and on Decadron. DISCUSSION: The patient's COVID infection [facility] likely [facility] the [facility]. Duration of illness is not clear. It is possible that she was already infected when she came the first time around to the hospital despite negative COVID test. As we know, the COVID pcr does not have perfect sensitivity. We will continue treatment and check COVID antibody test. If it is positive with a high titer, then would increase likelihood that it is at least 2 weeks duration of illness. If negative, then this would be a new infection within the past 7 days approximately. It looks like she still has a full code advanced directive. Job ID: [id number] [id number]
[2020-05-14] MEDS: Valproate Sodium 250 mg/5 ml UD Cup PER TUBE SCH ×2 (10:11→21:02)
[2020-05-14] MEDS: levETIRAcetam 500 mg/5 ml Oral Solution PER TUBE SCH ×2 (10:11→21:08)
[2020-05-14] MEDS: Enoxaparin Sodium 30 MG/0.3 ML SYRINGE SC SCH ×2 (10:11→21:02)
[2020-05-14] MEDS: Aspirin Chewable 81 MG TAB PER TUBE SCH (10:12)
[2020-05-14] MEDS: Saccharomyces boulardii 250 MG CAP PER TUBE SCH (10:12)
[2020-05-14] MEDS: Dexamethasone 4 mg/ml Vial SLOW IVP SCH (10:12)
[2020-05-14] MEDS: Pantoprazole 40 MG GRANULES PACKET PER TUBE SCH (10:12)
[2020-05-14] MEDS: PHENobarbital 32.4 MG TAB PER TUBE SCH (10:17)
[2020-05-14] MEDS: PHOS-NAK 1 PKT PACK PER TUBE SCH (18:15)
[2020-05-14] MEDS ORDERED: Electrolyte Replacement Protocol FS SCH (20:06)
--- NOTE | 2020-05-14 20:07 | PDOC.HOSPP ---
- Subjective Encounter Date: 05/14/20 Encounter Time: 18:00 Subjective: Patient seen and examined for sepsis due to COVID-19. Remains confused. Failed swallow evaluation. Tolerating PEG tube feeding at current rate. Pulling telemetry wires. - Objective Vital Signs & Weight: Vital Signs (12 hours) Temp Pulse Resp BP Pulse Ox 05/14/20 15:05 98.9 F 94 20 122/59 L 93 L 05/14/20 11:50 97.5 F L 86 28 H 130/73 92 L 05/14/20 09:50 97.7 F 82 18 127/58 L 95 Weight Admit Weight 127 lb 9.6 oz Weight 127 lb 9.6 oz I&O: 05/13/20 05/14/20 05/15/20 06:59 06:59 06:59 Intake Total 90 390 90 Output Total 350 Balance 90 40 90 Result Diagrams: 05/14/20 04:06 05/14/20 04:06 Additional Labs: Accuchecks 05/14/20 05/14/20 05/14/20 11:51 06:06 00:18 POC Glucose 196 H 201 H 154 H Laboratory Tests 05/12/20 05/13/20 05/14/20 14:31 14:01 04:06 Phosphorus 2.2 L SARS-CoV-2 Rap RNA(RT-PCR) DETECTED A* SARS-CoV-2 IgG Ab Index 1.24 Radiology Reviewed by me: Yes (CT chest bilateral pneumonia) EKG Reviewed by me: Yes (Sinus rhythm on telemetry) Hospitalist ROS - Review of Systems ROS unobtainable: due to mental status - Medication Medications: Active Medications Generic Name Dose Route Start Last Admin Trade Name Freq PRN Reason Stop Dose Admin Acetaminophen 650 mg 05/13/20 06:53 05/13/20 20:45 Tylenol Elixir PER TUBE 650 mg Q4H PRN Administration pain/fever Amoxicillin 400 mg 05/13/20 09:00 05/14/20 15:05 Amoxil 250mg/5ml Oral Susp PER TUBE 05/15/20 23:59 400 mg TID SHAWN Administration Aspirin 81 mg 05/13/20 09:00 05/14/20 10:12 Aspirin Chewable PER TUBE 81 mg DAILY SHAWN Administration Dexamethasone 6 mg 05/13/20 09:00 05/14/20 10:12 Decadron SLOW IVP 6 mg DAILY SHAWN Administration Enoxaparin Sodium 30 mg 05/12/20 21:00 05/14/20 10:11 Lovenox SC 30 mg 0900,2100 SHAWN Administration REMDESIVIR (EUA) 100 mg/ 230 mls @ 230 mls/hr 05/13/20 20:00 05/13/20 20:45 Sodium Chloride IV 05/16/20 20:59 230 mls 2000 SHAWN Administration Insulin Human Regular 0 units 05/12/20 17:25 05/12/20 22:41 Humulin R SC 4 unit .BEDTIME SLIDING SC PRN Administration Bedtime Correctional Scale Insulin Human Regular 0 units 05/13/20 20:29 05/14/20 18:20 Humulin R SC 10 unit .MODERATE SLIDING SC PRN Administration Moderate Correctional Scale Levetiracetam 500 mg 05/13/20 09:00 05/14/20 10:11 Keppra Oral Solution PER TUBE 500 mg BID SHAWN Administration Miscellaneous Medication 1 pkt 05/14/20 17:00 05/14/20 18:15 Phos-Nak PER TUBE 05/15/20 17:01 1 pkt BID-WM SHAWN Administration Pantoprazole Sodium 40 mg 05/13/20 09:00 05/14/20 10:12 Protonix PER TUBE 40 mg DAILY SHAWN Administration Phenobarbital 97.2 mg 05/13/20 09:00 05/14/20 10:17 Phenobarbital PER TUBE 97.2 mg DAILY SHAWN Administration Saccharomyces Boulardii 250 mg 05/13/20 09:00 05/14/20 10:12 Florastor PER TUBE 250 mg DAILY SHAWN Administration Sodium Chloride 10 ml 05/12/20 16:30 05/13/20 10:06 Flush - Normal Saline IVF 10 ml PRN PRN Administration Saline Flush Valproic Acid 500 mg 05/13/20 09:00 05/14/20 10:11 Depakene Liquid PER TUBE 500 mg BID SHAWN Administration - Exam General Appearance: ill appearing Heart: RRR, no gallops, no rubs, normal peripheral pulses Respiratory: rales, rhonchi, tachypneic, wheezes Gastrointestinal: soft, non-distended, no guarding, no rigidity Gastrointestinal - other findings: PEG tube present Psychiatric - other findings: Neuro/psych exam limited due to current mentation Hosp A/P - Plan DVT proph w/lovenox, DVT proph w/SCDs Toxic metabolic encephalopathy Acute hypoxic respiratory failure/sepsis due to COVID 19 pneumonia -s/p convalescent plasma 05/13 Lactic acidosis due to sepsis Recent hospitalization for enterococcus UTI with bacteremia on amoxicillin Stage IV sacral pressure ulcer Hypomagnesemia/hypophosphatemia Chronic hyponatremia Swallow dysfunction with recent PEG tube placement Seizure disorderon Keppra, valproic acid and phenobarbital Coronary artery disease Diabetes mellitus type II History of CVA Dementia Recent EGD showing duodenitison PPIs Cholelithiasis Questionable masslike area on the recent Abd CT scan PCP to follow Hypertension Plan: 05/14 Continue Remdesivir with IV dexamethasone. Patient is unsafe for any diet per speech therapy due to altered mentation. Replace phosphorus. Continue sliding scale. Continue antiepileptic drugs. Discontinue telemetry since patient is pulling wires. Family was updated earlier by RN. A.m. labs. Continue other medications 05/13 Continue IV dexamethasone with Remdesivir. Received convalescent plasma today. Continue nebulizer treatment. Continue PEG tube feeding. Continue wound care. Await speech therapy input for resuming oral diet. Replace phosphorus. Continue amoxicillin until May 15. Continue other medications as above. Infectious disease/palliative care input appreciated. Recheck labs in a.m. resume metformin in 1 to 2 days. 05/12 Patient will be monitored in the COVID unit. Hold IV fluids for now. I discussed with infectious disease. Patient will be started on dexamethasone, Remdesivir with convalescent plasma. PEG tube feeding will be restarted. Will resume seizure medications. Add aspirin due to history of CVA. Change Pepcid to PPIs given her recent EGD findings. Consult wound care. Insulin sliding scale. Continue other medications from the nursing facility. O2 supplementation. Add nebulizer treatment. Recheck labs in a.m. Replace magnesium. Resume po diet when mentation improvesplease note patient was on oral Modified feeds last discharge per speech therapy
[2020-05-14] MEDS: REMDESIVIR (EUA) 100 MG in Sodium Chloride 0.9% 250 ML 230 ML IV SCH (21:02)
[2020-05-15] MEDS: Insulin Regular 300 UNITS/3 ML VIAL SC PRN ×3 (00:24→17:01)
[2020-05-15 05:32] LABS: Hemoglobin 9.2 g/dL (12.0-16.0); Magnesium 1.7 mg/dL (1.6-2.6); Mean Corpuscular HGB CONC 32.6 g/dL (32.0-36.0); Mean Corpuscular Hemoglobin 26.8 pg (27.0-31.0); Mean Corpuscular Volume 82.2 fL (78.0-98.0); Phosphorus 2.5 mg/dL (2.3-4.7); Platelet Count 760 thou/uL (130-400); RBC Distribution Width 15.9 % (11.5-14.5); Red Blood Cell (RBC) Count 3.43 mill/uL (4.20-5.40); White Blood Cell (WBC) Count 11.9 thou/uL (4.8-10.8)
[2020-05-15 05:34] LABS: ALT (SGPT) 12 U/L (8-55); AST (SGOT) 24 U/L (5-34); Albumin 2.6 g/dL (3.4-4.8); Alkaline Phosphatase 108 U/L (40-110); Anion Gap 15 mmol/L (10-20); BUN (Urea Nitrogen) 23 mg/dL (9.8-20.1); Bilirubin, Direct 0.1 mg/dL (0.1-0.3); Bilirubin, Total Less than 0.2 mg/dL (0.2-1.2); Calc. Creatinine Clearance 74 mL/min (70-130); Calcium 8.5 mg/dL (7.8-10.44); Carbon Dioxide 25 mmol/L (23-31); Chloride 97 mmol/L (98-107); Estimated GFR-MDRD Greater than 90; Glucose 119 mg/dL (83-110); Potassium 4.2 mmol/L (3.5-5.1); Protein, Total 6.6 g/dL (6.0-8.3); Sodium 133 mmol/L (136-145)
[2020-05-15 05:46] LABS: Band 7 % (5-11); Eosinophils 1 % (0-10); Lymphocytes 17 % (21-51); MDiff Complete? YES; Metamyelocyte 1 % (0-0); Monocytes 11 % (0-10); Myelocyte 3 % (0-0); Neutrophil 59 % (42-75); Platelet Morphology Comment Appears Increased; Reactive Lymphocytes 1 % (0-10)
[2020-05-15] MEDS ORDERED: Magnesium 2 GM/50 ML 2 GM in Premix Bag 1 BAG IVPB SCH (06:30)
[2020-05-15] MEDS: levETIRAcetam 500 mg/5 ml Oral Solution PER TUBE SCH ×2 (08:59→21:30)
[2020-05-15] MEDS: Enoxaparin Sodium 30 MG/0.3 ML SYRINGE SC SCH ×2 (08:59→21:30)
[2020-05-15] MEDS: PHOS-NAK 1 PKT PACK PER TUBE SCH ×2 (08:59→16:36)
[2020-05-15] MEDS: Valproate Sodium 250 mg/5 ml UD Cup PER TUBE SCH ×2 (08:59→21:30)
[2020-05-15] MEDS: Dexamethasone 4 mg/ml Vial SLOW IVP SCH (09:00)
[2020-05-15] MEDS: Pantoprazole 40 MG GRANULES PACKET PER TUBE SCH (09:00)
[2020-05-15] MEDS: Aspirin Chewable 81 MG TAB PER TUBE SCH (09:00)
[2020-05-15] MEDS: Saccharomyces boulardii 250 MG CAP PER TUBE SCH (09:00)
[2020-05-15] MEDS: PHENobarbital 32.4 MG TAB PER TUBE SCH (10:45)
--- NOTE | 2020-05-15 14:36 | PDOC.HOSPP ---
- Subjective Encounter Date: 05/15/20 Encounter Time: 10:00 non-verbal Subjective: Patient seen and examined for respiratory failure/COVID pneumonia. Not safe for oral consistency due to persistent altered mentation. Tolerating PEG tube feeds. No other overnight events. - Objective Vital Signs & Weight: Vital Signs (12 hours) Temp Pulse Resp BP Pulse Ox 05/15/20 11:00 99.1 F 80 20 151/65 H 96 05/15/20 09:00 98.4 F 90 18 134/78 94 L 05/15/20 08:00 94 L 05/15/20 05:00 98.6 F 91 22 H 141/69 H 95 Weight Admit Weight 127 lb 9.6 oz Weight 127 lb 9.6 oz I&O: 05/14/20 05/15/20 05/16/20 06:59 06:59 06:59 Intake Total 390 1040 30 Output Total 350 Balance 40 1040 30 Result Diagrams: 05/15/20 04:45 05/15/20 04:45 Additional Labs: Accuchecks 05/15/20 05/15/20 05/14/20 10:34 00:21 21:41 POC Glucose 308 H 202 H 208 H 05/14/20 18:24 POC Glucose 351 H EKG Reviewed by me: Yes (Sinus rhythm on telemetry earlier) Hospitalist ROS - Review of Systems ROS unobtainable: due to mental status - Medication Medications: Active Medications Generic Name Dose Route Start Last Admin Trade Name Freq PRN Reason Stop Dose Admin Acetaminophen 650 mg 05/13/20 06:53 05/13/20 20:45 Tylenol Elixir PER TUBE 650 mg Q4H PRN Administration pain/fever Amoxicillin 400 mg 05/13/20 09:00 05/15/20 08:59 Amoxil 250mg/5ml Oral Susp PER TUBE 05/15/20 23:59 400 mg TID SHAWN Administration Aspirin 81 mg 05/13/20 09:00 05/15/20 09:00 Aspirin Chewable PER TUBE 81 mg DAILY SHAWN Administration Dexamethasone 6 mg 05/13/20 09:00 05/15/20 09:00 Decadron SLOW IVP 6 mg DAILY SHAWN Administration Enoxaparin Sodium 30 mg 05/12/20 21:00 05/15/20 08:59 Lovenox SC 30 mg 0900,2100 SHAWN Administration REMDESIVIR (EUA) 100 mg/ 230 mls @ 230 mls/hr 05/13/20 20:00 05/14/20 21:02 Sodium Chloride IV 05/16/20 20:59 230 mls 2000 SHAWN Administration Insulin Human Regular 0 units 05/12/20 17:25 05/12/20 22:41 Humulin R SC 4 unit .BEDTIME SLIDING SC PRN Administration Bedtime Correctional Scale Insulin Human Regular 0 units 05/13/20 20:29 05/15/20 10:46 Humulin R SC 8 unit .MODERATE SLIDING SC PRN Administration Moderate Correctional Scale Levetiracetam 500 mg 05/13/20 09:00 05/15/20 08:59 Keppra Oral Solution PER TUBE 500 mg BID SHAWN Administration Miscellaneous Medication 1 pkt 05/14/20 17:00 05/15/20 08:59 Phos-Nak PER TUBE 05/15/20 17:01 1 pkt BID-WM SHAWN Administration Pantoprazole Sodium 40 mg 05/13/20 09:00 05/15/20 09:00 Protonix PER TUBE 40 mg DAILY SHAWN Administration Phenobarbital 97.2 mg 05/13/20 09:00 05/15/20 10:45 Phenobarbital PER TUBE 97.2 mg DAILY SHAWN Administration Saccharomyces Boulardii 250 mg 05/13/20 09:00 05/15/20 09:00 Florastor PER TUBE 250 mg DAILY SHAWN Administration Sodium Chloride 10 ml 05/12/20 16:30 05/13/20 10:06 Flush - Normal Saline IVF 10 ml PRN PRN Administration Saline Flush Valproic Acid 500 mg 05/13/20 09:00 05/15/20 08:59 Depakene Liquid PER TUBE 500 mg BID SHAWN Administration - Exam General Appearance: ill appearing Heart: RRR, no gallops Respiratory: rales, rhonchi, tachypneic, wheezes Gastrointestinal: soft, normal bowel sounds, no guarding, no rigidity Extremities: no cyanosis, no clubbing Neurological: no new deficit Psychiatric - other findings: Exam limited due to current mentation Hosp A/P - Plan Toxic metabolic encephalopathy Acute hypoxic respiratory failure/sepsis due to COVID 19 pneumonia -s/p convalescent plasma 05/13 Lactic acidosis due to sepsis Recent hospitalization for enterococcus UTI with bacteremia on amoxicillin Stage IV sacral pressure ulcer Hypomagnesemia/hypophosphatemia Chronic hyponatremia Swallow dysfunction with recent PEG tube placement Seizure disorderon Keppra, valproic acid and phenobarbital Coronary artery disease Diabetes mellitus type II History of CVA Dementia Recent EGD showing duodenitison PPIs Cholelithiasis Questionable masslike area on the recent Abd CT scan PCP to follow Hypertension Plan: Continue Remdesivirday 4 with IV Decadron. Replace magnesium. Continue antiepileptic drugs. Continue PEG tube feeding. Patient is not safe to swallow any consistency due to altered mentation. Discontinue amoxicillin after today's dose. Recheck labs in a.m. I attempted to call the family with no answer. Continue sliding scale. Continue other medications. Recheck labs including inflammatory markers in a.m. Add NPH 10 units daily. 05/14 Continue Remdesivir with IV dexamethasone. Patient is unsafe for any diet per speech therapy due to altered mentation. Replace phosphorus. Continue sliding scale. Continue antiepileptic drugs. Discontinue telemetry since patient is pulling wires. Family was updated earlier by RN. A.m. labs. Continue other medications 05/13 Continue IV dexamethasone with Remdesivir. Received convalescent plasma today. Continue nebulizer treatment. Continue PEG tube feeding. Continue wound care. Await speech therapy input for resuming oral diet. Replace phosphorus. Continue amoxicillin until May 15. Continue other medications as above. Infectious disease/palliative care input appreciated. Recheck labs in a.m. resume metformin in 1 to 2 days. 05/12 Patient will be monitored in the COVID unit. Hold IV fluids for now. I discussed with infectious disease. Patient will be started on dexamethasone, Remdesivir with convalescent plasma. PEG tube feeding will be restarted. Will resume seizure medications. Add aspirin due to history of CVA. Change Pepcid to PPIs given her recent EGD findings. Consult wound care. Insulin sliding scale. Continue other medications from the nursing facility. O2 supplementation. Add nebulizer treatment. Recheck labs in a.m. Replace magnesium. Resume po diet when mentation improvesplease note patient was on oral Modified feeds last discharge per speech therapy
[2020-05-15] MEDS: REMDESIVIR (EUA) 100 MG in Sodium Chloride 0.9% 250 ML 230 ML IV SCH (21:00)
[2020-05-15] MEDS: Acetaminophen 650 MG/20.3 ML UDCUP PER TUBE PRN (21:30)
[2020-05-16] MEDS: Insulin Regular 300 UNITS/3 ML VIAL SC PRN ×4 (06:06→21:22)
[2020-05-16 06:54] LABS: Phosphorus 3.3 mg/dL (2.3-4.7)
[2020-05-16 06:55] LABS: Band 7 % (5-11); CRP (Inflammatory) 9.46 mg/dL (= or < 0.5); Eosinophils 1 % (0-10); Hemoglobin 9.7 g/dL (12.0-16.0); Lymphocytes 13 % (21-51); MDiff Complete? YES; Magnesium 1.8 mg/dL (1.6-2.6); Mean Corpuscular HGB CONC 33.1 g/dL (32.0-36.0); Mean Corpuscular Hemoglobin 27.3 pg (27.0-31.0); Mean Corpuscular Volume 82.4 fL (78.0-98.0); Mean Platelet Volume 6.5 fL (7.4-10.4); Metamyelocyte 1 % (0-0); Monocytes 6 % (0-10); Neutrophil 72 % (42-75); Platelet Count 804 thou/uL (130-400); Platelet Morphology Comment Appears Increased; RBC Distribution Width 15.7 % (11.5-14.5); Red Blood Cell (RBC) Count 3.54 mill/uL (4.20-5.40); White Blood Cell (WBC) Count 13.3 thou/uL (4.8-10.8)
[2020-05-16 06:58] LABS: ALT (SGPT) 14 U/L (8-55); AST (SGOT) 26 U/L (5-34); Albumin 2.7 g/dL (3.4-4.8); Alkaline Phosphatase 147 U/L (40-110); Anion Gap 16 mmol/L (10-20); BUN (Urea Nitrogen) 20 mg/dL (9.8-20.1); Bilirubin, Direct 0.1 mg/dL (0.1-0.3); Bilirubin, Total Less than 0.2 mg/dL (0.2-1.2); Calc. Creatinine Clearance 65 mL/min (70-130); Calcium 8.2 mg/dL (7.8-10.44); Carbon Dioxide 26 mmol/L (23-31); Chloride 92 mmol/L (98-107); Estimated GFR-MDRD 83; Glucose 289 mg/dL (83-110); Potassium 4.9 mmol/L (3.5-5.1); Protein, Total 6.9 g/dL (6.0-8.3); Sodium 129 mmol/L (136-145)
[2020-05-16] MEDS ORDERED: Magnesium 2 GM/50 ML 2 GM in Premix Bag 1 BAG IVPB SCH (07:15)
[2020-05-16] MEDS: Aspirin Chewable 81 MG TAB PER TUBE SCH (08:22)
[2020-05-16] MEDS: Dexamethasone 4 mg/ml Vial SLOW IVP SCH (08:22)
[2020-05-16] MEDS: levETIRAcetam 500 mg/5 ml Oral Solution PER TUBE SCH ×2 (08:22→20:36)
[2020-05-16] MEDS: Enoxaparin Sodium 30 MG/0.3 ML SYRINGE SC SCH ×2 (08:22→20:36)
[2020-05-16] MEDS: Saccharomyces boulardii 250 MG CAP PER TUBE SCH (08:23)
[2020-05-16] MEDS: Pantoprazole 40 MG GRANULES PACKET PER TUBE SCH (08:23)
[2020-05-16] MEDS: Valproate Sodium 250 mg/5 ml UD Cup PER TUBE SCH ×2 (08:23→20:36)
[2020-05-16] MEDS ORDERED: NPH, Human Insulin Isophane 300 UNIT/3 ML VIAL SC SCH (09:00)
[2020-05-16] MEDS: PHENobarbital 32.4 MG TAB PER TUBE SCH (09:06)
[2020-05-16] MEDS: Acetaminophen 650 MG/20.3 ML UDCUP PER TUBE PRN ×2 (12:39→20:39)
--- NOTE | 2020-05-16 15:25 | PRG ---
DATE OF SERVICE: 05/16/2020 SUBJECTIVE: The patient is not interacting with examiner. She opens her eyes intermittently. She appears to be comfortable at rest. OBJECTIVE: VITAL SIGNS: She has normal temperature since admission. O2 saturations are up to 97 with nasal cannula at 4 L, blood pressure normal. LUNGS: Symmetric. Clear breath sounds. HEART: S1 and S2. Regular rate. ABDOMEN: Soft, not distended. NEUROLOGIC: No change in neuro exam. LABORATORY DATA: Ferritin, CRP, and D-dimer are trending down. White cell count is up because of corticosteroids and she is finishing her remdesivir. The SARS-CoV IgG antibody index was 1.24, which is below the threshold of 1.4, which tells me that when the test was done, she was right around 7 days of illness and now she is probably around the 10th day approximately. ASSESSMENT AND DISCUSSION: 1. Dementia. 2. Cerebrovascular accident. 3. Swallowing dysfunction, gastrostomy tube feedings. 4. COVID pneumonia around 10th day of illness on remdesivir and Decadron with improvement. Continue to finish course of remdesivir and hopefully be able to be transferred back to snf and finish of her Decadron course. She is also on enoxaparin. Job ID: [id number]
--- NOTE | 2020-05-16 18:36 | PDOC.HOSPP ---
- Subjective Encounter Date: 05/16/20 Encounter Time: 14:00 non-verbal Subjective: Patient seen and examined for respiratory failure/COVID-19 pneumonia. No significant change in mentation. Currently on 4 L nasal cannula. - Objective Vital Signs & Weight: Vital Signs (12 hours) Temp Pulse Resp BP Pulse Ox 05/16/20 17:00 98.3 F 82 20 124/75 96 05/16/20 13:00 98.6 F 87 18 123/70 95 05/16/20 09:00 98.8 F 89 18 125/82 96 05/16/20 08:00 95 Weight Admit Weight 127 lb 9.6 oz Weight 127 lb 9.6 oz I&O: 05/15/20 05/16/20 05/17/20 06:59 06:59 06:59 Intake Total 1040 1557 750 Output Total 250 900 Balance 1040 1307 -150 Result Diagrams: 05/16/20 06:26 05/16/20 06:26 Additional Labs: Accuchecks 05/16/20 05/16/20 05/16/20 18:15 12:55 05:28 POC Glucose 339 H 299 H 297 H 05/15/20 21:30 POC Glucose 197 H Hospitalist ROS - Review of Systems ROS unobtainable: due to mental status - Medication Medications: Active Medications Generic Name Dose Route Start Last Admin Trade Name Freq PRN Reason Stop Dose Admin Acetaminophen 650 mg 05/13/20 06:53 05/16/20 12:39 Tylenol Elixir PER TUBE 650 mg Q4H PRN Administration pain/fever Aspirin 81 mg 05/13/20 09:00 05/16/20 08:22 Aspirin Chewable PER TUBE 81 mg DAILY HSAWN Administration Dexamethasone 6 mg 05/13/20 09:00 05/16/20 08:22 Decadron SLOW IVP 6 mg DAILY SHAWN Administration Enoxaparin Sodium 30 mg 05/12/20 21:00 05/16/20 08:22 Lovenox SC 30 mg 0900,2099 SHAWN Administration REMDESIVIR (EUA) 100 mg/ 230 mls @ 230 mls/hr 05/13/20 20:00 05/15/20 21:00 Sodium Chloride IV 05/16/20 20:59 230 mls 2000 SHAWN Administration Insulin Human Regular 0 units 05/12/20 17:25 05/12/20 22:41 Humulin R SC 4 unit .BEDTIME SLIDING SC PRN Administration Bedtime Correctional Scale Insulin Human Regular 0 units 05/13/20 20:29 05/16/20 18:27 Humulin R SC 8 unit .MODERATE SLIDING SC PRN Administration Moderate Correctional Scale Levetiracetam 500 mg 05/13/20 09:00 05/16/20 08:22 Keppra Oral Solution PER TUBE 500 mg BID SHAWN Administration Pantoprazole Sodium 40 mg 05/13/20 09:00 05/16/20 08:23 Protonix PER TUBE 40 mg DAILY SHAWN Administration Phenobarbital 97.2 mg 05/13/20 09:00 05/16/20 09:06 Phenobarbital PER TUBE 97.2 mg DAILY SHAWN Administration Saccharomyces Boulardii 250 mg 05/13/20 09:00 05/16/20 08:23 Florastor PER TUBE 250 mg DAILY SHAWN Administration Sodium Chloride 10 ml 05/12/20 16:30 05/13/20 10:06 Flush - Normal Saline IVF 10 ml PRN PRN Administration Saline Flush Valproic Acid 500 mg 05/13/20 09:00 05/16/20 08:23 Depakene Liquid PER TUBE 500 mg BID SHAWN Administration - Exam General Appearance: ill appearing Heart: RRR, no gallops Respiratory: rales, rhonchi Gastrointestinal: soft, non-distended, no guarding, no rigidity Extremities: no cyanosis Psychiatric: somnolent Hosp A/P - Plan DVT proph w/lovenox Toxic metabolic encephalopathy Acute hypoxic respiratory failure/sepsis due to COVID 19 pneumonia -s/p convalescent plasma 05/13 Lactic acidosis due to sepsis Recent hospitalization for enterococcus UTI with bacteremia on amoxicillin Stage IV sacral pressure ulcer Hypomagnesemia/hypophosphatemia Chronic hyponatremia Swallow dysfunction with recent PEG tube placement Seizure disorderon Keppra, valproic acid and phenobarbital Coronary artery disease Diabetes mellitus type II History of CVA Dementia Recent EGD showing duodenitison PPIs Cholelithiasis Questionable masslike area on the recent Abd CT scan PCP to follow Hypertension Plan: 05/16 Complete last dose of Remdesivir today. Continue Decadron. 2 g magnesium today. Recheck labs in a.m. Inflammatory markers improving. Continue PEG tube feeding. Increase NPH to 10 units twice daily. I attempted to call family with no answer. Continue other medications. Discharge planning. 05/15 Continue Remdesivirday 4 with IV Decadron. Replace magnesium. Continue antiepileptic drugs. Continue PEG tube feeding. Patient is not safe to swallow any consistency due to altered mentation. Discontinue amoxicillin after today's dose. Recheck labs in a.m. I attempted to call the family with no answer. Continue sliding scale. Continue other medications. Recheck labs including inflammatory markers in a.m. Add NPH 10 units daily. 05/14 Continue Remdesivir with IV dexamethasone. Patient is unsafe for any diet per speech therapy due to altered mentation. Replace phosphorus. Continue sliding scale. Continue antiepileptic drugs. Discontinue telemetry since patient is pulling wires. Family was updated earlier by RN. A.m. labs. Continue other medications 05/13 Continue IV dexamethasone with Remdesivir. Received convalescent plasma today. Continue nebulizer treatment. Continue PEG tube feeding. Continue wound care. Await speech therapy input for resuming oral diet. Replace phosphorus. Continue amoxicillin until May 15. Continue other medications as above. Infectious disease/palliative care input appreciated. Recheck labs in a.m. resume metformin in 1 to 2 days. 05/12 Patient will be monitored in the COVID unit. Hold IV fluids for now. I discussed with infectious disease. Patient will be started on dexamethasone, Remdesivir with convalescent plasma. PEG tube feeding will be restarted. Will resume seizure medications. Add aspirin due to history of CVA. Change Pepcid to PPIs given her recent EGD findings. Consult wound care. Insulin sliding scale. Continue other medications from the nursing facility. O2 supplementation. Add nebulizer treatment. Recheck labs in a.m. Replace magnesium. Resume po diet when mentation improvesplease note patient was on oral Modified feeds last discharge per speech therapy
[2020-05-16] MEDS: REMDESIVIR (EUA) 100 MG in Sodium Chloride 0.9% 250 ML 230 ML IV SCH (19:59)
[2020-05-16] MEDS: NPH, Human Insulin Isophane 300 UNIT/3 ML VIAL SC SCH (20:37)
[2020-05-17 06:39] LABS: #Eosinphils 0.4 thou/uL (0.0-0.7); #Lymphocytes 2.1 thou/uL (1.20-3.40); #Monocytes 0.7 thou/uL (0.11-0.59); #Neutrophils 8.2 thou/uL (1.40-6.50); %Basophils 0.1 % (0.0-1.0); %Eosinophils 3.1 % (0.0-10.0); %Lymphocytes 18.8 % (21.0-51.0); %Monocytes 5.7 % (0.0-10.0); %Neutrophils 72.3 % (42.0-75.0); Hemoglobin 10.1 g/dL (12.0-16.0); Mean Corpuscular HGB CONC 32.7 g/dL (32.0-36.0); Mean Corpuscular Hemoglobin 27.1 pg (27.0-31.0); Mean Corpuscular Volume 82.8 fL (78.0-98.0); Mean Platelet Volume 6.7 fL (7.4-10.4); Platelet Count 867 thou/uL (130-400); RBC Distribution Width 16.3 % (11.5-14.5); Red Blood Cell (RBC) Count 3.73 mill/uL (4.20-5.40); White Blood Cell (WBC) Count 11.3 thou/uL (4.8-10.8)
[2020-05-17] MEDS: Insulin Regular 300 UNITS/3 ML VIAL SC PRN ×2 (06:51→13:12)
[2020-05-17 07:01] LABS: ALT (SGPT) 9 U/L (8-55); AST (SGOT) 18 U/L (5-34); Albumin 2.5 g/dL (3.4-4.8); Alkaline Phosphatase 143 U/L (40-110); Anion Gap 13 mmol/L (10-20); BUN (Urea Nitrogen) 19 mg/dL (9.8-20.1); Bilirubin, Direct 0.1 mg/dL (0.1-0.3); Bilirubin, Total Less than 0.2 mg/dL (0.2-1.2); Calc. Creatinine Clearance 69 mL/min (70-130); Calcium 8.3 mg/dL (7.8-10.44); Carbon Dioxide 28 mmol/L (23-31); Chloride 94 mmol/L (98-107); Estimated GFR-MDRD 89; Glucose 184 mg/dL (83-110); Magnesium 2.1 mg/dL (1.6-2.6); Phosphorus 3.5 mg/dL (2.3-4.7); Potassium 5.2 mmol/L (3.5-5.1); Protein, Total 6.8 g/dL (6.0-8.3); Sodium 130 mmol/L (136-145)
[2020-05-17] MEDS: levETIRAcetam 500 mg/5 ml Oral Solution PER TUBE SCH ×2 (07:58→21:06)
[2020-05-17] MEDS: Valproate Sodium 250 mg/5 ml UD Cup PER TUBE SCH ×2 (07:58→21:06)
[2020-05-17] MEDS: PHENobarbital 32.4 MG TAB PER TUBE SCH (07:59)
[2020-05-17] MEDS: Enoxaparin Sodium 30 MG/0.3 ML SYRINGE SC SCH ×2 (07:59→21:06)
[2020-05-17] MEDS: Saccharomyces boulardii 250 MG CAP PER TUBE SCH (08:00)
[2020-05-17] MEDS: Aspirin Chewable 81 MG TAB PER TUBE SCH (08:00)
[2020-05-17] MEDS: Dexamethasone 4 mg/ml Vial SLOW IVP SCH (08:00)
[2020-05-17] MEDS: Pantoprazole 40 MG GRANULES PACKET PER TUBE SCH (08:00)
[2020-05-17] MEDS: NPH, Human Insulin Isophane 300 UNIT/3 ML VIAL SC SCH ×2 (08:01→21:16)
[2020-05-17] MEDS ORDERED: Pharmacy to Dose VANCOMYCIN/RENALLY ADJ ANTIBIOTICS IVPB PRN (19:08)
[2020-05-17] MEDS ORDERED: Vancomycin HCl 1.25 GM in Sodium Chloride 0.9% 250 ML 250 ML IVPB SCH (20:00)
--- NOTE | 2020-05-17 23:23 | PDOC.HOSPP ---
- Subjective Encounter Date: 05/17/20 Encounter Time: 14:00 non-verbal Subjective: Patient seen and examined for sepsis. Tolerating PEG tube feeding. Not safe for oral consistency due to persistent altered mentation. - Objective Vital Signs & Weight: Vital Signs (12 hours) Temp Pulse Resp BP Pulse Ox 05/17/20 21:00 97.5 F L 93 18 149/77 H 97 05/17/20 20:00 97 05/17/20 17:00 97.9 F 101 H 18 120/73 95 Weight Admit Weight 127 lb 9.6 oz Weight 127 lb 9.6 oz I&O: 05/16/20 05/17/20 05/18/20 06:59 06:59 06:59 Intake Total 1557 1630 800 Output Total 250 1600 Balance 1307 30 800 Result Diagrams: 05/17/20 06:11 05/17/20 06:11 Additional Labs: Accuchecks 05/17/20 05/17/20 05/17/20 21:27 12:59 06:07 POC Glucose 233 H 250 H 219 H 05/17/20 00:59 POC Glucose 105 Microbiology 05/12/20 11:15 Venous blood - Left Arm Blood Culture - Preliminary Gram Positive Cocci Hospitalist ROS - Review of Systems ROS unobtainable: due to mental status - Medication Medications: Active Medications Generic Name Dose Route Start Last Admin Trade Name Freq PRN Reason Stop Dose Admin Acetaminophen 650 mg 05/13/20 06:53 05/16/20 20:39 Tylenol Elixir PER TUBE 650 mg Q4H PRN Administration pain/fever Aspirin 81 mg 05/13/20 09:00 05/17/20 08:00 Aspirin Chewable PER TUBE 81 mg DAILY SHAWN Administration Dexamethasone 6 mg 05/13/20 09:00 05/17/20 08:00 Decadron SLOW IVP 6 mg DAILY SHAWN Administration Enoxaparin Sodium 30 mg 05/12/20 21:00 05/17/20 21:06 Lovenox SC 30 mg 0900,2100 SHAWN Administration Insulin Human NPH 10 unit 05/16/20 21:00 05/17/20 21:16 Humulin N SC 10 units BID SHAWN Administration Insulin Human Regular 0 units 05/12/20 17:25 05/16/20 21:22 Humulin R SC 2 unit .BEDTIME SLIDING SC PRN Administration Bedtime Correctional Scale Insulin Human Regular 0 units 05/13/20 20:29 05/17/20 13:12 Humulin R SC 4 unit .MODERATE SLIDING SC PRN Administration Moderate Correctional Scale Levetiracetam 500 mg 05/13/20 09:00 05/17/20 21:06 Keppra Oral Solution PER TUBE 500 mg BID SHAWN Administration Pantoprazole Sodium 40 mg 05/13/20 09:00 05/17/20 08:00 Protonix PER TUBE 40 mg DAILY SHAWN Administration Phenobarbital 97.2 mg 05/13/20 09:00 05/17/20 07:59 Phenobarbital PER TUBE 97.2 mg DAILY SHAWN Administration Saccharomyces Boulardii 250 mg 05/13/20 09:00 05/17/20 08:00 Florastor PER TUBE 250 mg DAILY SHAWN Administration Sodium Chloride 10 ml 05/12/20 16:30 05/13/20 10:06 Flush - Normal Saline IVF 10 ml PRN PRN Administration Saline Flush Valproic Acid 500 mg 05/13/20 09:00 05/17/20 21:06 Depakene Liquid PER TUBE 500 mg BID SHAWN Administration - Exam General Appearance: ill appearing Neck: supple, no JVD Heart: no gallops, no rubs Respiratory: no wheezes, rales, rhonchi Gastrointestinal: soft, no guarding, no rigidity Psychiatric: lethargic Hosp A/P - Plan DVT proph w/lovenox Toxic metabolic encephalopathy Acute hypoxic respiratory failure/sepsis due to COVID 19 pneumonia -s/p convalescent plasma 05/13 -s/p Remdesivir Lactic acidosis due to sepsis Recent hospitalization for enterococcus UTI with bacteremia on amoxicillin Stage IV sacral pressure ulcer Hypomagnesemia/hypophosphatemia Chronic hyponatremia Swallow dysfunction with recent PEG tube placement Seizure disorderon Keppra, valproic acid and phenobarbital Coronary artery disease Diabetes mellitus type II History of CVA Dementia Recent EGD showing duodenitison PPIs Cholelithiasis Questionable masslike area on the recent Abd CT scan PCP to follow Hypertension Plan: 05/17 Completed Remdesivir. Continue Decadron. Blood cultures from [place] came back positive for gram-positive cocci in 2 of 2. Add vancomycin. Monitor vancomycin level. Attempted to call family with no answer. Increase NPH to 15 units daily and 10 units hs. Continue sliding scale. Recheck labs in a.m. 05/16 Complete last dose of Remdesivir today. Continue Decadron. 2 g magnesium today. Recheck labs in a.m. Inflammatory markers improving. Continue PEG tube feeding. Increase NPH to 10 units twice daily. I attempted to call family with no answer. Continue other medications. Discharge planning. 05/15 Continue Remdesivirday 4 with IV Decadron. Replace magnesium. Continue antiepileptic drugs. Continue PEG tube feeding. Patient is not safe to swallow any consistency due to altered mentation. Discontinue amoxicillin after today's dose. Recheck labs in a.m. I attempted to call the family with no answer. Continue sliding scale. Continue other medications. Recheck labs including inflammatory markers in a.m. Add NPH 10 units daily. 05/14 Continue Remdesivir with IV dexamethasone. Patient is unsafe for any diet per speech therapy due to altered mentation. Replace phosphorus. Continue sliding scale. Continue antiepileptic drugs. Discontinue telemetry since patient is pulling wires. Family was updated earlier by RN. A.m. labs. Continue other medications 05/13 Continue IV dexamethasone with Remdesivir. Received convalescent plasma today. Continue nebulizer treatment. Continue PEG tube feeding. Continue wound care. Await speech therapy input for resuming oral diet. Replace phosphorus. Continue amoxicillin until May 15. Continue other medications as above. Infectious disease/palliative care input appreciated. Recheck labs in a.m. resume metformin in 1 to 2 days. 05/12 Patient will be monitored in the COVID unit. Hold IV fluids for now. I discussed with infectious disease. Patient will be started on dexamethasone, Remdesivir with convalescent plasma. PEG tube feeding will be restarted. Will resume seizure medications. Add aspirin due to history of CVA. Change Pepcid to PPIs given her recent EGD findings. Consult wound care. Insulin sliding scale. Continue other medications from the nursing facility. O2 supplementation. Add nebulizer treatment. Recheck labs in a.m. Replace magnesium. Resume po diet when mentation improvesplease note patient was on oral Modified feeds last discharge per speech therapy
[2020-05-18] MEDS: Insulin Regular 300 UNITS/3 ML VIAL SC PRN ×3 (00:39→16:41)
[2020-05-18 06:29] LABS: Phosphorus 3.6 mg/dL (2.3-4.7)
[2020-05-18 06:30] LABS: ALT (SGPT) 10 U/L (8-55); AST (SGOT) 22 U/L (5-34); Albumin 2.8 g/dL (3.4-4.8); Alkaline Phosphatase 140 U/L (40-110); Anion Gap 10 mmol/L (10-20); BUN (Urea Nitrogen) 23 mg/dL (9.8-20.1); Bilirubin, Direct 0.1 mg/dL (0.1-0.3); Bilirubin, Total Less than 0.2 mg/dL (0.2-1.2); Calc. Creatinine Clearance 68 mL/min (70-130); Calcium 8.7 mg/dL (7.8-10.44); Carbon Dioxide 30 mmol/L (23-31); Chloride 94 mmol/L (98-107); Estimated GFR-MDRD 88; Glucose 169 mg/dL (83-110); Magnesium 1.8 mg/dL (1.6-2.6); Potassium 5.4 mmol/L (3.5-5.1); Protein, Total 7.2 g/dL (6.0-8.3); Sodium 129 mmol/L (136-145)
[2020-05-18] MEDS ORDERED: Magnesium 2 GM/50 ML 2 GM in Premix Bag 1 BAG IVPB SCH (07:30)
[2020-05-18] MEDS: PHENobarbital 32.4 MG TAB PER TUBE SCH (08:46)
[2020-05-18] MEDS: Saccharomyces boulardii 250 MG CAP PER TUBE SCH (08:46)
[2020-05-18] MEDS: Dexamethasone 4 mg/ml Vial SLOW IVP SCH (08:46)
[2020-05-18] MEDS: Aspirin Chewable 81 MG TAB PER TUBE SCH (08:46)
[2020-05-18] MEDS: Pantoprazole 40 MG GRANULES PACKET PER TUBE SCH (08:46)
[2020-05-18] MEDS: Valproate Sodium 250 mg/5 ml UD Cup PER TUBE SCH ×2 (08:49→21:56)
[2020-05-18] MEDS: levETIRAcetam 500 mg/5 ml Oral Solution PER TUBE SCH ×2 (08:49→21:56)
[2020-05-18] MEDS: Enoxaparin Sodium 30 MG/0.3 ML SYRINGE SC SCH ×2 (08:49→21:57)
[2020-05-18] MEDS ORDERED: NPH, Human Insulin Isophane 300 UNIT/3 ML VIAL SC SCH (09:00)
[2020-05-18] MEDS: Vancomycin HCl 750 MG in Sodium Chloride 0.9% 250 ML 250 ML IVPB SCH ×2 (10:35→20:51)
--- NOTE | 2020-05-18 12:53 | PDOC.HOSPP ---
- Subjective Encounter Date: 05/18/20 Encounter Time: 11:00 non-verbal Subjective: Seen and examined for sepsis. Tolerating PEG tube feeding. On IV steroids. No significant overnight issues. - Objective Vital Signs & Weight: Vital Signs (12 hours) Temp Pulse Resp BP Pulse Ox 05/18/20 09:54 98.6 F 91 18 105/67 96 05/18/20 08:00 96 05/18/20 05:00 99.7 F H 93 18 106/70 95 Weight Admit Weight 127 lb 9.6 oz Weight 127 lb 9.6 oz I&O: 05/17/20 05/18/20 05/19/20 06:59 06:59 06:59 Intake Total 1630 1770 30 Output Total 1600 500 Balance 30 1270 30 Result Diagrams: 05/17/20 06:11 05/18/20 05:57 Additional Labs: Accuchecks 05/18/20 05/18/20 05/17/20 05:12 00:12 21:27 POC Glucose 150 H 241 H 233 H 05/17/20 12:59 POC Glucose 250 H Microbiology 05/01/20 12:13 Venous blood - Right Hand Blood Culture - Final Enterococcus faecalis 05/12/20 11:15 Venous blood - Left Arm Blood Culture - Preliminary Staphylococcus species Laboratory Tests 05/18/20 05/18/20 05/18/20 05:57 05:57 05:57 D-Dimer 1.31 H Ferritin 225.96 C-Reactive Protein 8.58 H Hospitalist ROS - Review of Systems ROS unobtainable: due to mental status - Medication Medications: Active Medications Generic Name Dose Route Start Last Admin Trade Name Mangoq PRN Reason Stop Dose Admin Acetaminophen 650 mg 05/13/20 06:53 05/16/20 20:39 Tylenol Elixir PER TUBE 650 mg Q4H PRN Administration pain/fever Acetaminophen/Codeine Phosphate 1 tab 05/13/20 06:53 05/18/20 05:32 Tylenol #3 PER TUBE 1 tab Q6H PRN Administration Pain Aspirin 81 mg 05/13/20 09:00 05/18/20 08:46 Aspirin Chewable PER TUBE 81 mg DAILY SHAWN Administration Dexamethasone 6 mg 05/13/20 09:00 05/18/20 08:46 Decadron SLOW IVP 6 mg DAILY SHAWN Administration Enoxaparin Sodium 30 mg 05/12/20 21:00 05/18/20 08:49 Lovenox SC 30 mg 09,2099 SHAWN Administration Vancomycin HCl 750 mg/ Sodium 250 mls @ 250 mls/hr 05/18/20 08:00 05/18/20 10 :35 Chloride IVPB 250 mls SHAWN Administration Insulin Human NPH 15 unit 05/18/20 09:00 05/18/20 08:50 Humulin N SC 15 unit DAILY SHAWN Administration Insulin Human Regular 0 units 05/12/20 17:25 05/16/20 21:22 Humulin R SC 2 unit .BEDTIME SLIDING SC PRN Administration Bedtime Correctional Scale Insulin Human Regular 0 units 05/13/20 20:29 05/18/20 00:39 Humulin R SC 4 unit .MODERATE SLIDING SC PRN Administration Moderate Correctional Scale Levetiracetam 500 mg 05/13/20 09:00 05/18/20 08:49 Keppra Oral Solution PER TUBE 500 mg BID SHAWN Administration Pantoprazole Sodium 40 mg 05/13/20 09:00 05/18/20 08:46 Protonix PER TUBE 40 mg DAILY SHAWN Administration Phenobarbital 97.2 mg 05/13/20 09:00 05/18/20 08:46 Phenobarbital PER TUBE 97.2 mg DAILY SHAWN Administration Saccharomyces Boulardii 250 mg 05/13/20 09:00 05/18/20 08:46 Florastor PER TUBE 250 mg DAILY SHAWN Administration Sodium Chloride 10 ml 05/12/20 16:30 05/13/20 10:06 Flush - Normal Saline IVF 10 ml PRN PRN Administration Saline Flush Sodium Polystyrene Sulfonate 15 gm 05/18/20 11:15 05/18/20 12:49 Kayexalate Oral Susp 15 Gm/60 Ml PER TUBE 05/18/20 14:00 15 gm NOW SHAWN Administration Valproic Acid 500 mg 05/13/20 09:00 05/18/20 08:49 Depakene Liquid PER TUBE 500 mg BID SHAWN Administration - Exam General Appearance: ill appearing Neck: supple, no JVD Respiratory: rales, rhonchi, tachypneic Gastrointestinal: soft, non-distended, no guarding, no rigidity Extremities: no cyanosis Hosp A/P - Plan DVT proph w/lovenox Toxic metabolic encephalopathy Acute hypoxic respiratory failure/sepsis due to COVID 19 pneumonia -s/p convalescent plasma 05/13 -s/p Remdesivir Bacteremia due to gram-positive cocci (from blood cultures from outside ER) Lactic acidosis due to sepsis Recent hospitalization for enterococcus UTI with bacteremiacompleted amoxicillin Stage IV sacral pressure ulcer Hypomagnesemia/hypophosphatemia/hyperkalemia Chronic hyponatremia Swallow dysfunction with recent PEG tube placement Seizure disorderon Keppra, valproic acid and phenobarbital Coronary artery disease Diabetes mellitus type II History of CVA Dementia Recent EGD showing duodenitison PPIs Cholelithiasis Questionable masslike area on the recent Abd CT scan PCP to follow Hypertension Plan: 05/18 Continue IV vancomycin for bacteremia. Infectious disease following. Continue IV steroids. CRP improving. Increase NPH to 20 units daily. Continue NPH 10 units nightly. Continue sliding scale. 1 dose of Kayexalate due to hyperkalemia. Attempted to call family with no answer. A.m. labs. 05/17 Completed Remdesivir. Continue Decadron. Blood cultures from [place] came back positive for gram-positive cocci in 2 of 2. Add vancomycin. Monitor vancomycin level. Attempted to call family with no answer. Increase NPH to 15 units daily and 10 units hs. Continue sliding scale. Recheck labs in a.m. 05/16 Complete last dose of Remdesivir today. Continue Decadron. 2 g magnesium today. Recheck labs in a.m. Inflammatory markers improving. Continue PEG tube feeding. Increase NPH to 10 units twice daily. I attempted to call family with no answer. Continue other medications. Discharge planning. 05/15 Continue Remdesivirday 4 with IV Decadron. Replace magnesium. Continue antiepileptic drugs. Continue PEG tube feeding. Patient is not safe to swallow any consistency due to altered mentation. Discontinue amoxicillin after today's dose. Recheck labs in a.m. I attempted to call the family with no answer. Continue sliding scale. Continue other medications. Recheck labs including inflammatory markers in a.m. Add NPH 10 units daily. 05/14 Continue Remdesivir with IV dexamethasone. Patient is unsafe for any diet per speech therapy due to altered mentation. Replace phosphorus. Continue sliding scale. Continue antiepileptic drugs. Discontinue telemetry since patient is pulling wires. Family was updated earlier by RN. A.m. labs. Continue other medications 05/13 Continue IV dexamethasone with Remdesivir. Received convalescent plasma today. Continue nebulizer treatment. Continue PEG tube feeding. Continue wound care. Await speech therapy input for resuming oral diet. Replace phosphorus. Continue amoxicillin until May 15. Continue other medications as above. Infectious disease/palliative care input appreciated. Recheck labs in a.m. resume metformin in 1 to 2 days. 05/12 Patient will be monitored in the COVID unit. Hold IV fluids for now. I discussed with infectious disease. Patient will be started on dexamethasone, Remdesivir with convalescent plasma. PEG tube feeding will be restarted. Will resume seizure medications. Add aspirin due to history of CVA. Change Pepcid to PPIs given her recent EGD findings. Consult wound care. Insulin sliding scale. Continue other medications from the nursing facility. O2 supplementation. Add nebulizer treatment. Recheck labs in a.m. Replace magnesium. Resume po diet when mentation improvesplease note patient was on oral Modified feeds last discharge per speech therapy
--- NOTE | 2020-05-18 15:06 | PRG ---
DATE OF SERVICE: 05/18/2020 SUBJECTIVE: Ms. Willis is in no distress, a little bit more alert, but not able to interact with the examiner. Does not appear in distress. No diarrhea. OBJECTIVE: VITAL SIGNS: T-max 99.7, blood pressure 105/67, pulse 91, respirations 18, and O2 saturation 96 on 3.5 L nasal cannula. GENERAL: Does not establish eye contact. LUNGS: Symmetric air entry. CARDIAC: S1-S2, regular rate. ABDOMEN: Soft. Gastrostomy appears well. Voiding in the diaper. No bladder distention. NEURO: Exam unchanged. LABORATORY DATA: White cell count 11.3, hemoglobin 10.1, platelets 867. Creatinine 0.66. Liver profile with alkaline phosphatase 140. Transaminases normal. CRP is down to 8.58. The ferritin is down to 225. D-dimer is stable at 1.31. We have from May 12, two sets of blood cultures with Staphylococcus species yet to be identified and susceptibility tested, and then from May 01, there is the Enterococcus faecalis which patient had been treated for. ASSESSMENT AND DISCUSSION: Dementia, cerebrovascular accident, recent episode of urinary tract infection with prior cystitis with transient bacteremia with E faecalis, treated with IV and oral antimicrobial therapy, now with COVID pneumonia. This is the 12th day of illness. Has received Decadron, and there are blood cultures, 2/2, with Staph species. This could represent contamination of the sample. We will have to wait for the full identification of the organism to make a decision. Job ID: [id number] [facility]
[2020-05-18] MEDS: NPH, Human Insulin Isophane 300 UNIT/3 ML VIAL SC SCH (21:57)
[2020-05-19 07:39] LABS: Hemoglobin 9.3 g/dL (12.0-16.0); Mean Corpuscular HGB CONC 31.4 g/dL (32.0-36.0); Mean Corpuscular Hemoglobin 26.4 pg (27.0-31.0); Mean Corpuscular Volume 84.1 fL (78.0-98.0); Mean Platelet Volume 6.4 fL (7.4-10.4); Platelet Count 793 thou/uL (130-400); Red Blood Cell (RBC) Count 3.51 mill/uL (4.20-5.40); White Blood Cell (WBC) Count 11.1 thou/uL (4.8-10.8)
[2020-05-19 07:44] LABS: Vancomycin, Trough 23.3 ug/mL
[2020-05-19 07:46] LABS: Anion Gap 15 mmol/L (10-20); BUN (Urea Nitrogen) 27 mg/dL (9.8-20.1); CRP (Inflammatory) 10.66 mg/dL (= or < 0.5); Calc. Creatinine Clearance 73 mL/min (70-130); Carbon Dioxide 27 mmol/L (23-31); Chloride 94 mmol/L (98-107); Estimated GFR-MDRD Greater than 90; Glucose 131 mg/dL (83-110); Phosphorus 4.1 mg/dL (2.3-4.7); Potassium 4.5 mmol/L (3.5-5.1); Sodium 131 mmol/L (136-145)
[2020-05-19] MEDS ORDERED: Vancomycin HCl 500 MG in Sodium Chloride 0.9% 100 ML IVPB SCH (08:00)
[2020-05-19] MEDS ORDERED: Magnesium 2 GM/50 ML 2 GM in Premix Bag 1 BAG IVPB SCH (08:15)
--- NOTE | 2020-05-19 08:39 | PDOC.HOSPP ---
- Subjective Encounter Date: 05/19/20 Encounter Time: 11:50 Subjective: Patient sleeping, able to arouse but not speaking. - Objective Vital Signs & Weight: Vital Signs (12 hours) Temp Pulse Resp BP Pulse Ox 05/19/20 05:29 96 05/19/20 05:00 98.9 F 83 18 106/69 97 05/19/20 01:00 98.3 F 93 20 112/70 97 05/18/20 21:00 98.2 F 83 20 125/77 96 Weight Admit Weight 127 lb 9.6 oz Weight 127 lb 9.6 oz I&O: 05/18/20 05/19/20 05/20/20 06:59 06:59 06:59 Intake Total 1770 3090 Output Total 500 300 Balance 1270 2790 Result Diagrams: 05/19/20 07:01 05/19/20 07:01 Additional Labs: Accuchecks 05/19/20 05/19/20 05/18/20 06:16 01:42 22:17 POC Glucose 148 H 128 H 141 H 05/18/20 05/18/20 16:06 13:01 POC Glucose 324 H 321 H Hospitalist ROS - Review of Systems ROS unobtainable: due to mental status - Medication Medications: Active Medications Generic Name Dose Route Start Last Admin Trade Name Freq PRN Reason Stop Dose Admin Acetaminophen 650 mg 05/13/20 06:53 05/16/20 20:39 Tylenol Elixir PER TUBE 650 mg Q4H PRN Administration pain/fever Acetaminophen/Codeine Phosphate 1 tab 05/13/20 06:53 05/18/20 05:32 Tylenol #3 PER TUBE 1 tab Q6H PRN Administration Pain Aspirin 81 mg 05/13/20 09:00 05/18/20 08:46 Aspirin Chewable PER TUBE 81 mg DAILY SHAWN Administration Dexamethasone 6 mg 05/13/20 09:00 05/18/20 08:46 Decadron SLOW IVP 6 mg DAILY SHAWN Administration Enoxaparin Sodium 30 mg 05/12/20 21:00 05/18/20 21:57 Lovenox SC 30 mg 0900,2100 SHAWN Administration Insulin Human NPH 10 unit 05/18/20 21:00 05/18/20 21:57 Humulin N SC 10 units HS SHAWN Administration Insulin Human Regular 0 units 05/12/20 17:25 05/16/20 21:22 Humulin R SC 2 unit .BEDTIME SLIDING SC PRN Administration Bedtime Correctional Scale Insulin Human Regular 0 units 05/13/20 20:29 05/18/20 16:41 Humulin R SC 8 unit .MODERATE SLIDING SC PRN Administration Moderate Correctional Scale Levetiracetam 500 mg 05/13/20 09:00 05/18/20 21:56 Keppra Oral Solution PER TUBE 500 mg BID SHAWN Administration Pantoprazole Sodium 40 mg 05/13/20 09:00 05/18/20 08:46 Protonix PER TUBE 40 mg DAILY SHAWN Administration Phenobarbital 97.2 mg 05/13/20 09:00 05/18/20 08:46 Phenobarbital PER TUBE 97.2 mg DAILY SHAWN Administration Saccharomyces Boulardii 250 mg 05/13/20 09:00 05/18/20 08:46 Florastor PER TUBE 250 mg DAILY SHAWN Administration Sodium Chloride 10 ml 05/12/20 16:30 05/13/20 10:06 Flush - Normal Saline IVF 10 ml PRN PRN Administration Saline Flush Valproic Acid 500 mg 05/13/20 09:00 05/18/20 21:56 Depakene Liquid PER TUBE 500 mg BID SHAWN Administration - Exam General Appearance: NAD ENT: moist mucosa Heart: RRR, no murmur, no gallops, no rubs Respiratory: CTAB, no wheezes, no rales, no ronchi Gastrointestinal: soft, normal bowel sounds Gastrointestinal - other findings: abdominal binder in place, tube feedings running Extremities: no edema Psychiatric: not oriented, lethargic Hosp A/P (1) Toxic metabolic encephalopathy Code(s): G92 - TOXIC ENCEPHALOPATHY Status: Acute (2) Pneumonia due to COVID-19 virus Code(s): U07.1 - COVID-19; J12.89 - OTHER VIRAL PNEUMONIA Status: Acute (3) Acute respiratory failure with hypoxia Code(s): J96.01 - ACUTE RESPIRATORY FAILURE WITH HYPOXIA Status: Acute (4) Sepsis Code(s): A41.9 - SEPSIS, UNSPECIFIED ORGANISM Status: Acute (5) Stage IV pressure ulcer of sacral region Code(s): L89.154 - PRESSURE ULCER OF SACRAL REGION, STAGE 4 Status: Acute (6) Hyperkalemia Code(s): E87.5 - HYPERKALEMIA Status: Resolved (7) Thrombocytosis Status: Acute (8) Dysphagia Code(s): R13.10 - DYSPHAGIA, UNSPECIFIED Status: Chronic Qualifiers: Dysphagia type: oropharyngeal phase Qualified Code(s): R13.12 - Dysphagia, oropharyngeal phase (9) S/P percutaneous endoscopic gastrostomy (PEG) tube placement Code(s): Z93.1 - GASTROSTOMY STATUS Status: Chronic (10) Seizure disorder Code(s): G40.909 - EPILEPSY, UNSP, NOT INTRACTABLE, WITHOUT STATUS EPILEPTICUS Status: Chronic (11) T2DM (type 2 diabetes mellitus) Status: Chronic Qualifiers: Diabetes mellitus termite control representative insulin use: with termite control representative use Diabetes mellitus complication detail: with chronic kidney disease Chronic kidney disease stage: stage 3 (moderate) (12) Dementia Code(s): F03.90 - UNSPECIFIED DEMENTIA WITHOUT BEHAVIORAL DISTURBANCE Status: Chronic (13) CAD (coronary artery disease) Code(s): I25.10 - ATHSCL HEART DISEASE OF [place] CORONARY ARTERY W/O ANG PCTRS Status: Chronic (14) Mass of stomach Code(s): K31.89 - OTHER DISEASES OF STOMACH AND DUODENUM Status: Chronic Plan: seen on previous CT scan earlier in the month, needs to f/u with PCP about this. - Plan Plan: 05/19 Blood cultures with 2/2 Staph epi., suspect contaminant. Will d/c IV vanc if Dr. Bravo agrees. Continuing on IV steroids (day 6/10, NPH 20u AM/ 10u PM. Blood sugars improved control. Attempted to call sister and JACKELYN Willis but no answer at phone [phone] 05/18 Continue IV vancomycin for bacteremia. Infectious disease following. Continue IV steroids. CRP improving. Increase NPH to 20 units daily. Continue NPH 10 units nightly. Continue sliding scale. 1 dose of Kayexalate due to hyperkalemia. Attempted to call family with no answer. A.m. labs. 05/17 Completed Remdesivir. Continue Decadron. Blood cultures from [place] came back positive for gram-positive cocci in 2 of 2. Add vancomycin. Monitor vancomycin level. Attempted to call family with no answer. Increase NPH to 15 units daily and 10 units hs. Continue sliding scale. Recheck labs in a.m. 05/16 Complete last dose of Remdesivir today. Continue Decadron. 2 g magnesium today. Recheck labs in a.m. Inflammatory markers improving. Continue PEG tube feeding. Increase NPH to 10 units twice daily. I attempted to call family with no answer. Continue other medications. Discharge planning. 05/15 Continue Remdesivirday 4 with IV Decadron. Replace magnesium. Continue antiepileptic drugs. Continue PEG tube feeding. Patient is not safe to swallow any consistency due to altered mentation. Discontinue amoxicillin after today's dose. Recheck labs in a.m. I attempted to call the family with no answer. Continue sliding scale. Continue other medications. Recheck labs including inflammatory markers in a.m. Add NPH 10 units daily. 05/14 Continue Remdesivir with IV dexamethasone. Patient is unsafe for any diet per speech therapy due to altered mentation. Replace phosphorus. Continue sliding scale. Continue antiepileptic drugs. Discontinue telemetry since patient is pulling wires. Family was updated earlier by RN. ATrentonm. labs. Continue other medications 05/13 Continue IV dexamethasone with Remdesivir. Received convalescent plasma today. Continue nebulizer treatment. Continue PEG tube feeding. Continue wound care. Await speech therapy input for resuming oral diet. Replace phosphorus. Continue amoxicillin until May 15. Continue other medications as above. Infectious disease/palliative care input appreciated. Recheck labs in a.m. resume metformin in 1 to 2 days. 05/12 Patient will be monitored in the COVID unit. Hold IV fluids for now. I discussed with infectious disease. Patient will be started on dexamethasone, Remdesivir with convalescent plasma. PEG tube feeding will be restarted. Will resume seizure medications. Add aspirin due to history of CVA. Change Pepcid to PPIs given her recent EGD findings. Consult wound care. Insulin sliding scale. Continue other medications from the nursing facility. O2 supplementation. Add nebulizer treatment. Recheck labs in a.m. Replace magnesium. Resume po diet when mentation improvesplease note patient was on oral Modified feeds last discharge per speech therapy
[2020-05-19] MEDS: PHENobarbital 32.4 MG TAB PER TUBE SCH (08:53)
[2020-05-19] MEDS: Aspirin Chewable 81 MG TAB PER TUBE SCH (08:53)
[2020-05-19] MEDS: Pantoprazole 40 MG GRANULES PACKET PER TUBE SCH (08:53)
[2020-05-19] MEDS: Valproate Sodium 250 mg/5 ml UD Cup PER TUBE SCH ×2 (08:53→22:10)
[2020-05-19] MEDS: levETIRAcetam 500 mg/5 ml Oral Solution PER TUBE SCH ×2 (08:53→22:10)
[2020-05-19] MEDS: Enoxaparin Sodium 30 MG/0.3 ML SYRINGE SC SCH ×2 (08:53→22:10)
[2020-05-19] MEDS: Saccharomyces boulardii 250 MG CAP PER TUBE SCH (08:53)
[2020-05-19] MEDS: Dexamethasone 4 mg/ml Vial SLOW IVP SCH (09:02)
[2020-05-19] MEDS: NPH, Human Insulin Isophane 300 UNIT/3 ML VIAL SC SCH ×2 (09:04→22:11)
[2020-05-19 10:43] LABS: Anisocytosis SLIGHT = 6-15 cells (100X) (0-5/hpf); Band 3 % (5-11); Eosinophils 1 % (0-10); Hypochromia SLIGHT = 6-15 cells (100X) (0-5/hpf); Lymphocytes 13 % (21-51); MDiff Complete? YES; Monocytes 14 % (0-10); Neutrophil 68 % (42-75); Platelet Morphology Comment Appears Increased; Polychromasia SLIGHT = 2-3 cells (100X) (0-2/hpf); Reactive Lymphocytes 1 % (0-10)
[2020-05-19] MEDS: Insulin Regular 300 UNITS/3 ML VIAL SC PRN ×2 (13:47→17:32)
[2020-05-20] MEDS: Insulin Regular 300 UNITS/3 ML VIAL SC PRN ×3 (07:14→17:49)
[2020-05-20] MEDS: Dexamethasone 4 mg/ml Vial SLOW IVP SCH (08:24)
[2020-05-20] MEDS: Aspirin Chewable 81 MG TAB PER TUBE SCH (08:25)
[2020-05-20] MEDS: Enoxaparin Sodium 30 MG/0.3 ML SYRINGE SC SCH ×2 (08:25→22:13)
[2020-05-20] MEDS: PHENobarbital 32.4 MG TAB PER TUBE SCH (08:25)
[2020-05-20] MEDS: Valproate Sodium 250 mg/5 ml UD Cup PER TUBE SCH ×2 (08:26→22:12)
[2020-05-20] MEDS: Pantoprazole 40 MG GRANULES PACKET PER TUBE SCH (08:26)
[2020-05-20] MEDS: levETIRAcetam 500 mg/5 ml Oral Solution PER TUBE SCH ×2 (08:26→22:12)
[2020-05-20] MEDS: Saccharomyces boulardii 250 MG CAP PER TUBE SCH (08:26)
[2020-05-20] MEDS: NPH, Human Insulin Isophane 300 UNIT/3 ML VIAL SC SCH ×2 (08:27→22:13)
--- NOTE | 2020-05-20 10:50 | PDOC.HOSPP ---
- Subjective Encounter Date: 05/20/20 Encounter Time: 11:10 Subjective: Patient unchanged overnight. She does say "How are you?" and answers "Yeah" occasionally to questions but doesn't open her eyes or have any meaningful conversation. - Objective Vital Signs & Weight: Vital Signs (12 hours) Temp Pulse Resp BP Pulse Ox 05/20/20 05:00 98.7 F 79 22 H 106/68 100 05/20/20 02:00 99 Weight Admit Weight 127 lb 9.6 oz Weight 127 lb 9.6 oz I&O: 05/19/20 05/20/20 05/21/20 06:59 06:59 06:59 Intake Total 3090 1685 30 Output Total 300 700 Balance 2790 985 30 Result Diagrams: 05/19/20 07:01 05/19/20 07:01 Additional Labs: Accuchecks 05/20/20 05/20/20 05/19/20 04:40 02:02 22:26 POC Glucose 160 H 203 H 170 H 05/19/20 05/19/20 17:22 13:47 POC Glucose 219 H 201 H Hospitalist ROS - Review of Systems ROS unobtainable: due to mental status - Medication Medications: Active Medications Generic Name Dose Route Start Last Admin Trade Name Freq PRN Reason Stop Dose Admin Acetaminophen 650 mg 05/13/20 06:53 05/16/20 20:39 Tylenol Elixir PER TUBE 650 mg Q4H PRN Administration pain/fever Acetaminophen/Codeine Phosphate 1 tab 05/13/20 06:53 05/18/20 05:32 Tylenol #3 PER TUBE 1 tab Q6H PRN Administration Pain Aspirin 81 mg 05/13/20 09:00 05/20/20 08:25 Aspirin Chewable PER TUBE 81 mg DAILY SHAWN Administration Dexamethasone 6 mg 05/13/20 09:00 05/20/20 08:24 Decadron SLOW IVP 6 mg DAILY SHAWN Administration Enoxaparin Sodium 30 mg 05/12/20 21:00 05/20/20 08:25 Lovenox SC 30 mg 0900,2100 SHAWN Administration Insulin Human NPH 10 unit 05/18/20 21:00 05/19/20 22:11 Humulin N SC 10 units HS SHAWN Administration Insulin Human NPH 20 unit 05/19/20 09:00 05/20/20 08:27 Humulin N SC 20 unit DAILY SHAWN Administration Insulin Human Regular 0 units 05/12/20 17:25 05/16/20 21:22 Humulin R SC 2 unit .BEDTIME SLIDING SC PRN Administration Bedtime Correctional Scale Insulin Human Regular 0 units 05/13/20 20:29 05/20/20 07:14 Humulin R SC 2 unit .MODERATE SLIDING SC PRN Administration Moderate Correctional Scale Levetiracetam 500 mg 05/13/20 09:00 05/20/20 08:26 Keppra Oral Solution PER TUBE 500 mg BID SHAWN Administration Pantoprazole Sodium 40 mg 05/13/20 09:00 05/20/20 08:26 Protonix PER TUBE 40 mg DAILY SHAWN Administration Phenobarbital 97.2 mg 05/13/20 09:00 05/20/20 08:25 Phenobarbital PER TUBE 97.2 mg DAILY SHAWN Administration Saccharomyces Boulardii 250 mg 05/13/20 09:00 05/20/20 08:26 Florastor PER TUBE 250 mg DAILY SHAWN Administration Sodium Chloride 10 ml 05/12/20 16:30 05/13/20 10:06 Flush - Normal Saline IVF 10 ml PRN PRN Administration Saline Flush Valproic Acid 500 mg 05/13/20 09:00 05/20/20 08:26 Depakene Liquid PER TUBE 500 mg BID SHAWN Administration - Exam General Appearance: NAD General - other findings: sleeping, eyes closed, speaks occ pleasantry to stimulation ENT: moist mucosa Heart: RRR, no murmur, no gallops, no rubs Respiratory: CTAB, no wheezes, no rales, no ronchi Gastrointestinal: soft, non-tender, non-distended, normal bowel sounds Psychiatric: not oriented, lethargic Hosp A/P (1) Toxic metabolic encephalopathy Code(s): G92 - TOXIC ENCEPHALOPATHY Status: Acute (2) Pneumonia due to COVID-19 virus Code(s): U07.1 - COVID-19; J12.89 - OTHER VIRAL PNEUMONIA Status: Acute (3) Acute respiratory failure with hypoxia Code(s): J96.01 - ACUTE RESPIRATORY FAILURE WITH HYPOXIA Status: Acute (4) Sepsis Code(s): A41.9 - SEPSIS, UNSPECIFIED ORGANISM Status: Acute (5) Stage IV pressure ulcer of sacral region Code(s): L89.154 - PRESSURE ULCER OF SACRAL REGION, STAGE 4 Status: Acute (6) Hyperkalemia Code(s): E87.5 - HYPERKALEMIA Status: Resolved (7) Thrombocytosis Status: Acute (8) Dysphagia Code(s): R13.10 - DYSPHAGIA, UNSPECIFIED Status: Chronic Qualifiers: Dysphagia type: oropharyngeal phase Qualified Code(s): R13.12 - Dysphagia, oropharyngeal phase (9) S/P percutaneous endoscopic gastrostomy (PEG) tube placement Code(s): Z93.1 - GASTROSTOMY STATUS Status: Chronic (10) Seizure disorder Code(s): G40.909 - EPILEPSY, UNSP, NOT INTRACTABLE, WITHOUT STATUS EPILEPTICUS Status: Chronic (11) T2DM (type 2 diabetes mellitus) Status: Chronic Qualifiers: Diabetes mellitus snf insulin use: with snf use Diabetes mellitus complication detail: with chronic kidney disease Chronic kidney disease stage: stage 3 (moderate) (12) Dementia Code(s): F03.90 - UNSPECIFIED DEMENTIA WITHOUT BEHAVIORAL DISTURBANCE Status: Chronic (13) CAD (coronary artery disease) Code(s): I25.10 - ATHSCL HEART DISEASE OF [place] CORONARY ARTERY W/O ANG PCTRS Status: Chronic (14) Mass of stomach Code(s): K31.89 - OTHER DISEASES OF STOMACH AND DUODENUM Status: Chronic - Plan Plan: 05/20 Dexamethasone day 04/04, blood sugar well controlled, off all antibiotics, back to care home when cleared from ID standpoint as no longer contagious 05/19 Blood cultures with 2/2 Staph epi., suspect contaminant. Will d/c IV vanc if Dr. Bravo agrees. Continuing on IV steroids (day 03/05, NPH 20u AM/ 10u PM. Blood sugars improved control. Attempted to call sister and MPOAristeo Willis but no answer at phone [phone] 05/18 Continue IV vancomycin for bacteremia. Infectious disease following. Continue IV steroids. CRP improving. Increase NPH to 20 units daily. Continue NPH 10 units nightly. Continue sliding scale. 1 dose of Kayexalate due to hyperkalemia. Attempted to call family with no answer. A.m. labs. 05/17 Completed Remdesivir. Continue Decadron. Blood cultures from [place] came back positive for gram-positive cocci in 2 of 2. Add vancomycin. Monitor vancomycin level. Attempted to call family with no answer. Increase NPH to 15 units daily and 10 units hs. Continue sliding scale. Recheck labs in a.m. 05/16 Complete last dose of Remdesivir today. Continue Decadron. 2 g magnesium today. Recheck labs in a.m. Inflammatory markers improving. Continue PEG tube feeding. Increase NPH to 10 units twice daily. I attempted to call family with no answer. Continue other medications. Discharge planning. 05/15 Continue Remdesivirday 4 with IV Decadron. Replace magnesium. Continue antiepileptic drugs. Continue PEG tube feeding. Patient is not safe to swallow any consistency due to altered mentation. Discontinue amoxicillin after today's dose. Recheck labs in a.m. I attempted to call the family with no answer. Continue sliding scale. Continue other medications. Recheck labs including inflammatory markers in a.m. Add NPH 10 units daily. 05/14 Continue Remdesivir with IV dexamethasone. Patient is unsafe for any diet per speech therapy due to altered mentation. Replace phosphorus. Continue sliding scale. Continue antiepileptic drugs. Discontinue telemetry since patient is pulling wires. Family was updated earlier by RN. A.m. labs. Continue other medications 05/13 Continue IV dexamethasone with Remdesivir. Received convalescent plasma today. Continue nebulizer treatment. Continue PEG tube feeding. Continue wound care. Await speech therapy input for resuming oral diet. Replace phosphorus. Continue amoxicillin until May 15. Continue other medications as above. Infectious disease/palliative care input appreciated. Recheck labs in a.m. resume metformin in 1 to 2 days. 05/12 Patient will be monitored in the COVID unit. Hold IV fluids for now. I discussed with infectious disease. Patient will be started on dexamethasone, Remdesivir with convalescent plasma. PEG tube feeding will be restarted. Will resume seizure medications. Add aspirin due to history of CVA. Change Pepcid to PPIs given her recent EGD findings. Consult wound care. Insulin sliding scale. Continue other medications from the nursing facility. O2 supplementation. Add nebulizer treatment. Recheck labs in a.m. Replace magnesium. Resume po diet when mentation improvesplease note patient was on oral Modified feeds last discharge per speech therapy
[2020-05-21] MEDS: levETIRAcetam 500 mg/5 ml Oral Solution PER TUBE SCH ×2 (08:33→21:21)
[2020-05-21] MEDS: Valproate Sodium 250 mg/5 ml UD Cup PER TUBE SCH ×2 (08:33→21:21)
[2020-05-21] MEDS: Pantoprazole 40 MG GRANULES PACKET PER TUBE SCH (08:33)
[2020-05-21] MEDS: NPH, Human Insulin Isophane 300 UNIT/3 ML VIAL SC SCH ×2 (08:33→21:22)
[2020-05-21] MEDS: PHENobarbital 32.4 MG TAB PER TUBE SCH (08:34)
[2020-05-21] MEDS: Saccharomyces boulardii 250 MG CAP PER TUBE SCH (08:34)
[2020-05-21] MEDS: Dexamethasone 4 mg/ml Vial SLOW IVP SCH (08:34)
[2020-05-21] MEDS: Aspirin Chewable 81 MG TAB PER TUBE SCH (08:34)
[2020-05-21] MEDS: Enoxaparin Sodium 30 MG/0.3 ML SYRINGE SC SCH ×2 (08:34→21:21)
--- NOTE | 2020-05-21 09:19 | PDOC.HOSPP ---
- Subjective Encounter Date: 05/21/20 Encounter Time: 12:10 Subjective: Patient will occasionally answer 1-2 words but not making any sense. - Objective Vital Signs & Weight: Weight Admit Weight 127 lb 9.6 oz Weight 127 lb 9.6 oz I&O: 05/20/20 05/21/20 05/22/20 06:59 06:59 06:59 Intake Total 1685 1610 Output Total 700 1150 Balance 985 460 Result Diagrams: 05/19/20 07:01 05/19/20 07:01 Additional Labs: Accuchecks 05/21/20 05/20/20 05/20/20 06:22 22:28 17:45 POC Glucose 162 H 139 H 215 H 05/20/20 13:31 POC Glucose 200 H Hospitalist ROS - Review of Systems ROS unobtainable: due to mental status - Medication Medications: Active Medications Generic Name Dose Route Start Last Admin Trade Name Freq PRN Reason Stop Dose Admin Acetaminophen 650 mg 05/13/20 06:53 05/16/20 20:39 Tylenol Elixir PER TUBE 650 mg Q4H PRN Administration pain/fever Acetaminophen/Codeine Phosphate 1 tab 05/13/20 06:53 05/18/20 05:32 Tylenol #3 PER TUBE 1 tab Q6H PRN Administration Pain Aspirin 81 mg 05/13/20 09:00 05/21/20 08:34 Aspirin Chewable PER TUBE 81 mg DAILY SHAWN Administration Dexamethasone 6 mg 05/13/20 09:00 05/21/20 08:34 Decadron SLOW IVP 6 mg DAILY SHAWN Administration Enoxaparin Sodium 30 mg 05/12/20 21:00 05/21/20 08:34 Lovenox SC 30 mg 0900,2100 SHAWN Administration Insulin Human NPH 10 unit 05/18/20 21:00 05/20/20 22:13 Humulin N SC 10 units HS SHAWN Administration Insulin Human NPH 20 unit 05/19/20 09:00 05/21/20 08:33 Humulin N SC 20 unit DAILY SHAWN Administration Insulin Human Regular 0 units 05/12/20 17:25 05/16/20 21:22 Humulin R SC 2 unit .BEDTIME SLIDING SC PRN Administration Bedtime Correctional Scale Insulin Human Regular 0 units 05/13/20 20:29 05/20/20 17:49 Humulin R SC 4 unit .MODERATE SLIDING SC PRN Administration Moderate Correctional Scale Levetiracetam 500 mg 05/13/20 09:00 05/21/20 08:33 Keppra Oral Solution PER TUBE 500 mg BID SHAWN Administration Pantoprazole Sodium 40 mg 05/13/20 09:00 05/21/20 08:33 Protonix PER TUBE 40 mg DAILY SHAWN Administration Phenobarbital 97.2 mg 05/13/20 09:00 05/21/20 08:34 Phenobarbital PER TUBE 97.2 mg DAILY SHAWN Administration Saccharomyces Boulardii 250 mg 05/13/20 09:00 05/21/20 08:34 Florastor PER TUBE 250 mg DAILY SHAWN Administration Sodium Chloride 10 ml 05/12/20 16:30 05/13/20 10:06 Flush - Normal Saline IVF 10 ml PRN PRN Administration Saline Flush Valproic Acid 500 mg 05/13/20 09:00 05/21/20 08:33 Depakene Liquid PER TUBE 500 mg BID SHAWN Administration - Exam General Appearance: NAD General - other findings: eyes closed ENT: moist mucosa Heart: RRR, no murmur, no gallops, no rubs Respiratory: CTAB, no wheezes, no rales, no ronchi Gastrointestinal: soft, normal bowel sounds Gastrointestinal - other findings: abdominal binder over PEG tube in place Psychiatric: not oriented, lethargic Hosp A/P (1) Toxic metabolic encephalopathy Code(s): G92 - TOXIC ENCEPHALOPATHY Status: Acute (2) Pneumonia due to COVID-19 virus Code(s): U07.1 - COVID-19; J12.89 - OTHER VIRAL PNEUMONIA Status: Acute (3) Acute respiratory failure with hypoxia Code(s): J96.01 - ACUTE RESPIRATORY FAILURE WITH HYPOXIA Status: Acute (4) Sepsis Code(s): A41.9 - SEPSIS, UNSPECIFIED ORGANISM Status: Acute (5) Stage IV pressure ulcer of sacral region Code(s): L89.154 - PRESSURE ULCER OF SACRAL REGION, STAGE 4 Status: Acute (6) Hyperkalemia Code(s): E87.5 - HYPERKALEMIA Status: Resolved (7) Thrombocytosis Status: Acute (8) Dysphagia Code(s): R13.10 - DYSPHAGIA, UNSPECIFIED Status: Chronic Qualifiers: Dysphagia type: oropharyngeal phase Qualified Code(s): R13.12 - Dysphagia, oropharyngeal phase (9) S/P percutaneous endoscopic gastrostomy (PEG) tube placement Code(s): Z93.1 - GASTROSTOMY STATUS Status: Chronic (10) Seizure disorder Code(s): G40.909 - EPILEPSY, UNSP, NOT INTRACTABLE, WITHOUT STATUS EPILEPTICUS Status: Chronic (11) T2DM (type 2 diabetes mellitus) Status: Chronic Qualifiers: Diabetes mellitus buttermaker helper insulin use: with alf use Diabetes mellitus complication detail: with chronic kidney disease Chronic kidney disease stage: stage 3 (moderate) (12) Dementia Code(s): F03.90 - UNSPECIFIED DEMENTIA WITHOUT BEHAVIORAL DISTURBANCE Status: Chronic (13) CAD (coronary artery disease) Code(s): I25.10 - ATHSCL HEART DISEASE OF [place] CORONARY ARTERY W/O ANG PCTRS Status: Chronic (14) Mass of stomach Code(s): K31.89 - OTHER DISEASES OF STOMACH AND DUODENUM Status: Chronic - Plan Plan: 05/21 Dexamethasone day 05/05, full dose Lovenox, blood sugar well controlled, off all antibiotics, back to NH when cleared by ID- spoke with Dr. Bravo and given severity of Covid he recommends 7 more days before cleared from Covid-19 isolation. 05/20 Dexamethasone day 04/04, blood sugar well controlled, off all antibiotics, back to skilled nursing when cleared from ID standpoint as no longer contagious 05/19 Blood cultures with 2/2 Staph epi., suspect contaminant. Will d/c IV vanc if Dr. Bravo agrees. Continuing on IV steroids (day 03/05, NPH 20u AM/ 10u PM. Blood sugars improved control. Attempted to call sister and JACKELYN Willis but no answer at phone [phone] 05/18 Continue IV vancomycin for bacteremia. Infectious disease following. Continue IV steroids. CRP improving. Increase NPH to 20 units daily. Continue NPH 10 units nightly. Continue sliding scale. 1 dose of Kayexalate due to hyperkalemia. Attempted to call family with no answer. A.m. labs. 05/17 Completed Remdesivir. Continue Decadron. Blood cultures [place] came back positive for gram-positive cocci in 2 of 2. Add vancomycin. Monitor vancomycin level. Attempted to call family with no answer. Increase NPH to 15 units daily and 10 units hs. Continue sliding scale. Recheck labs in a.m. 05/16 Complete last dose of Remdesivir today. Continue Decadron. 2 g magnesium today. Recheck labs in a.m. Inflammatory markers improving. Continue PEG tube feeding. Increase NPH to 10 units twice daily. I attempted to call family with no answer. Continue other medications. Discharge planning. 05/12 Patient will be monitored in the COVID unit. Hold IV fluids for now. I discussed with infectious disease. Patient will be started on dexamethasone, Remdesivir with convalescent plasma. PEG tube feeding will be restarted. Will resume seizure medications. Add aspirin due to history of CVA. Change Pepcid to PPIs given her recent EGD findings. Consult wound care. Insulin sliding scale. Continue other medications from the nursing facility. O2 supplementation. Add nebulizer treatment. Recheck labs in a.m. Replace magnesium. Resume po diet when mentation improvesplease note patient was on oral Modified feeds last discharge per speech therapy
--- NOTE | 2020-05-21 12:31 | PDOC.PALPN ---
Palliative Progress Note - Subjective Contracted, totally dependent for all ADL, responsive with on to two words however nonsensical. - Objective Vital Signs: Vital Signs - Most Recent Temp Pulse Resp BP Pulse Ox 97.7 F 85 18 138/85 100 05/20/20 20:00 05/20/20 20:00 05/20/20 20:00 05/20/20 20:00 05/20/20 20:00 - Physical Exam Constitutional: cachectic, ill appearing HEENT: moist MMs Respiratory: no wheezing, unlabored breathing, diminished lung sound Cardiovascular: RRR Gastrointestinal: soft, non-tender Deviation from normal: peg Genitourinary: incontinent Musculoskeletal: diffuse muscle atrophy Skin: cap refill <2 seconds, fragile Deviation from normal: chronic sacral wound Deviation from normal: unable to determine orientation - Assessment (1) COVID-19 Code(s): U07.1 - COVID-19 Current Visit: Yes Status: Acute (2) Dysphagia Code(s): R13.10 - DYSPHAGIA, UNSPECIFIED Current Visit: No Status: Chronic Qualifiers: Dysphagia type: oropharyngeal phase Qualified Code(s): R13.12 - Dysphagia, oropharyngeal phase (3) Palliative care encounter Code(s): Z51.5 - ENCOUNTER FOR PALLIATIVE CARE Current Visit: No Status: Acute (4) Anemia in chronic kidney disease (CKD) Code(s): N18.9 - CHRONIC KIDNEY DISEASE, UNSPECIFIED; D63.1 - ANEMIA IN CHRONIC KIDNEY DISEASE Current Visit: No Status: Chronic Qualifiers: Chronic kidney disease stage: stage 3 (moderate) Qualified Code(s): N18.3 - Chronic kidney disease, stage 3 (moderate); D63.1 - Anemia in chronic kidney disease; D63.1 - Anemia in chronic kidney disease (5) Developmental delay, severe Code(s): R62.50 - UNSP LACK OF EXPECTED NORMAL PHYSIOL DEV IN CHILDHOOD Current Visit: No Status: Chronic (6) T2DM (type 2 diabetes mellitus) Current Visit: No Status: Chronic Qualifiers: Diabetes mellitus rodent exterminator insulin use: with senior living use Diabetes mellitus complication detail: with chronic kidney disease Chronic kidney disease stage: stage 3 (moderate) (7) Encephalopathy Code(s): G93.40 - ENCEPHALOPATHY, UNSPECIFIED Current Visit: No Status: Ruled-out - Plan Plan: Prior communication with patient sister in relation to patient status and discussion of Goal of Care. Initially sister confirmed patient to continue with full resuscitation measures and aggressive therapies. Attempted to discuss meaningful recovery. Currently patient sister is no longer reachable Palliative Care will sign off as surrogate decision maker for patient who is the sister has expressed in prior conversations that she desires for her sister to continue with all aggressive treatment and full resuscitation measures. [20] minutes spent on this encounter with >50% of the time in counseling and coordination of care. - ROS Non Response: due to mental status
[2020-05-21] MEDS: Insulin Regular 300 UNITS/3 ML VIAL SC PRN ×2 (12:41→16:52)
[2020-05-22 05:31] LABS: #Eosinphils 0.3 thou/uL (0.0-0.7); #Lymphocytes 2.5 thou/uL (1.20-3.40); #Monocytes 1.2 thou/uL (0.11-0.59); #Neutrophils 5.9 thou/uL (1.40-6.50); %Basophils 0.4 % (0.0-1.0); %Eosinophils 2.8 % (0.0-10.0); %Monocytes 12.4 % (0.0-10.0); %Neutrophils 59.3 % (42.0-75.0); Hemoglobin 10.2 g/dL (12.0-16.0); Mean Corpuscular HGB CONC 31.7 g/dL (32.0-36.0); Mean Corpuscular Hemoglobin 26.5 pg (27.0-31.0); Mean Corpuscular Volume 83.6 fL (78.0-98.0); Mean Platelet Volume 6.3 fL (7.4-10.4); Platelet Count 878 thou/uL (130-400); RBC Distribution Width 17.9 % (11.5-14.5); Red Blood Cell (RBC) Count 3.83 mill/uL (4.20-5.40)
[2020-05-22 05:50] LABS: Anion Gap 15 mmol/L (10-20); BUN (Urea Nitrogen) 25 mg/dL (9.8-20.1); CRP (Inflammatory) 5.97 mg/dL (= or < 0.5); Calc. Creatinine Clearance 66 mL/min (70-130); Calcium 8.7 mg/dL (7.8-10.44); Carbon Dioxide 27 mmol/L (23-31); Chloride 92 mmol/L (98-107); Estimated GFR-MDRD 85; Glucose 124 mg/dL (83-110); Potassium 4.9 mmol/L (3.5-5.1); Sodium 129 mmol/L (136-145)
--- NOTE | 2020-05-22 08:13 | PDOC.HOSPP ---
- Subjective Encounter Date: 05/22/20 Encounter Time: 10:50 non-verbal Subjective: Patient without changes overnight. Opening her eyes some this morning but not speaking. - Objective Vital Signs & Weight: Vital Signs (12 hours) Temp Pulse Resp BP Pulse Ox 05/21/20 21:00 98.6 F 88 16 126/83 98 Weight Admit Weight 127 lb 9.6 oz Weight 127 lb 9.6 oz I&O: 05/21/20 05/22/20 05/23/20 06:59 06:59 06:59 Intake Total 1610 1755 Output Total 1150 300 Balance 460 1455 Result Diagrams: 05/22/20 05:22 05/22/20 05:22 Additional Labs: Accuchecks 05/22/20 05/21/20 05/21/20 06:42 21:33 16:52 POC Glucose 177 H 144 H 173 H 05/21/20 12:34 POC Glucose 184 H Hospitalist ROS - Review of Systems ROS unobtainable: due to mental status - Medication Medications: Active Medications Generic Name Dose Route Start Last Admin Trade Name Freq PRN Reason Stop Dose Admin Acetaminophen 650 mg 05/13/20 06:53 05/16/20 20:39 Tylenol Elixir PER TUBE 650 mg Q4H PRN Administration pain/fever Acetaminophen/Codeine Phosphate 1 tab 05/13/20 06:53 05/18/20 05:32 Tylenol #3 PER TUBE 1 tab Q6H PRN Administration Pain Aspirin 81 mg 05/13/20 09:00 05/21/20 08:34 Aspirin Chewable PER TUBE 81 mg DAILY SHAWN Administration Dexamethasone 6 mg 05/13/20 09:00 05/21/20 08:34 Decadron SLOW IVP 6 mg DAILY SHAWN Administration Enoxaparin Sodium 30 mg 05/12/20 21:00 05/21/20 21:21 Lovenox SC 30 mg 0900,2100 SHAWN Administration Insulin Human NPH 10 unit 05/18/20 21:00 05/21/20 21:22 Humulin N SC 10 units HS SHAWN Administration Insulin Human NPH 20 unit 05/19/20 09:00 05/21/20 08:33 Humulin N SC 20 unit DAILY SHAWN Administration Insulin Human Regular 0 units 05/12/20 17:25 05/16/20 21:22 Humulin R SC 2 unit .BEDTIME SLIDING SC PRN Administration Bedtime Correctional Scale Insulin Human Regular 0 units 05/13/20 20:29 05/21/20 16:52 Humulin R SC 2 unit .MODERATE SLIDING SC PRN Administration Moderate Correctional Scale Levetiracetam 500 mg 05/13/20 09:00 05/21/20 21:21 Keppra Oral Solution PER TUBE 500 mg BID SHAWN Administration Pantoprazole Sodium 40 mg 05/13/20 09:00 05/21/20 08:33 Protonix PER TUBE 40 mg DAILY SHAWN Administration Phenobarbital 97.2 mg 05/13/20 09:00 05/21/20 08:34 Phenobarbital PER TUBE 97.2 mg DAILY SHAWN Administration Saccharomyces Boulardii 250 mg 05/13/20 09:00 05/21/20 08:34 Florastor PER TUBE 250 mg DAILY SHAWN Administration Sodium Chloride 10 ml 05/12/20 16:30 05/13/20 10:06 Flush - Normal Saline IVF 10 ml PRN PRN Administration Saline Flush Valproic Acid 500 mg 05/13/20 09:00 05/21/20 21:21 Depakene Liquid PER TUBE 500 mg BID SHAWN Administration - Exam General Appearance: NAD General - other findings: opening eyes on and off ENT: moist mucosa Heart: RRR, no murmur, no gallops, no rubs Respiratory: CTAB, no wheezes, no rales, no ronchi Gastrointestinal: soft, normal bowel sounds Gastrointestinal - other findings: abdominal binder in place Psychiatric: not oriented Hosp A/P (1) Toxic metabolic encephalopathy Code(s): G92 - TOXIC ENCEPHALOPATHY Status: Acute (2) Pneumonia due to COVID-19 virus Code(s): U07.1 - COVID-19; J12.89 - OTHER VIRAL PNEUMONIA Status: Acute (3) Acute respiratory failure with hypoxia Code(s): J96.01 - ACUTE RESPIRATORY FAILURE WITH HYPOXIA Status: Acute (4) Sepsis Code(s): A41.9 - SEPSIS, UNSPECIFIED ORGANISM Status: Acute (5) Stage IV pressure ulcer of sacral region Code(s): L89.154 - PRESSURE ULCER OF SACRAL REGION, STAGE 4 Status: Acute (6) Hyperkalemia Code(s): E87.5 - HYPERKALEMIA Status: Resolved (7) Thrombocytosis Status: Acute (8) Dysphagia Code(s): R13.10 - DYSPHAGIA, UNSPECIFIED Status: Chronic Qualifiers: Dysphagia type: oropharyngeal phase Qualified Code(s): R13.12 - Dysphagia, oropharyngeal phase (9) S/P percutaneous endoscopic gastrostomy (PEG) tube placement Code(s): Z93.1 - GASTROSTOMY STATUS Status: Chronic (10) Seizure disorder Code(s): G40.909 - EPILEPSY, UNSP, NOT INTRACTABLE, WITHOUT STATUS EPILEPTICUS Status: Chronic (11) T2DM (type 2 diabetes mellitus) Status: Chronic Qualifiers: Diabetes mellitus buttermaker helper insulin use: with buttermaker helper use Diabetes mellitus complication detail: with chronic kidney disease Chronic kidney disease stage: stage 3 (moderate) (12) Dementia Code(s): F03.90 - UNSPECIFIED DEMENTIA WITHOUT BEHAVIORAL DISTURBANCE Status: Chronic (13) CAD (coronary artery disease) Code(s): I25.10 - ATHSCL HEART DISEASE OF [place] CORONARY ARTERY W/O ANG PCTRS Status: Chronic (14) Mass of stomach Code(s): K31.89 - OTHER DISEASES OF STOMACH AND DUODENUM Status: Chronic - Plan Plan: 05/22 Dexamethasone day 06/05, full dose Lovenox, can d/c isolation in 6 more days, blood sugar well controlled, tolerating tube feeds. Case management spoke with [facility] and they can take a Covid-19 isolation patient. Will try to d/c today. 05/21 Dexamethasone day 05/05, full dose Lovenox, blood sugar well controlled, off all antibiotics, back to [place] when cleared by ID- spoke with Dr. Bravo and given severity of Covid he recommends 7 more days before cleared from Covid-19 isolation. 05/19 Blood cultures with 2/2 Staph epi., suspect contaminant. Will d/c IV vanc if Dr. Bravo agrees. Continuing on IV steroids (day 03/05, NPH 20u AM/ 10u PM. Blood sugars improved control. Attempted to call sister and MPOAristeo Willis but no answer at phone [phone] 05/18 Continue IV vancomycin for bacteremia. Infectious disease following. Continue IV steroids. CRP improving. Increase NPH to 20 units daily. Continue NPH 10 units nightly. Continue sliding scale. 1 dose of Kayexalate due to hyperkalemia. Attempted to call family with no answer. A.m. labs. 05/17 Completed Remdesivir. Continue Decadron. Blood cultures from [place] came back positive for gram-positive cocci in 2 of 2. Add vancomycin. Monitor vancomycin level. Attempted to call family with no answer. Increase NPH to 15 units daily and 10 units hs. Continue sliding scale. Recheck labs in a.m. 05/16 Complete last dose of Remdesivir today. Continue Decadron. 2 g magnesium today. Recheck labs in a.m. Inflammatory markers improving. Continue PEG tube feeding. Increase NPH to 10 units twice daily. I attempted to call family with no answer. Continue other medications. Discharge planning. 05/12 Patient will be monitored in the COVID unit. Hold IV fluids for now. I discussed with infectious disease. Patient will be started on dexamethasone, Remdesivir with convalescent plasma. PEG tube feeding will be restarted. Will resume seizure medications. Add aspirin due to history of CVA. Change Pepcid to PPIs given her recent EGD findings. Consult wound care. Insulin sliding scale. Continue other medications from the nursing facility. O2 supplementation. Add nebulizer treatment. Recheck labs in a.m. Replace magnesium. Resume po diet when mentation improvesplease note patient was on oral Modified feeds last discharge per speech therapy
[2020-05-22] MEDS ORDERED: Pancrelipase DR 12,000 1 CAP FS PRN (08:30)
[2020-05-22] MEDS ORDERED: Sodium Bicarbonate Tab 325 MG TAB PER TUBE PRN (08:30)
[2020-05-22] MEDS: Enoxaparin Sodium 30 MG/0.3 ML SYRINGE SC SCH (08:35)
[2020-05-22] MEDS: Valproate Sodium 250 mg/5 ml UD Cup PER TUBE SCH (08:35)
[2020-05-22] MEDS: levETIRAcetam 500 mg/5 ml Oral Solution PER TUBE SCH (08:35)
[2020-05-22] MEDS: Dexamethasone 4 mg/ml Vial SLOW IVP SCH (08:35)
[2020-05-22] MEDS: Aspirin Chewable 81 MG TAB PER TUBE SCH (08:37)
[2020-05-22] MEDS: NPH, Human Insulin Isophane 300 UNIT/3 ML VIAL SC SCH (08:37)
[2020-05-22] MEDS: PHENobarbital 32.4 MG TAB PER TUBE SCH (08:37)
[2020-05-22] MEDS: Saccharomyces boulardii 250 MG CAP PER TUBE SCH (08:37)
[2020-05-22] MEDS: Pantoprazole 40 MG GRANULES PACKET PER TUBE SCH (08:37)
[2020-05-22] MEDS ORDERED: metFORMIN 500 MG TAB PER TUBE SCH (17:00)
[2020-05-22 17:44] VITALS: BP 132/71; TEMP 98.4
[2020-05-22] MEDS ORDERED: Apixaban 5 MG TAB PO SCH (21:00)
[2020-05-23] MEDS ORDERED: Dexamethasone 4 MG TAB PER TUBE SCH (08:00)
[2020-05-23] MEDS ORDERED: MULTIVIT PER TUBE SCH (09:00)
[2020-05-23] MEDS ORDERED: FOLIC ACID PER TUBE SCH (09:00)
[2020-05-23] MEDS ORDERED: Famotidine 40 MG/5 ML Oral Suspension PER TUBE SCH (09:00)
[2020-05-23] MEDS ORDERED: VIT C PER TUBE SCH (09:00)
[2020-05-23] MEDS ORDERED: ZINC PER TUBE SCH (09:00)
--- NOTE | 2020-05-23 14:25 | DIS ---
DATE OF ADMISSION: 05/12/2020 DATE OF DISCHARGE: 05/22/2020 PRIMARY CARE PHYSICIAN: Dr. Fenton. REASON FOR ADMISSION: Pneumonia, possibly COVID-19 infection. DIAGNOSES AT DISCHARGE: 1. COVID-19 virus with bilateral pneumonia. 2. Acute respiratory failure with hypoxia. 3. Toxic metabolic encephalopathy. 4. Sepsis, resolved. 5. Stage IV pressure ulcer of sacral region. 6. Hyperkalemia, resolved. 7. Thrombocytosis. 8. Dysphagia, chronic. 9. Status post percutaneous endoscopic gastrostomy tube. 10. Seizure disorder. 11. Type 2 diabetes mellitus. 12. Dementia. 13. Coronary artery disease. 14. Massive stomach. PROCEDURES: 1. CT angiogram of the chest without contrast showing no pulmonary embolism, but with extensive bilateral patchy opacities of lung, commonly seen with COVID-19 pneumonia. 2. Moderate bilateral pleural effusions and cholelithiasis with possible pericholecystic fluid, although incompletely interrogated. CONSULTATIONS: 1. Infectious Disease, Dr. Bravo. 2. Palliative Care. SUMMARY OF HOSPITAL COURSE: This is a 74-year-old retirement resident with a history of CVA, dementia, poor interactions at baseline. She had been in the hospital a week before for Enterococcus UTI with bacteremia and had a PEG tube placed at admission due to her severe dysphagia and aspiration. The patient was found at her retirement to have her oxygen in the in the low 80s along with cough, fevers, shortness of breath. She was sent to the emergency room. There, a CT scan was done. She was treated for presumptive COVID, COVID test did eventually come back positive. Dr. Bravo was consulted. The patient was given remdesivir, was given Decadron. Her blood sugars are running high on the Decadron, so her insulin was titrated up. The patient improved so that she was able to be weaned down to room air, was saturating well. She never did become very interactive. We did have palliative care contact the patient's power of attorney lawyer, which is her sister, who said that she was sure the patient would get better and that she did not want to consider any do not attempt resuscitation or other changes to her care. After that early in the hospital course, we were unable to get hold of the sister any further, so patient remains full code. The patient at the most would say one or two words reflexively, but not actually engage in any sort of meaningful interaction and will not follow commands. The patient did stabilize and completed 9/10 days of steroids. Given her length of stay in the hospital, she would need to remain in isolation for another 6 days. By the day of discharge, we did contact patient's retirement in [place]. They stated they actually can take care of a COVID isolation patient and so we discharging her back to her retirement. DISCHARGE MANAGEMENT: Discharged back to retirement in [place]. ACTIVITY: As tolerated. DIET: Tube feeding diet. THERAPY: No therapy recommendations at this time. EQUIPMENT SUPPLIES: Oxygen as needed and proper PEG tube care. DISCHARGE MEDICATIONS: 1. Dexamethasone 10 mg per tube for 1 more day and then discontinue. 2. Eliquis 5 mg twice daily for another 2 months given the severity of her illness. 3. Aspirin 81 mg per tube daily. 4. Calcium carbonate as [place] [address] units 1 cap per protocol as needed for tube occlusion. 6. NPH 20 units subcu daily in the morning and 10 units at night. 7. Zofran as needed. 8. Senokot-S 2 tabs p.o. twice a day as needed. 9. Sodium bicarbonate per tube obstruction protocol. 10. Acetaminophen as needed. 11. Acetaminophen with codeine as needed. 12. Albuterol as needed. 13. Colace 100 mg per tube twice a day as needed for constipation. 14. Famotidine 20 mg per tube daily. 15. Combivent 1 puff inhaled q.4 hours as needed. 16. Levetiracetam 500 mg per tube twice daily. 17. Metformin 1000 mg per tube twice a day. 18. Morphine sulfate solution 1 mL per tube q.1 hour as needed for shortness of breath and pain. 19. Multivitamin Decubi Cipriano capsule 1 cap per tube daily. 20. Phenobarbital 97.2 mg per tube at night. 21. Florastor 250 mg per tube daily. 22. Valproic acid 500 mg per tube twice a day. Arranging the details of this discharge took 35 minutes. Job ID: [id number] [facility]
== END 2020-05-22 19:03 | DRG 871 ==
LOC: ERS 14:30 → 2SW 16:26 → T4-A 05-15 18:43
PROVIDERS: ADMIT Internal Medicine; ATTEND Internal Medicine
PROC: 8E0ZXY6 Isolation (ICD-10-PCS; principal; 2020-05-12)
PROC: XW033E5 Introduction of Remdesivir Anti-infective into Peripheral Vein, Percutaneous Approach, New Technology Group 5 (ICD-10-PCS; 2020-05-12)
PROC: XW13325 Transfusion of Convalescent Plasma (Nonautologous) into Peripheral Vein, Percutaneous Approach, New Technology Group 5 (ICD-10-PCS; 2020-05-13)
PROC: XW033E5 Introduction of Remdesivir Anti-infective into Peripheral Vein, Percutaneous Approach, New Technology Group 5 (ICD-10-PCS; 2020-05-13)
DX: A41.89 Other specified sepsis (principal); L89.154 Pressure ulcer of sacral region, stage 4; U07.1 COVID-19; J12.89 Other viral pneumonia; G92 Toxic encephalopathy; J96.01 Acute respiratory failure with hypoxia; E87.1 Hypo-osmolality and hyponatremia; E87.2 Acidosis; R64 Cachexia; Z68.1 Body mass index [BMI] 19.9 or less, adult; N18.3 Chronic kidney disease, stage 3 (moderate); Z51.5 Encounter for palliative care; E78.5 Hyperlipidemia, unspecified; I12.9 Hypertensive chronic kidney disease with stage 1 through stage 4 chronic kidney disease, or unspecified chronic kidney disease; E11.22 Type 2 diabetes mellitus with diabetic chronic kidney disease; F41.9 Anxiety disorder, unspecified; F32.9 Major depressive disorder, single episode, unspecified; R65.20 Severe sepsis without septic shock; D63.1 Anemia in chronic kidney disease; R62.50 Unspecified lack of expected normal physiological development in childhood; E83.42 Hypomagnesemia; E83.39 Other disorders of phosphorus metabolism; G40.909 Epilepsy, unspecified, not intractable, without status epilepticus; K80.20 Calculus of gallbladder without cholecystitis without obstruction; R13.12 Dysphagia, oropharyngeal phase; K31.89 Other diseases of stomach and duodenum; F01.50 Vascular dementia, unspecified severity, without behavioral disturbance, psychotic disturbance, mood disturbance, and anxiety; Z88.1 Allergy status to other antibiotic agents; Z88.2 Allergy status to sulfonamides; Z88.6 Allergy status to analgesic agent; Z79.4 Long term (current) use of insulin; Z79.899 Other long term (current) drug therapy; Z74.01 Bed confinement status; I69.391 Dysphagia following cerebral infarction; Z93.1 Gastrostomy status
CPT/HCPCS: 36415; 36416; 36430; 36600; 71275; 80048; 80053; 80076; 80202; 82728; 83605; 83735; 84100; 85025; 85379; 86140; 86769; 86850; 86900; 86901; J1100; J1650; J1815; J3370; J3475; J3490; J7050; Q9967; S0028; U0002